=== PATIENT | female | born 1990 | race Caucasian/White ===

== ENCOUNTER 2020-09-22 13:19 | Outpatient (RCR) | payer MEDICARE, MEDICAID, SELFPAY | END 2020-10-11 13:31 | disposition home or self-care (01) | LOC: HO.WCC 13:19 | PROVIDERS: Visit Provider Physician Assistant | DX: L89.893 Pressure ulcer of other site, stage 3 (principal); L84 Corns and callosities; G40.909 Epilepsy, unspecified, not intractable, without status epilepticus; G62.9 Polyneuropathy, unspecified; F42.9 Obsessive-compulsive disorder, unspecified; F41.9 Anxiety disorder, unspecified; F95.2 Tourette's disorder | CPT/HCPCS: 99212 ==

== ENCOUNTER 2020-12-01 12:51 | Outpatient (REF) | payer MEDICARE, MEDICAID, SELFPAY ==
[2020-12-01 14:17] LABS: Neut%MD 54.7 %; Neutrophils Absolute Auto 4.5 X10*3/uL (2.0-8.3); WBCANC 8.2 X10*3/uL
[2020-12-01 15:00] LABS: Syphilis Screen Nonreactive (Nonreactive)
[2020-12-02 13:06] LABS: Antibody to SS-A Antigen <1.0 NEG AI (<1.0 NEG); Antibody to SS-B Antigen <1.0 NEG AI (<1.0 NEG)
[2020-12-04 22:47] LABS: Prot Elec - Albumin 3.8 g/dL (3.8-4.8); Prot Elec - Alpha1 0.3 g/dL (0.2-0.3); Prot Elec - Alpha2 0.9 g/dL (0.5-0.9); Prot Elec - Beta 1 0.4 g/dL (0.4-0.6); Prot Elec - Beta 2 0.3 g/dL (0.2-0.5); Prot Elec - Gamma 0.4 g/dL (0.8-1.7); Prot Elec - Total Protein 6.1 g/dL (6.1-8.1)
[2020-12-05 10:00] LABS: Ceruloplasmin 34 mg/dL (18-53)
[2020-12-05 13:27] LABS: Transglutaminase Ab IgG 1 U/mL; Transglutaminase IgA 1 U/mL
== END 2020-12-01 12:52 | disposition home or self-care (01) ==
LOC: HO.LAB 12:51
PROVIDERS: PCP Internal Medicine; Visit Provider Psychiatry & Neurology Neurology
DX: G62.9 Polyneuropathy, unspecified (principal)
CPT/HCPCS: 36415; 82390; 83516; 84155; 84165; 85048; 86235; 86780

== ENCOUNTER 2020-12-11 14:35 | Outpatient (REF) | payer MEDICARE, MEDICAID, SELFPAY ==
[2020-12-11 19:26] LABS: Free T4 (Free Thyroxine) 1.06 ng/dL (0.71-1.85); Thyroid Stimulating Hormone 5.11 uIU/mL (0.32-4.0)
== END 2020-12-11 14:36 | disposition home or self-care (01) ==
LOC: HO.MANLDS 14:35
PROVIDERS: PCP Internal Medicine; Visit Provider Physician Assistant
DX: N39.0 Urinary tract infection, site not specified (principal); R53.83 Other fatigue
CPT/HCPCS: 36415; 84439; 84443; 87086

== ENCOUNTER 2021-01-30 14:17 | Outpatient (REF) | payer MEDICARE, MEDICAID, SELFPAY ==
--- NOTE | 2021-01-30 14:30 | ECG_ITS ---
Test Reason : R00.2 Blood Pressure : / mmHG Vent. Rate : 082 BPM Atrial Rate : 082 BPM P-R Int : 148 ms QRS Dur : 076 ms QT Int : 416 ms P-R-T Axes : 017 055 070 degrees QTc Int : 486 ms Normal sinus rhythm Normal ECG No previous ECGs available Referred By: Jeovanny Ford Electronically Signed By:Geovany Darden
[2021-01-30 15:07] LABS: MANUAL DIFF FLAG NO
[2021-01-30 15:15] LABS: Basophils Absolute Auto 0.1 X10*3/uL (0.0-0.2); Basophils Percent Auto 0.7 % (0-2); Eosinophils Absolute Auto 0.3 X10*3/uL (0.0-0.4); Eosinophils Percent Auto 3.9 % (0-4); Hematocrit 36.4 % (37-47); Hemoglobin 12.2 g/dl (12.0-16.0); Imm Gran Abs Auto 0.04 X10*3/uL (0.00-0.03); Imm Gran Pct Auto 0.6 % (0.0-0.4); Lymphocytes Absolute Auto 1.9 X10*3/uL (1.2-4.9); Lymphocytes Percent Auto 25.9 % (20-40); Mean Corpuscular HGB Conc 33.5 g/dl (31.0-35.0); Mean Corpuscular Hemoglobin 29.1 pg (27.0-33.0); Mean Corpuscular Volume 86.9 fL (80-98); Mean Platelet Volume 8.8 fL (9.4-12.3); Monocytes Absolute Auto 0.3 X10*3/uL (0.1-1.2); Monocytes Percent Auto 4.8 % (2-11); Neutrophils Absolute Auto 4.6 X10*3/uL (2.0-8.3); Neutrophils Percent Auto 64.1 % (45-73); Platelet Count 235 X10*3/uL (160-400); Red Blood Count 4.19 X10*6/uL (4.20-5.50); Red Cell Distribution Width 12.6 % (11.0-16.0); White Blood Count 7.1 X10*3/uL (4.8-10.8)
[2021-01-30 15:31] LABS: C Reactive Protein 1.22 mg/dL (< or = 0.50)
[2021-01-30 15:48] LABS: Alanine Aminotransferase 28 U/L (0-31); Albumin Level 4.3 g/dL (3.5-5.0); Alkaline Phosphatase 54 U/L (39-117); Anion Gap 13 (12-20); Aspartate Amino Transferase 39 U/L (5-31); Bilirubin Total 0.3 mg/dL (0.0-1.0); Blood Urea Nitrogen 4 mg/dL (9-16); Calcium 9.1 mg/dL (8.4-10.2); Carbon Dioxide 26 mmol/L (22-29); Chloride 94 mmol/L (96-108); Estimated Glomerular Filt Rate > 60; Glucose Random 150 mg/dL (60-115); Potassium 4.4 mmol/L (3.3-5.1); Sodium 129 mmol/L (135-145); Total Protein 6.4 g/dL (6.5-8.0)
[2021-01-30 15:55] LABS: TSH reflex Free T4 1.36 uIU/mL (0.32-4.0)
[2021-01-30 16:03] LABS: Rheumatoid Factor < 15.0 IU/mL (<15.0)
[2021-01-31 08:27] LABS: Lyme Abs Screen <0.90 index
[2021-01-31 14:52] LABS: Complement C3 102 mg/dL (83-193); Immunoglobulin G 419 mg/dL (600-1640)
[2021-01-31 23:41] LABS: Anti Nuclear Antibody Screen POSITIVE (NEGATIVE); Anti Nuclear Antibody Titer 1:40 titer
== END 2021-01-30 14:18 | disposition home or self-care (01) ==
LOC: HO.LAB 14:17
PROVIDERS: Absent Provider Psychiatry & Neurology Neurology; PCP Internal Medicine; Visit Provider Internal Medicine
DX: R00.2 Palpitations (principal); M19.90 Unspecified osteoarthritis, unspecified site; R20.0 Anesthesia of skin
CPT/HCPCS: 36415; 80053; 82784; 84443; 85025; 86038; 86039; 86140; 86160; 86431; 86617; 86618; 93005

== ENCOUNTER 2021-06-18 11:59 | Outpatient (REF) | payer MEDICARE, MEDICAID, SELFPAY | END 2021-06-18 12:00 | disposition home or self-care (01) | LOC: HO.MANLDS 11:59 | PROVIDERS: PCP Physician Assistant; Visit Provider Physician Assistant | DX: R30.0 Dysuria (principal) | CPT/HCPCS: 87086 ==

== ENCOUNTER 2021-07-17 08:50 | Outpatient (RCR) | payer MEDICARE, MEDICAID, SELFPAY | END 2021-11-01 09:14 | disposition home or self-care (01) | LOC: HO.WCC 08:50 | PROVIDERS: PCP Internal Medicine; Visit Provider Physician Assistant | DX: Z09 Encounter for follow-up examination after completed treatment for conditions other than malignant neoplasm (principal); E11.40 Type 2 diabetes mellitus with diabetic neuropathy, unspecified; R26.9 Unspecified abnormalities of gait and mobility; F42.9 Obsessive-compulsive disorder, unspecified; G40.909 Epilepsy, unspecified, not intractable, without status epilepticus; Z79.2 Long term (current) use of antibiotics; Z86.31 Personal history of diabetic foot ulcer | CPT/HCPCS: 11042; 97597; 99212; 99213 ==

== ENCOUNTER 2021-08-02 12:17 | Inpatient (IN) | payer MEDICARE, MEDICAID, SELFPAY ==
[2021-08-02] VITALS (7 sets, daily range): BP systolic 105–141; BP diastolic 56–78; PULSE 108–126; RESP 15–25; TEMP 37.1; O2SAT 95–97; BMI 35.2
--- NOTE | ~2021-08-02 | XR_ITS ---
EXAMINATION: XR HIP, LEFT CLINICAL INFORMATION: Left hip pain COMPARISON: None TECHNIQUE: AP pelvis and 2 views of the left hip FINDINGS: There is no evidence of acute fracture or diastases of the pelvis. No pelvic lesion is appreciated. Sacroiliac joints unremarkable. Status post right total hip arthroplasty. There is no evidence of acute fracture or dislocation of the left hip. Left hip joint spaces maintained. On the oblique views of the left hip is a question of some regions of diminished density within the femoral head. There is no evidence of femoral head collapse. The region may be artifactual in nature with overlying pannus being present. On dedicated views of the left hip I do not see this appearance. XR/XR hip LT w PEL1V IMPRESSION: No evidence of acute fracture or diastases of the pelvis. No definite left hip abnormality appreciated with regions of diminished density on AP pelvic views likely being artifactual in nature.
--- NOTE | ~2021-08-02 | US_ITS ---
EXAMINATION: US RETROPERITONEAL LIMITED (RENAL ONLY) CLINICAL INFORMATION: [place]. COMPARISON: None TECHNIQUE: Sonographic evaluation of the kidneys was performed including grayscale and color Doppler. The study is technically limited secondary to patient body habitus and significant bowel gas. FINDINGS: RIGHT KIDNEY: 11 x 5.4 x 8.1 cm (SAG x AP x TRV). The kidney is normal in size, contour, and echogenicity. Renal cortical thickness is normal. No calculi or focal parenchymal lesions are seen. There may be mild dilation of the renal pelvis, though the study is technically limited. LEFT KIDNEY: 14.8 x 6.3 x 6.2 cm (SAG x AP x TRV). The kidney is normal in size, contour, and echogenicity. Renal cortical thickness is normal. No calculi or focal parenchymal lesions are seen. There may be mild dilation of the renal pelvis, the study is technically limited. US/US renal BI IMPRESSION: Technically limited study with possible mild dilation of the renal pelvis bilaterally. No other abnormality seen.
--- NOTE | ~2021-08-02 | MR_ITS ---
EXAMINATION: MRI LEFT FOOT WITHOUT AND WITH CONTRAST CLINICAL INFORMATION: Left lower extremity cellulitis. Left MTP ulcer. Evaluate for osteomyelitis. COMPARISON: None TECHNIQUE: MRI of the left foot was performed before and after contrast. Contrast dose 10 mL of Gadavist given intravenously. Qdfdi-aw-texh includes the forefoot and distal midfoot. FINDINGS: The exam is partially limited by motion artifact. SUBCUTANEOUS SOFT TISSUES: There is mild scattered signal primarily along the dorsal aspect of the foot. This does not enhance. This has the appearance of edema. MUSCLES AND TENDONS: There is fatty infiltration and some edema noted throughout the muscles of the foot likely reflecting denervation myositis. BONE AND JOINTS: Normal. I do not see abnormal marrow signal or bone erosion. NEUROVASCULAR STRUCTURES: Normal. MR/MR foot LT wo/w con IMPRESSION: No evidence for osteomyelitis. Mild generalized edema in the subcutaneous soft tissues. Findings consistent with denervation myositis.
--- NOTE | 2021-08-02 13:14 | ED_ITS ---
HPI - General Adult General Chief complaint: General Medical Stated complaint: fever,bodyaches Time Seen by Provider: 08/02/21 13:06 History of Present Illness HPI narrative: Patient is a 31-year-old female presents today with having sore throat. Also having tongue pain. Also having generalized body malaise. Also complaining of pain to the left hip. 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 The pain is similar. Patient had the right 1 operated on a few years ago at [facility]. Patient did not receive her COVID vaccine. She is from home. No focal weakness. Positive diffuse body ache. Related Data Allergies Allergy/AdvReac Type Severity Reaction Status Date / Time barium iodide [BARIUM IODIDE] Allergy Unknown UNKNOWN Unverified 05/18/20 16:22 carrot [CARROTS] Allergy Unknown UNKOWN Unverified 05/18/20 16:22 clonazepam [CLONAZEPAM] Allergy Unknown UNKNOWN Unverified 05/18/20 16:22 fluoxetine [From PROZAC] Allergy Unknown UNKNOWN Unverified 05/18/20 16:22 neris [NERIS] Allergy Unknown UNKNOWN Unverified 05/18/20 16:22 lactose [LACTOSE] Allergy Unknown UNKNOWN Unverified 05/18/20 16:22 latex [LATEX] Allergy Unknown UNKNOWN Unverified 05/18/20 16:22 metoclopramide [From REGLAN] Allergy Unknown UNKNOWN Unverified 05/18/20 16:22 morphine [MORPHINE] Allergy Unknown UNKNOWN Unverified 05/18/20 16:22 oats [OATS] Allergy Unknown UNKNOWN Unverified 05/18/20 16:22 peanut [PEANUT] Allergy Unknown UNKNOWN Unverified 05/18/20 16:22 pepper (genus Capsicum) Allergy Unknown UNKNOWN Unverified 05/18/20 16:22 [PEPPER] potato [POTATO] Allergy Unknown UNKNOWN Unverified 05/18/20 16:22 red dye [RED DYE] Allergy Unknown UNKNOWN Unverified 05/18/20 16:22 sumatriptan [From IMITREX] Allergy Unknown UNKNOWN Unverified 05/18/20 16:22 tetanus and diphtheria Allergy Unknown HIVES Unverified 05/18/20 16:22 toxoids [TETANUS AND DIPHTHERIA TOXOIDS] tomato [TOMATO] Allergy Unknown UNKNOWN Unverified 05/18/20 16:22 tree nut [TREE NUT] Allergy Unknown UNKNOWN Unverified 05/18/20 16:22 cephalexin Allergy Unknown Verified 08/02/21 13:37 AMBICA GUM Allergy Unknown UNKNOWN Uncoded 05/18/20 16:22 Review of Systems Review of Systems: Positive generalized body ache Minimal coughing Yes all other systems are reviewed and are negative [facility] Past Medical History Attestation statement: The following information was validated with the patient. Social History Social History Alcohol intake: never Patient Tobacco Use Status: Never used Tobacco Use of substances other than those prescribed or required for medical reasons: No Advance Directives: No Advance Directives Information Provided: No Patient : No Physical Exam Vital Signs: Vital Signs: Last Vital Signs Temp 98.7 F 08/02/21 12:37 Pulse 114 H 08/02/21 16:53 Resp 16 08/02/21 16:53 BP 122/64 08/02/21 16:53 Pulse Ox 95 08/02/21 16:53 BMI result Body Mass Index 35.2 Appearance: Alert. Oriented X3. No acute distress. Eyes: Pupils equal, round and reactive to light. ENT: Pharynx normal. No posterior pharynx erythema. Tonsils not enlarged. Tongue is normal. Neck: Normal inspection. Neck supple. No lymph nodes noted. No crepitus CVS: Normal heart rate and rhythm. Pulses normal. Normal S1 and S2 Respiratory: No respiratory distress. Breath sounds normal. No Wheezing. No rales Abdomen: Soft and nontender. No rigidity. No distention. good BS x4 Skin: Skin warm and dry. Normal skin color. Normal skin turgor. Extremities: No lower extremity edema. Neurovascular intact to all extremities. No Lacerations. No Rash Neuro: Oriented X 3. No motor deficit. No sensory deficit. Moving all extermities. No slurred speech Medical Decision Making MDM Narrative Medical decision making narrative: Patient presented with upper respiratory symptoms. Patient's flu and COVID test were negative. Strep test negative. Urine negative for infection. Sodium however came back at 125. Question etiology. Question secondary to dehydration. Patient not on hydrochlorothiazide. Has many psychiatric history is on multiple medications. Explained to patient the need to recheck sodium level. Possible admission. Maryann ackerman states that she does not want to stay. She understood the risk of having lower sodium including . Patient leaving against medical advice. Patient has no neck pain. No evidence for meningitis. No rash no cellulitis. Lab Data Result diagrams: 08/02/21 13:57 08/02/21 13:57 Labs: Lab Results 08/02/21 08/02/21 08/02/21 Range/Units 13:57 13:57 13:57 WBC 15.9 H (4.8-10.8) X10*3/uL RBC 4.43 (4.20-5.50) X10*6/uL Hgb 11.9 L (12.0-16.0) g/dl Hct 35.4 L (37.0-47.0) % MCV 79.9 L (80.0-98.0) fL MCH 26.9 L (27.0-33.0) pg MCHC 33.6 (31.0-35.0) g/dl RDW 13.7 (11.0-16.0) % Plt Count 171 (160-400) X10*3/uL MPV 8.9 L (9.4-12.3) fL Immature Gran % (Auto) 0.9 H (0.0-0.4) % Neut % (Auto) 91.0 H (45-73) % Lymph % (Auto) 3.7 L (20-40) % [place] % (Auto) 4.1 (2-11) % Eos % (Auto) 0.0 (0-4) % Baso % (Auto) 0.3 (0-2) % Lymph # (Auto) 0.6 L (1.2-4.9) X10*3/uL [place] # (Auto) 0.7 (0.1-1.2) X10*3/uL Eos # (Auto) 0.0 (0.0-0.4) X10*3/uL Baso # (Auto) 0.0 (0.0-0.2) X10*3/uL Abs Immat Gran (auto) 0.14 H (0.00-0.03) X10*3/uL Absolute Neuts (auto) 14.5 H (2.0-8.3) x10*3/uL Absolute Nucleated RBC 0.000 (0.0-0.012) X10*3/uL Nucleated RBC % (auto) 0.0 (0.0-0.2) /100WBC Smear Tech's Comments VERIFIED Sodium 125 L (135-145) mmol/L Potassium 4.7 (3.3-5.1) mmol/L Chloride 94 L (96-108) mmol/L Carbon Dioxide 20 L (22-29) mmol/L Anion Gap 16 (12-20) BUN 3 L (9-16) mg/dL Creatinine 0.70 (0.5-1.4) mg/dL Estim Creat Clear Calc 146.5 Estimated GFR > 60 Random Glucose 166 H (60-115) mg/dL Calcium 8.9 (8.4-10.2) mg/dL Beta HCG, Quant < 2 mIU/mL Urine Color Urine Appearance Urine pH (5.0-8.0) Ur Specific [place] (1.005-1.025) Urine Protein (NEG-TRACE) MG/DL Urine Glucose (UA) (NEG) MG/DL Urine Ketones (NEG) MG/DL Urine Blood (NEG) Urine Nitrite (NEG) Ur Leukocyte Esterase (NEG) Urine RBC (0) /HPF Urine WBC (0-4) /HPF Ur Squamous Epith Cells /LPF Urine Bacteria /LPF COVID-19 (ULISES) Negative (Negative) COVID-19 Clin Com See Note S. pyogenes GrpA JADON (Negative) 08/02/21 08/02/21 Range/Units 14:26 16:37 WBC (4.8-10.8) X10*3/uL RBC (4.20-5.50) X10*6/uL Hgb (12.0-16.0) g/dl Hct (37.0-47.0) % MCV (80.0-98.0) fL MCH (27.0-33.0) pg MCHC (31.0-35.0) g/dl RDW (11.0-16.0) % Plt Count (160-400) X10*3/uL MPV (9.4-12.3) fL Immature Gran % (Auto) (0.0-0.4) % Neut % (Auto) (45-73) % Lymph % (Auto) (20-40) % [place] % (Auto) (2-11) % Eos % (Auto) (0-4) % Baso % (Auto) (0-2) % Lymph # (Auto) (1.2-4.9) X10*3/uL [place] # (Auto) (0.1-1.2) X10*3/uL Eos # (Auto) (0.0-0.4) X10*3/uL Baso # (Auto) (0.0-0.2) X10*3/uL Abs Immat Gran (auto) (0.00-0.03) X10*3/uL Absolute Neuts (auto) (2.0-8.3) x10*3/uL Absolute Nucleated RBC (0.0-0.012) X10*3/uL Nucleated RBC % (auto) (0.0-0.2) /100WBC Smear Tech's Comments Sodium (135-145) mmol/L Potassium (3.3-5.1) mmol/L Chloride (96-108) mmol/L Carbon Dioxide (22-29) mmol/L Anion Gap (12-20) BUN (9-16) mg/dL Creatinine (0.5-1.4) mg/dL Estim Creat Clear Calc Estimated GFR Random Glucose (60-115) mg/dL Calcium (8.4-10.2) mg/dL Beta HCG, Quant mIU/mL Urine Color YELLOW Urine Appearance CLEAR Urine pH 5.5 (5.0-8.0) Ur Specific [place] <= 1.005 (1.005-1.025) Urine Protein NEG (NEG-TRACE) MG/DL Urine Glucose (UA) NEG (NEG) MG/DL Urine Ketones 5 (NEG) MG/DL Urine Blood NEG (NEG) Urine Nitrite NEG (NEG) Ur Leukocyte Esterase NEG (NEG) Urine RBC 0 (0) /HPF Urine WBC 0 (0-4) /HPF Ur Squamous Epith Cells 1+ /LPF Urine Bacteria TRACE /LPF COVID-19 (ULISES) (Negative) COVID-19 Clin Com S. pyogenes GrpA JADON Negative (Negative) Discharge Plan Discharge Clinical Impression: Acute hyponatremia, Left against medical advice Patient Disposition: Left Against Medical Advice Instructions: Hyponatremia (ED), Against Medical Advice (ED) Referrals: Jeovanny Ford MD [Primary Care Provider] - 2 days (Change of mind please come back to the emergency department.)
[2021-08-02] MEDS: Ketorolac Tromethamine 30 MG/ML VIAL IVPUSH (13:37)
[2021-08-02] MEDS: 0.9 % Sodium Chloride 1,000 ML 999 ML IV ×4 (13:37→18:38)
[2021-08-02 14:08] LABS: Basophils Percent Auto 0.3 % (0-2); Hematocrit 35.4 % (37.0-47.0); Hemoglobin 11.9 g/dl (12.0-16.0); Imm Gran Abs Auto 0.14 X10*3/uL (0.00-0.03); Imm Gran Pct Auto 0.9 % (0.0-0.4); Lymphocytes Absolute Auto 0.6 X10*3/uL (1.2-4.9); Lymphocytes Percent Auto 3.7 % (20-40); MANUAL DIFF FLAG SCAN; Mean Corpuscular HGB Conc 33.6 g/dl (31.0-35.0); Mean Corpuscular Hemoglobin 26.9 pg (27.0-33.0); Mean Corpuscular Volume 79.9 fL (80.0-98.0); Mean Platelet Volume 8.9 fL (9.4-12.3); Monocytes Absolute Auto 0.7 X10*3/uL (0.1-1.2); Monocytes Percent Auto 4.1 % (2-11); Neutrophils Absolute Auto 14.5 x10*3/uL (2.0-8.3); Platelet Count 171 X10*3/uL (160-400); Red Blood Count 4.43 X10*6/uL (4.20-5.50); Red Cell Distribution Width 13.7 % (11.0-16.0); SCAN SMEAR FLAG 1; White Blood Count 15.9 X10*3/uL (4.8-10.8)
[2021-08-02 14:21] LABS: COVID-19 Test Negative (Negative)
[2021-08-02 14:25] LABS: HCG Quantitative < 2 mIU/mL; SLIDE REVIEW VERIFIED
[2021-08-02 14:29] LABS: Anion Gap 16 (12-20); Blood Urea Nitrogen 3 mg/dL (9-16); Calcium 8.9 mg/dL (8.4-10.2); Carbon Dioxide 20 mmol/L (22-29); Chloride 94 mmol/L (96-108); Creatinine Clr Calc Pharmacy 146.5; Estimated Glomerular Filt Rate > 60; Glucose Random 166 mg/dL (60-115); Potassium 4.7 mmol/L (3.3-5.1); Sodium 125 mmol/L (135-145)
[2021-08-02 15:03] LABS: Strep A Nucleic Acid Negative (Negative)
[2021-08-02] MEDS: LORazepam 2 MG/ML VIAL 1 MG IVPUSH ×2 (15:27→19:48)
[2021-08-02 16:41] LABS: Appearance Urine CLEAR; Color Urine YELLOW; Glucose Urine UA NEG (NEG); Leukocyte Esterase Urine NEG (NEG); Nitrite Urine NEG (NEG); PH 5.5 (5.0-8.0); Specific Gravity - Urine <= 1.005 (1.005-1.025); Urine Blood NEG (NEG); Urine Ketones 5 MG/DL (NEG); Urine Protein NEG (NEG-TRACE)
[2021-08-02 16:49] LABS: Bacteria Urine TRACE /LPF; RBC Urine 0 /HPF (0); Squamous Epithelial Cell Urine 1+ /LPF; WBC Urine 0 /HPF (0-4)
--- NOTE | 2021-08-02 17:55 | ED_ITS ---
HPI - General Adult General Chief complaint: General Medical Stated complaint: fever,bodyaches Time Seen by Provider: 08/02/21 13:06 Related Data Allergies Allergy/AdvReac Type Severity Reaction Status Date / Time barium iodide [BARIUM IODIDE] Allergy Unknown UNKNOWN Unverified 05/18/20 16:22 carrot [CARROTS] Allergy Unknown UNKOWN Unverified 05/18/20 16:22 clonazepam [CLONAZEPAM] Allergy Unknown UNKNOWN Unverified 05/18/20 16:22 fluoxetine [From PROZAC] Allergy Unknown UNKNOWN Unverified 05/18/20 16:22 neris [NERIS] Allergy Unknown UNKNOWN Unverified 05/18/20 16:22 lactose [LACTOSE] Allergy Unknown UNKNOWN Unverified 05/18/20 16:22 latex [LATEX] Allergy Unknown UNKNOWN Unverified 05/18/20 16:22 metoclopramide [From REGLAN] Allergy Unknown UNKNOWN Unverified 05/18/20 16:22 morphine [MORPHINE] Allergy Unknown UNKNOWN Unverified 05/18/20 16:22 oats [OATS] Allergy Unknown UNKNOWN Unverified 05/18/20 16:22 peanut [PEANUT] Allergy Unknown UNKNOWN Unverified 05/18/20 16:22 pepper (genus Capsicum) Allergy Unknown UNKNOWN Unverified 05/18/20 16:22 [PEPPER] potato [POTATO] Allergy Unknown UNKNOWN Unverified 05/18/20 16:22 red dye [RED DYE] Allergy Unknown UNKNOWN Unverified 05/18/20 16:22 sumatriptan [From IMITREX] Allergy Unknown UNKNOWN Unverified 05/18/20 16:22 tetanus and diphtheria Allergy Unknown HIVES Unverified 05/18/20 16:22 toxoids [TETANUS AND DIPHTHERIA TOXOIDS] tomato [TOMATO] Allergy Unknown UNKNOWN Unverified 05/18/20 16:22 tree nut [TREE NUT] Allergy Unknown UNKNOWN Unverified 05/18/20 16:22 cephalexin Allergy Unknown Verified 08/02/21 13:37 AMBICA GUM Allergy Unknown UNKNOWN Uncoded 05/18/20 16:22 PMFSH Social History Social History Alcohol intake: never Patient Tobacco Use Status: Never used Tobacco Use of substances other than those prescribed or required for medical reasons: No Advance Directives: No Advance Directives Information Provided: No Patient : No Physical Exam Vital Signs: Vital Signs: Last Vital Signs Temp 98.7 F 08/02/21 12:37 Pulse 114 H 08/02/21 16:53 Resp 16 08/02/21 16:53 BP 122/64 08/02/21 16:53 Pulse Ox 95 08/02/21 16:53 BMI result Body Mass Index 35.2 Medical Decision Making Lab Data Result diagrams: 08/02/21 13:57 08/02/21 13:57 Labs: Lab Results 08/02/21 08/02/21 08/02/21 Range/Units 13:57 13:57 13:57 WBC 15.9 H (4.8-10.8) X10*3/uL RBC 4.43 (4.20-5.50) X10*6/uL Hgb 11.9 L (12.0-16.0) g/dl Hct 35.4 L (37.0-47.0) % MCV 79.9 L (80.0-98.0) fL MCH 26.9 L (27.0-33.0) pg MCHC 33.6 (31.0-35.0) g/dl RDW 13.7 (11.0-16.0) % Plt Count 171 (160-400) X10*3/uL MPV 8.9 L (9.4-12.3) fL Immature Gran % (Auto) 0.9 H (0.0-0.4) % Neut % (Auto) 91.0 H (45-73) % Lymph % (Auto) 3.7 L (20-40) % [place] % (Auto) 4.1 (2-11) % Eos % (Auto) 0.0 (0-4) % Baso % (Auto) 0.3 (0-2) % Lymph # (Auto) 0.6 L (1.2-4.9) X10*3/uL [place] # (Auto) 0.7 (0.1-1.2) X10*3/uL Eos # (Auto) 0.0 (0.0-0.4) X10*3/uL Baso # (Auto) 0.0 (0.0-0.2) X10*3/uL Abs Immat Gran (auto) 0.14 H (0.00-0.03) X10*3/uL Absolute Neuts (auto) 14.5 H (2.0-8.3) x10*3/uL Absolute Nucleated RBC 0.000 (0.0-0.012) X10*3/uL Nucleated RBC % (auto) 0.0 (0.0-0.2) /100WBC Smear Tech's Comments VERIFIED Sodium 125 L (135-145) mmol/L Potassium 4.7 (3.3-5.1) mmol/L Chloride 94 L (96-108) mmol/L Carbon Dioxide 20 L (22-29) mmol/L Anion Gap 16 (12-20) BUN 3 L (9-16) mg/dL Creatinine 0.70 (0.5-1.4) mg/dL Estim Creat Clear Calc 146.5 Estimated GFR > 60 POC Glucose (60-115) mg/dL Random Glucose 166 H (60-115) mg/dL Calcium 8.9 (8.4-10.2) mg/dL Beta HCG, Quant < 2 mIU/mL Urine Color Urine Appearance Urine pH (5.0-8.0) Ur Specific [place] (1.005-1.025) Urine Protein (NEG-TRACE) MG/DL Urine Glucose (UA) (NEG) MG/DL Urine Ketones (NEG) MG/DL Urine Blood (NEG) Urine Nitrite (NEG) Ur Leukocyte Esterase (NEG) Urine RBC (0) /HPF Urine WBC (0-4) /HPF Ur Squamous Epith Cells /LPF Urine Bacteria /LPF COVID-19 (ULISES) Negative (Negative) COVID-19 Clin Com See Note S. pyogenes GrpA JADON (Negative) 08/02/21 08/02/21 08/02/21 Range/Units 14:26 16:37 18:07 WBC (4.8-10.8) X10*3/uL RBC (4.20-5.50) X10*6/uL Hgb (12.0-16.0) g/dl Hct (37.0-47.0) % MCV (80.0-98.0) fL MCH (27.0-33.0) pg MCHC (31.0-35.0) g/dl RDW (11.0-16.0) % Plt Count (160-400) X10*3/uL MPV (9.4-12.3) fL Immature Gran % (Auto) (0.0-0.4) % Neut % (Auto) (45-73) % Lymph % (Auto) (20-40) % [place] % (Auto) (2-11) % Eos % (Auto) (0-4) % Baso % (Auto) (0-2) % Lymph # (Auto) (1.2-4.9) X10*3/uL [place] # (Auto) (0.1-1.2) X10*3/uL Eos # (Auto) (0.0-0.4) X10*3/uL Baso # (Auto) (0.0-0.2) X10*3/uL Abs Immat Gran (auto) (0.00-0.03) X10*3/uL Absolute Neuts (auto) (2.0-8.3) x10*3/uL Absolute Nucleated RBC (0.0-0.012) X10*3/uL Nucleated RBC % (auto) (0.0-0.2) /100WBC Smear Tech's Comments Sodium (135-145) mmol/L Potassium (3.3-5.1) mmol/L Chloride (96-108) mmol/L Carbon Dioxide (22-29) mmol/L Anion Gap (12-20) BUN (9-16) mg/dL Creatinine (0.5-1.4) mg/dL Estim Creat Clear Calc Estimated GFR POC Glucose 140 H (60-115) mg/dL Random Glucose (60-115) mg/dL Calcium (8.4-10.2) mg/dL Beta HCG, Quant mIU/mL Urine Color YELLOW Urine Appearance CLEAR Urine pH 5.5 (5.0-8.0) Ur Specific [place] <= 1.005 (1.005-1.025) Urine Protein NEG (NEG-TRACE) MG/DL Urine Glucose (UA) NEG (NEG) MG/DL Urine Ketones 5 (NEG) MG/DL Urine Blood NEG (NEG) Urine Nitrite NEG (NEG) Ur Leukocyte Esterase NEG (NEG) Urine RBC 0 (0) /HPF Urine WBC 0 (0-4) /HPF Ur Squamous Epith Cells 1+ /LPF Urine Bacteria TRACE /LPF COVID-19 (ULISES) (Negative) COVID-19 Clin Com S. pyogenes GrpA JADON Negative (Negative) Discharge Plan Discharge Clinical Impression: Acute hyponatremia, Left against medical advice Patient Disposition: Left Against Medical Advice Instructions: Hyponatremia (ED), Against Medical Advice (ED) Referrals: Jeovanny Ford MD [Primary Care Provider] - 2 days (Change of mind please come back to the emergency department.)
[2021-08-02 18:12] LABS: Glucose, Whole Blood 140 mg/dL (60-115)
[2021-08-02 18:27] LABS: Anion Gap 17 (12-20); Blood Urea Nitrogen 3 mg/dL (9-16); Calcium 8.8 mg/dL (8.4-10.2); Carbon Dioxide 19 mmol/L (22-29); Chloride 98 mmol/L (96-108); Creatinine Clr Calc Pharmacy 157.8; Estimated Glomerular Filt Rate > 60; Glucose Random 150 mg/dL (60-115); Potassium 4.3 mmol/L (3.3-5.1); Sodium 130 mmol/L (135-145)
[2021-08-02] MEDS: ondansetron HCL 4 MG/2 ML VIAL IVPUSH ×2 (18:29→21:45)
[2021-08-02] MEDS: Clindamycin Phosphate/D5W 300 MG/50 ML PIGGYBACK 100 MG IV (18:38)
--- NOTE | 2021-08-02 18:53 | PC.NURSE ---
in room, decision to draw cultures and lactic made. ABX scanned and hung but ABX are not infusing at this time. paused in OCT. pt has not received any ABX at this time. will restart ABX following culture collection
--- NOTE | 2021-08-02 19:37 | PC.NURSE ---
this rn covering for jenny ohara. client was incontinent of stool, diarrhea dark brown in nature. client is independent at home but states she is not able to bear weight or move here. Able to pivot to bedside commode with one assist. pt vomitting bile at this time. requesting something for anxiety, pain and nausea. Dr. Mancia aware, passed on to carroll alvarado who returned from her break.
--- NOTE | 2021-08-02 19:37 | PHA.MEDREC ---
Pharmacy Consult ? Medication Reconciliation Pharmacy has completed the medication reconciliation. Patient provided us with a medication list dated July 2020. I tried to piece together the current regimen by including the current external pharmacy fill history and matching what the patient said she is taking. The mother said she can get overwhelmed with the amount of medications she has to take.
[2021-08-02] MEDS: Acetaminophen 325 MG TABLET 650 MG PO (19:48)
--- NOTE | 2021-08-02 19:55 | PC.NURSE ---
pt with family at bedside
--- NOTE | 2021-08-02 21:07 | PC.NURSE ---
PT VERY DIFFICULT STICK. phlebotomy, 2 rns and one tech attempted. cultures and lactic were able to get drawn after multiple attempts. will start pt on ABX at this time.
--- NOTE | 2021-08-02 21:11 | PC.NURSE ---
pt transitioned into a hospital bed
--- NOTE | 2021-08-02 21:20 | P.HPHOSP_ITS ---
History of Present Illness Date of Service: 08/02/21 Chief Complaint: muscle pain this is a 31-year-old female with an extensive past medical history that includes diabetes, GERD, depression, anxiety, chronic pain, hypothyroidism, restless leg syndrome among others who presents to the hospital with complaints fever as well as overall not feeling well, having muscle pain. Patient is very distraught, crying, not really giving a good history she just keeps saying that she is in pain all over her body and is chronic. Her daughters visit her today, was concerned about her code she also has a left foot base ulcer that looked infected and therefore called the ambulance and was brought into the hospital. Patient reports a headache and history of migraines, denies any dizziness or blurred vision, denies any chest pain, no shortness of breath, she is complaining of generalized abdominal pain, has nausea vomiting and diarrhea that has now improved, she is reporting that she has had fevers of 100.9 at [place] [facility]. Denies any urinary symptoms. patient reports left hip pain All other review of system negative on arrival to the ED patient hemodynamically stable with a temp of 98.7?, heart rate of 111, respiratory rate of 25, satting 96% on room air labs on arrival significant for WBC count of 15.9, hemoglobin of 11.9, hematocrit 35.4, sodium level of 125, creatinine of 0.7, glucose of 166, lactic acid of 4.0, CRP of 21.2, UA negative, COV hip pelvic x-ray shows no evidence of acute fracture or this cc of the pelvis. patient received 2 L of NS In the ED which caused her sodium to correct from 125-130. Patient will be admitted for further management Review of Systems Review of Systems: Yes all other systems are reviewed and are negative [facility] Medical History (Updated 08/03/21 @ 05:45 by Mary Robert MD) Anxiety and depression Avascular necrosis Chronic pain Diabetes Restless leg syndrome Family History (Updated 08/03/21 @ 05:43 by Mary Robert MD) Father Non Hodgkin's lymphoma Surgical History (Updated 08/03/21 @ 05:42 by Mary Robert MD) History of right hip replacement Social History Household Members: Family Housing: Apartment Do you presently have visiting nurse or other home services: Yes (visiting nurse for wound care) Alcohol intake: never Patient Tobacco Use Status: Never used Tobacco Use of substances other than those prescribed or required for medical reasons: No Currently Displaying Signs/Symptoms of Drug Intoxication Withdrawal: No Any prior treatment program specific to substance use: No Have you been hit, kicked, punched, or otherwise hurt by someone within the past year? If so, by whom?: No Do you feel safe in your current relationship?: No Is there a partner from a previous relationship who is making you feel unsafe now?: No Are you made to feel afraid or neglected: No Advance Directives: No Advance Directives Information Provided: No Do you have thoughts of harming others: None Do you have a plan to hurt others: No Plan Recently lost weight without trying: Unsure Eating poorly because of decreased appetite: Yes Nutrition Risks: Poor intake 0-25% >4 days Patient : No : No Poor oral hygiene: No Meds Allergies Allergy/AdvReac Type Severity Reaction Status Date / Time barium iodide [BARIUM IODIDE] Allergy Unknown UNKNOWN Verified 08/02/21 21:22 carrot [CARROTS] Allergy Unknown UNKOWN Verified 08/02/21 21: clonazepam [CLONAZEPAM] Allergy Unknown UNKNOWN Verified 08/02/21 21:22 fluoxetine [From PROZAC] Allergy Unknown UNKNOWN Verified 08/02/21 21:22 neris [NERIS] Allergy Unknown UNKNOWN Verified 08/02/21 21:22 lactose [LACTOSE] Allergy Unknown UNKNOWN Verified 08/02/21 21:22 latex [LATEX] Allergy Unknown UNKNOWN Verified 08/02/21 21:22 metoclopramide [From REGLAN] Allergy Unknown UNKNOWN Verified 08/02/21 21:22 morphine [MORPHINE] Allergy Unknown UNKNOWN Verified 08/02/21 21:22 oats [OATS] Allergy Unknown UNKNOWN Verified 08/02/21 21:22 peanut [PEANUT] Allergy Unknown UNKNOWN Verified 08/02/21 21:22 pepper (genus Capsicum) Allergy Unknown UNKNOWN Verified 08/02/21 21:22 [PEPPER] potato [POTATO] Allergy Unknown UNKNOWN Verified 08/02/21 21:22 red dye [RED DYE] Allergy Unknown UNKNOWN Verified 08/02/21 21:22 sumatriptan [From IMITREX] Allergy Unknown UNKNOWN Verified 08/02/21 21:22 tetanus and diphtheria Allergy Unknown HIVES Verified 08/02/21 21:22 toxoids [TETANUS AND DIPHTHERIA TOXOIDS] tomato [TOMATO] Allergy Unknown UNKNOWN Verified 08/02/21 21:22 tree nut [TREE NUT] Allergy Unknown UNKNOWN Verified 08/02/21 21:22 cephalexin Allergy Unknown Verified 08/02/21 21:22 AMBICA GUM Allergy Unknown UNKNOWN Uncoded 05/18/20 16:22 Active Medications: Current Medications Clindamycin Phosphate (Cleocin) 300 mg in 50 mls @ 100 mls/hr IV Q6H JUAN Last Infusion: 08/02/21 21:09 Dose: 100 mls/hr Documented by: Pharmacy Consult (Consult Rx Perform Med Rec) 1 each MISCELLANE ONCE PRN PRN Reason: Consult order Home Medications Medication Instructions Recorded Confirmed Last Taken Type albuterol sulfate 90 mcg/actuation 2 puff INHALATION Q4H PRN 08/02/21 08/02/21 Unknown History aerosol inhaler benztropine 0.5 mg tablet 0.5 mg PO DAILY 08/02/21 08/02/21 Unknown History dfqicgvtus-edkqxwmqwdzsy-nfhdtzci 1 tab PO BID PRN 08/02/21 08/02/21 Unknown History 50 mg-325 mg-40 mg tablet cholecalciferol (vitamin D3) 50 50 mcg PO DAILY 08/02/21 08/02/21 Unknown History mcg (2,000 unit) tablet (Vitamin D3) clomipramine 75 mg capsule 150 mg PO DAILY 08/02/21 08/02/21 Unknown History clonidine HCl 0.1 mg tablet 1 tab PO BID 08/02/21 08/02/21 Unknown History colesevelam 625 mg tablet 1,250 mg PO BID 08/02/21 08/02/21 Unknown History cranberry 1,000 mg capsule 4,200 mg PO DAILY 08/02/21 08/02/21 Unknown History dexlansoprazole 60 mg 1 cap PO DAILY 08/02/21 08/02/21 Unknown History capsule,biphase delayed release (Dexilant) diclofenac sodium 75 mg 1 tab PO BID 08/02/21 08/02/21 Unknown History tablet,delayed release docusate sodium 100 mg capsule 1 cap PO DAILY 08/02/21 08/02/21 Unknown History escitalopram oxalate 20 mg tablet 30 mg PO DAILY 08/02/21 08/02/21 Unknown History famotidine 40 mg tablet 1 tab PO DAILY 08/02/21 08/02/21 Unknown History ferrous sulfate 325 mg (65 mg 325 mg PO DAILY 08/02/21 08/02/21 Unknown History iron) tablet (iron) fexofenadine 180 mg tablet 180 mg PO DAILY 08/02/21 08/02/21 Unknown History fluticasone propionate 50 1 spray INTRANASAL DAILY PRN 08/02/21 08/02/21 Unknown History mcg/actuation nasal spray,suspension gabapentin 600 mg tablet 600 mg PO QID 08/02/21 08/02/21 Unknown History haloperidol 5 mg tablet 7.5 mg PO DAILY 08/02/21 08/02/21 Unknown History levothyroxine 175 mcg tablet 1 tab PO DAILY 08/02/21 08/02/21 Unknown History lorazepam 1 mg tablet 1 mg PO QID 08/02/21 08/02/21 Unknown History magnesium oxide 400 mg (241.3 mg 1 tab PO DAILY 08/02/21 08/02/21 Unknown History magnesium) tablet melatonin 10 mg tablet 10 mg PO BEDTIME PRN 08/02/21 08/02/21 Unknown History methocarbamol 750 mg tablet 1 tab PO TID 08/02/21 08/02/21 Unknown History metoprolol tartrate 25 mg tablet 1 tab PO BID 08/02/21 08/02/21 Unknown History montelukast 10 mg tablet 1 tab PO DAILY 08/02/21 08/02/21 Unknown History oxycodone-acetaminophen 10 mg-325 1 tab PO QID 08/02/21 08/02/21 Unknown History mg tablet quetiapine 100 mg tablet 1 tab PO BEDTIME 08/02/21 08/02/21 Unknown History ropinirole 0.5 mg tablet 1 tab PO BEDTIME 08/02/21 08/02/21 Unknown History Physical Exam Vital Signs and Narrative: Vital Signs: Last Vital Signs Temp 98.7 F 08/02/21 12:37 Pulse 124 H 08/02/21 21:05 Resp 15 08/02/21 21:05 BP 140/78 H 08/02/21 21:05 Pulse Ox 95 08/02/21 16:53 BMI result Body Mass Index 35.2 Const: Other: patient is significant mono distress, crying Orientation/consciousness: patient oriented x3 Eyes: General: appearance normal, both eyes and all related structures Pupils: Equal, round and reactive pupils present Resp: Effort & Inspection: normal respiratory effort Auscultation: clear to auscultation bilaterally Cardio: Rate: regular rate Rhythm: regular rhythm GI: Palpation (GI): Soft to palpation Auscultation: normal bowel sounds Skin: Other: has erythema , warmth, tenderness, edema from left foot all the way to just below the left knee, has an ulcer at the base of left 5th MTP, in base, nondraining, no swelling, patient reports tenderness when I palpate Neuro: General: patient oriented x3 Cranial nerves: Yes Equal, round and reactive pupils present Cognition (Neuro): normal cognition Extrem: Other: erythema, warmth, tenderness, and swelling of the left cheek more Results Labs CBC and Chem 7: 08/03/21 04:22 08/03/21 04:22 Labs: Laboratory Results - last 24 hr 08/02/21 08/02/21 08/02/21 13:57 13:57 13:57 MCV 79.9 L MCH 26.9 L MCHC 33.6 RDW 13.7 Plt Count 171 MPV 8.9 L Immature Gran % (Auto) 0.9 H Neut % (Auto) 91.0 H Lymph % (Auto) 3.7 L [place] % (Auto) 4.1 Eos % (Auto) 0.0 Baso % (Auto) 0.3 Lymph # (Auto) 0.6 L [place] # (Auto) 0.7 Eos # (Auto) 0.0 Baso # (Auto) 0.0 Abs Immat Gran (auto) 0.14 H Absolute Neuts (auto) 14.5 H Absolute Nucleated RBC 0.000 Nucleated RBC % (auto) 0.0 Smear Tech's Comments VERIFIED Anion Gap 16 Estim Creat Clear Calc 146.5 Estimated GFR > 60 POC Glucose Random Glucose 166 H Calcium 8.9 Beta HCG, Quant < 2 Urine Color Urine Appearance Urine pH Ur Specific [place] Urine Protein Urine Glucose (UA) Urine Ketones Urine Blood Urine Nitrite Ur Leukocyte Esterase Urine RBC Urine WBC Ur Squamous Epith Cells Urine Bacteria COVID-19 (ULISES) Negative COVID-19 Clin Com See Note S. pyogenes GrpA JADON 08/02/21 08/02/21 08/02/21 14:26 16:37 18:04 MCV MCH MCHC RDW Plt Count MPV Immature Gran % (Auto) Neut % (Auto) Lymph % (Auto) [place] % (Auto) Eos % (Auto) Baso % (Auto) Lymph # (Auto) [place] # (Auto) Eos # (Auto) Baso # (Auto) Abs Immat Gran (auto) Absolute Neuts (auto) Absolute Nucleated RBC Nucleated RBC % (auto) Smear Tech's Comments Anion Gap 17 Estim Creat Clear Calc 157.8 Estimated GFR > 60 POC Glucose Random Glucose 150 H Calcium 8.8 Beta HCG, Quant Urine Color YELLOW Urine Appearance CLEAR Urine pH 5.5 Ur Specific [place] <= 1.005 Urine Protein NEG Urine Glucose (UA) NEG Urine Ketones 5 Urine Blood NEG Urine Nitrite NEG Ur Leukocyte Esterase NEG Urine RBC 0 Urine WBC 0 Ur Squamous Epith Cells 1+ Urine Bacteria TRACE COVID-19 (ULISES) COVID-19 Clin Com S. pyogenes GrpA JADON Negative 08/02/21 18:07 MCV MCH MCHC RDW Plt Count MPV Immature Gran % (Auto) Neut % (Auto) Lymph % (Auto) [place] % (Auto) Eos % (Auto) Baso % (Auto) Lymph # (Auto) [place] # (Auto) Eos # (Auto) Baso # (Auto) Abs Immat Gran (auto) Absolute Neuts (auto) Absolute Nucleated RBC Nucleated RBC % (auto) Smear Tech's Comments Anion Gap Estim Creat Clear Calc Estimated GFR POC Glucose 140 H Random Glucose Calcium Beta HCG, Quant Urine Color Urine Appearance Urine pH Ur Specific [place] Urine Protein Urine Glucose (UA) Urine Ketones Urine Blood Urine Nitrite Ur Leukocyte Esterase Urine RBC Urine WBC Ur Squamous Epith Cells Urine Bacteria COVID-19 (ULISES) COVID-19 Clin Com S. pyogenes GrpA JADON Imaging Radiologist's Impressions: Impressions Hip/Pelvis X-Ray 08/02/21 13:35 IMPRESSION: No evidence of acute fracture or diastases of the pelvis. No definite left hip abnormality appreciated with regions of diminished density on AP pelvic views likely being artifactual in nature. Assessment and Plan (1) Acute hyponatremia: Status: Acute (2) Cellulitis: Status: Acute (3) Lactic acidosis: Status: Acute this is a 31-year-old female with an extensive past medical history as well as extensive psych history presents to the hospital with vague symptoms including migraine headache, muscle pains, just generally not feeling found to have hyponatremia # hypernatremia - possibly secondary to low oral intake as well as secondary to her antipsychotics as well as as mood modifying medications. - patient reports that she has not had anything to eat or drink for few days - corrected to 130 after receiving 2 L bolus of NS - nephrology consulted - initially started patient on NS at 80 cc an hour given her lactic acidosis, but repeat BMP shows a sodium of 126 therefore will stop fluids, pending further nephrology recommendation - were unable to obtain urine studies prior to her receiving fluids as she had already received 2 L and therefore unlikely to yield accurate information # cellulitis - left lower extremity cellulitis as well as an ulcer at the base of the 5th MTP on the left - normal ESR, ulcer appears clean, elevated CRP - at this time will start her on broad-spectrum antibiotics - will hold off on ordering MRI pending infectious disease recommendation - follow cultures # lactic acidosis - most likely secondary to acute infection - improved with IV fluids, given her hyponatremia fluids have been stopped - follow lactic acid level # diabetes - patient reports history of diabetes but does not appear to be on any medications - slightly hyperglycemic on arrival - will start her on low-dose sliding scale insulin, diabetic diet, pock q.i.d. a.c. # multiple psych issues - at this time will Hold her antidepressants given her hyponatremia pending f urther recommendation by nephrology # hypothyroidism - continue levothyroxine DVT prophylaxis: Lovenox Quality Stroke Does the patient have a stroke diagnosis?: No VTE Prior VTE?: No VTE Risk Level:: Medical - moderate - high VTE Device Contraindication: Treatment Not Indicated VTE Drug Contraindication: N/A - Med Ordered
[2021-08-02 21:35] LABS: C Reactive Protein 21.23 mg/dL (< or = 0.50)
[2021-08-02] MEDS: QUEtiapine Fumarate 100 MG TABLET PO (21:57)
[2021-08-02] MEDS: Gabapentin 600 MG TABLET PO (21:57)
[2021-08-02] MEDS: cloNIDine HCL 0.1 MG TABLET PO (21:57)
[2021-08-02] MEDS: rOPINIRole HCL 0.5 MG TABLET PO (21:57)
[2021-08-02] MEDS: Metoprolol Tartrate 25 MG TABLET PO (21:57)
[2021-08-02] MEDS: Piperacillin Sodium/Tazobactam 3.375 GM in 0.9 % Sodium Chloride 50 ML IV (21:58)
[2021-08-02] MEDS: Enoxaparin Sodium 40 MG/0.4 ML SYRINGE SUBCUT (22:01)
[2021-08-02 22:05] LABS: Anion Gap 17 (12-20); Blood Urea Nitrogen 4 mg/dL (9-16); Calcium 8.4 mg/dL (8.4-10.2); Carbon Dioxide 17 mmol/L (22-29); Chloride 102 mmol/L (96-108); Creatinine Clr Calc Pharmacy 162.8; Estimated Glomerular Filt Rate > 60; Glucose Random 184 mg/dL (60-115); Potassium 4.5 mmol/L (3.3-5.1); Sodium 131 mmol/L (135-145)
[2021-08-02 22:19] LABS: Glucose, Whole Blood 167 mg/dL (60-115)
[2021-08-02 22:25] LABS: Erythrocyte Sedimentation Rate 16 MM/HR (0-20)
[2021-08-02] MEDS: vancomycin HCL 1,500 MG in 0.9 % Sodium Chloride 500 ML 333.33 MG IV (22:59)
[2021-08-02 23:04] LABS: Reflex Lactate? Lactic Acid Added
--- NOTE | 2021-08-02 23:58 | PC.NURSE ---
Report called to inestefania RN. Pt transferred in hospital bed via EDTs, sent in stable condition w/ all belongings
[2021-08-03] VITALS (13 sets, daily range): BP systolic 106–165; BP diastolic 55–92; PULSE 90–112; RESP 16–20; TEMP 36.1–38.1; O2SAT 94–100; BMI 38.3
[2021-08-03 00:08] LABS: ~Lactic Acid-LAB USE ONLY 5.3 mmol/L (0.5-2.0)
[2021-08-03] MEDS: 0.9 % Sodium Chloride Flush 3 ML SYRINGE IVFLUSH ×3 (00:25→21:48)
[2021-08-03] MEDS: oxyCODONE HCl Immed Release 5 MG TABLET 10 MG PO ×3 (00:32→23:04)
[2021-08-03] MEDS: Melatonin 3 MG TABLET 9 MG PO ×2 (00:32→23:03)
[2021-08-03] MEDS: LORazepam 1 MG TABLET PO ×2 (00:32→23:04)
[2021-08-03 01:09] LABS: Anion Gap 15 (12-20); Blood Urea Nitrogen 4 mg/dL (9-16); Calcium 8.6 mg/dL (8.4-10.2); Carbon Dioxide 19 mmol/L (22-29); Chloride 101 mmol/L (96-108); Creatinine Clr Calc Pharmacy 167.6; Estimated Glomerular Filt Rate > 60; Glucose Random 159 mg/dL (60-115); Potassium 3.9 mmol/L (3.3-5.1); Sodium 131 mmol/L (135-145)
[2021-08-03 01:35] LABS: Reflex Lactate? 2 Y
[2021-08-03] MEDS: 0.9 % Sodium Chloride 1,000 ML 80 ML IVCONT (01:53)
[2021-08-03 02:12] LABS: ~Lactic Acid-LAB USE ONLY 4.1 mmol/L (0.5-2.0)
[2021-08-03] MEDS: Butalb/Acetamin/Caff 50/325/40 TABLET 1 TAB PO ×3 (03:08→21:43)
[2021-08-03] MEDS: Piperacillin Sodium/Tazobactam 3.375 GM in 0.9 % Sodium Chloride 50 ML IV ×4 (03:10→21:46)
[2021-08-03] MEDS: Acetaminophen 325 MG TABLET PO (03:39)
[2021-08-03] MEDS: Clindamycin Phosphate/D5W 300 MG/50 ML PIGGYBACK 100 MG IV (03:43)
[2021-08-03 04:28] LABS: MANUAL DIFF FLAG NO
[2021-08-03 04:55] LABS: Basophils Percent Auto 0.1 % (0-2); Eosinophils Percent Auto 0.1 % (0-4); Hematocrit 28.6 % (37.0-47.0); Hemoglobin 9.8 g/dl (12.0-16.0); Imm Gran Abs Auto 0.13 X10*3/uL (0.00-0.03); Imm Gran Pct Auto 1.5 % (0.0-0.4); Lymphocytes Absolute Auto 0.6 X10*3/uL (1.2-4.9); Lymphocytes Percent Auto 6.8 % (20-40); Mean Corpuscular HGB Conc 34.3 g/dl (31.0-35.0); Mean Corpuscular Hemoglobin 27.2 pg (27.0-33.0); Mean Corpuscular Volume 79.4 fL (80.0-98.0); Mean Platelet Volume 8.9 fL (9.4-12.3); Monocytes Absolute Auto 0.2 X10*3/uL (0.1-1.2); Monocytes Percent Auto 2.8 % (2-11); Neutrophils Absolute Auto 7.7 x10*3/uL (2.0-8.3); Neutrophils Percent Auto 88.7 % (45-73); Platelet Count 139 X10*3/uL (160-400); Red Cell Distribution Width 13.8 % (11.0-16.0); White Blood Count 8.7 X10*3/uL (4.8-10.8)
[2021-08-03 05:01] LABS: Anion Gap 14 (12-20); Blood Urea Nitrogen 3 mg/dL (9-16); Calcium 8.1 mg/dL (8.4-10.2); Carbon Dioxide 16 mmol/L (22-29); Chloride 99 mmol/L (96-108); Creatinine Clr Calc Pharmacy 181.8; Estimated Glomerular Filt Rate > 60; Glucose Random 177 mg/dL (60-115); Potassium 3.6 mmol/L (3.3-5.1); Sodium 126 mmol/L (135-145)
[2021-08-03] MEDS: Levothyroxine Sodium 175 MCG TABLET PO (06:06)
[2021-08-03 06:42] LABS: Anion Gap 13 (12-20); Blood Urea Nitrogen 4 mg/dL (9-16); Calcium 8.4 mg/dL (8.4-10.2); Carbon Dioxide 18 mmol/L (22-29); Chloride 101 mmol/L (96-108); Estimated Glomerular Filt Rate > 60; Glucose Random 142 mg/dL (60-115); Potassium 3.7 mmol/L (3.3-5.1); Sodium 128 mmol/L (135-145)
[2021-08-03 07:39] LABS: Glucose, Whole Blood 136 mg/dL (60-115)
--- NOTE | 2021-08-03 07:41 | PHA.PROG ---
Admission Date/Time: August 02, 2021 21:18 Indication: SKIN AND SKIN STRUCTURE Weight in k.5 kg Adjusted body weight in Kg: [place] body weight in Kg: Obesity Dosing Indication % IBW: Serum Creatinine - Last 168 Hours 08/02/21 08/02/21 08/02/21 13:57 18:04 21:46 Creatinine 0.70 0.65 0.63 08/03/21 08/03/21 08/03/21 00:43 04:22 05:54 Creatinine 0.64 0.59 0.58 Estimated CrCl and GFR - Last 168 Hours 08/02/21 08/02/21 08/02/21 13:57 18:04 21:46 Estim Creat Clear Calc 146.5 157.8 162.8 Estimated GFR > 60 > 60 > 60 08/03/21 08/03/21 08/03/21 00:43 04:22 05:54 Estim Creat Clear Calc 167.6 181.8 185.0 Estimated GFR > 60 > 60 > 60 Vancomycin Loading Dose: 1500 Current Vancomycin Dosing Regimen:1250 Q12H Vancomycin Monitoring using AUC goal of 400 - 600 range with trough as surrogate marker: AUC 459, TROUGH 14.2 Date and Time for next Vancomycin Level to be drawn: 08/04 @0900 Pharmacist Comments on Vancomycin Plan: Vancomycin dosing will take advantage of [employer] as a clinical decision support tool that uses Bayesian modeling to calculate individual patient's pharmacokinetic parameters and forecast the patient's drug concentration time course with the target goal AUC 24 range of 400 - 600 mg/L/hr.
[2021-08-03 08:58] LABS: Estimated Average Glucose 137 mg/dL; Hemoglobin A1c % 6.4 %
[2021-08-03] MEDS: cloNIDine HCL 0.1 MG TABLET PO ×2 (09:06→21:43)
[2021-08-03] MEDS: Loratadine 10 MG TABLET PO (09:07)
[2021-08-03] MEDS: Montelukast Sodium 10 MG TABLET PO (09:07)
[2021-08-03] MEDS: Magnesium Oxide 400 MG TABLET PO (09:07)
[2021-08-03] MEDS: Cyclobenzaprine HCl 10 MG TABLET PO ×2 (09:07→21:42)
[2021-08-03] MEDS: Metoprolol Tartrate 25 MG TABLET PO ×2 (09:07→21:42)
[2021-08-03] MEDS: Omeprazole 40 MG CAPSULE.DR PO (09:07)
[2021-08-03] MEDS: Gabapentin 600 MG TABLET PO ×4 (09:07→21:44)
[2021-08-03] MEDS: clomiPRAMINE HCl 25 MG CAPSULE 150 MG PO (09:07)
[2021-08-03] MEDS: Famotidine 20 MG TABLET 40 MG PO (09:07)
[2021-08-03] MEDS: Diclofenac Sodium Delayed Rel 75 MG TABLET.DR PO ×2 (09:08→21:41)
[2021-08-03] MEDS: Benztropine Mesylate 0.5 MG TABLET PO (09:08)
[2021-08-03 09:10] LABS: Thyroid Stimulating Hormone 1.14 uIU/mL (0.32-4.0)
--- NOTE | 2021-08-03 09:21 | P.CDIC_ITS ---
CDI Concurrent Query Documentation Clarification: PHYSICIAN'S DOCUMENTATION REQUEST Date of Query: 08/03/21921 Patient Name: Karina Coffey Admit Date: 08/02/21 Dear Doctor, A review of the medical record indicates additional documentation may be needed. Please review below and update the documentation accordingly. Clinical Indicators: Risk Factors/Clinical Indicators/Treatments Arrived with ulcer left foot base, looked infected. LA 4.0 Temp 100.6 RR 25 HR 124 IV Vancomycin, Zosyn, IV fluids. PN: Lactic acidosis most likely 2nd to acute infection. Based on the above, could you clarify in the Progress Notes the appropriate diagnosis, if significant, that supports the above abnormalities and additional evaluation, monitoring, and/or treatment rendered: Sepsis due to left foot ulcer/cellulitis Cellulitis * Labs indicate a diagnosis of: * Other (please specify) * Unable to determine Use of terms such as suspected, likely, concern for, or probable (associated with a specific diagnosis that is being evaluated, monitored, or treated as if it exists) are acceptable and can be coded in the inpatient setting, when documented at the time of discharge. Thank you, Rosalie Mota CCS, CDIS Extension: [phone] Please use your independent medical judgment in providing your response. THIS QUERY IS PART OF THE PERMANENT MEDICAL RECORD
[2021-08-03 10:04] LABS: Iron 15 mcg/dL (30-160); Percent Iron Saturation 7 % (15-50); Total Iron Binding Capacity 230 mcg/dL (228-428); Unsaturated Iron Binding 215 ug/dL
[2021-08-03 10:23] LABS: Ferritin 341 ng/mL (10-122)
[2021-08-03 11:05] LABS: Glucose, Whole Blood 177 mg/dL (60-115)
--- NOTE | 2021-08-03 11:19 | MHC.CM.PN ---
met with pt who lives with her mother and has [facility] for wound care she has her own transportation home by her sister who lives nearby
[2021-08-03 13:30] LABS: Anion Gap 12 (12-20); Blood Urea Nitrogen 4 mg/dL (9-16); Calcium 8.5 mg/dL (8.4-10.2); Carbon Dioxide 21 mmol/L (22-29); Chloride 99 mmol/L (96-108); Creatinine Clr Calc Pharmacy 170.3; Estimated Glomerular Filt Rate > 60; Glucose Random 145 mg/dL (60-115); Potassium 3.9 mmol/L (3.3-5.1); Sodium 128 mmol/L (135-145)
[2021-08-03] MEDS: Cholestyramine (With Sugar) 4 GM POWD.PACK PO ×2 (13:32→21:45)
[2021-08-03] MEDS: HaloperidoL 5 MG TABLET 7.5 MG PO (13:51)
[2021-08-03] MEDS: vancomycin HCL 1,250 MG in 0.9 % Sodium Chloride 250 ML 166.67 MG IV ×2 (13:52→22:24)
--- NOTE | 2021-08-03 14:12 | CONS_ITS ---
DATE OF SERVICE: 08/03/2021 REASON FOR CONSULTATION: I was asked to see the patient to assist in evaluation and management of the patient's hyponatremia with serum sodium of 125 yesterday afternoon when she was admitted to the hospital. Actually went to 131 by midnight and this morning is down to 128. She does have 2 pitchers of water at her bedside, says that she drank lot of fluids and she does routinely. I did review her labs in [facility] EHR and I do not see any severe hyponatremia and low solute is 134 back in 2019 and 129 in January of this year (as isolated low serum sodium). Her urine specific gravity on admission was 1.005. I do not see any prior urine studies. There is no urine osms or urine sodium back yet. HISTORY OF PRESENT ILLNESS: In summary, the patient is a 31-year-old with an extensive past medical history including diabetes, depression, anxiety, chronic pain, hypothyroidism, restless legs syndrome, who came to the hospital complaining that she felt febrile and was feeling unwell and some muscle spasms. In the admitting notes, it says that she was crying out, very upset, having pain all over body. This morning, she again is complaining of pain all over and has severe headaches. Says she has migraines. This is an active migraine. She does admit to drinking lot of fluids routinely. PAST MEDICAL HISTORY: Noted and includes diabetes, chronic pain, avascular necrosis, anxiety, depression, restless legs syndrome. As mentioned, she has had episodes of hyponatremia in the past in January of this year. Sodium was 129. MEDICATIONS ON ADMISSION: Include Catapres, diclofenac, Lexapro, Pepcid, gabapentin 600 four times a day, Haldol, Synthroid, magnesium, Seroquel, and host of other medications for her psych issues. ALLERGIES: SHE HAS MULTIPLE ALLERGIES LISTED IN THE EHR. SOCIAL HISTORY: She is a nondrinker and nonsmoker. Denies illicit drug use. FAMILY HISTORY: Father had non-Hodgkin's lymphoma. REVIEW OF SYSTEMS: As noted above. PHYSICAL EXAMINATION: VITAL SIGNS: Blood pressure 108/55 with heart rate in the 90s. She has temperature of 100.3. HEENT: Head is atraumatic, normocephalic. Mucous membranes are moist NECK: Supple. LUNGS: Breath sounds bilaterally. CARDIAC: Regular rate and rhythm. ABDOMEN: Obese, soft, nontender. EXTREMITIES: Shows no edema. LABORATORY DATA: From this morning shows sodium 128, potassium 3.7, chloride 101, bicarb 18, anion gap 13, BUN 4, creatinine 0.58, blood sugar 142, calcium 8.4, iron saturation 7%. TSH of 1.14. CPK was 38. As mentioned on admission, her serum sodium was 125 and had gone up to 131 at midnight last night. Previous serum sodiums were as low as 129 back in January. Urine specific gravity was less than 1.005. Hemoglobin 9.8, hematocrit 28.6, white blood cell count 8.7, platelet count 139. IMPRESSION: A 31-year-old admitted with musculoskeletal pains, severe headache, severe hyponatremia (serum sodium 125), and history of marked fluid intake as routine. Euvolemic hyponatremia. The patient's clinical presentation suggests that she has excessive p.o. fluid intake as cause for hyponatremia. This would be supported by the urine specific gravity of less than 1.005, suggesting it is very dilute. We need urine osms to help document this. She may have low solute intake as her BUN is quite low and low solute intake can contribute to development of hyponatremia. Additionally, she is on multiple medications that can be associated with inappropriate ADH release as well as pain and nauseousness can also be drivers of inappropriate ADH release. Hypothyroidism has been ruled out. We still need to rule out adrenal insufficiency. SUGGESTIONS: At this time include enforcing a fluid restriction of 1200 to 1500 cc per 24 hours. Monitor serum sodium. We checked urine osms, urine sodium, and serum osms. We will check an a.m. cortisol level. If her serum sodium does not continue to increase, then we would give her urea as I suspect increased solute load from urea would help correct her hyponatremia. We will follow the patient closely with the team. MD DOM Rock/AFSHAN / [id number]
[2021-08-03 16:13] LABS: Glucose, Whole Blood 144 mg/dL (60-115)
[2021-08-03 16:27] LABS: Anion Gap 12 (12-20); Blood Urea Nitrogen 4 mg/dL (9-16); Calcium 8.3 mg/dL (8.4-10.2); Carbon Dioxide 21 mmol/L (22-29); Chloride 103 mmol/L (96-108); Creatinine Clr Calc Pharmacy 178.8; Estimated Glomerular Filt Rate > 60; Glucose Random 135 mg/dL (60-115); Potassium 3.8 mmol/L (3.3-5.1); Sodium 132 mmol/L (135-145)
[2021-08-03 16:28] LABS: Creatinine Urine 9.67 mg/dL; Sodium Urine Random < 20.0 mmol/L
[2021-08-03 16:55] LABS: Osmolality Urine 70 mosm/kg (373-1093)
--- NOTE | 2021-08-03 17:06 | HO.PM.IMPN ---
Subjective Subjective Date of Service: 08/03/21 Interval History: Generalized pain + muscle aches MRI negative for osteomyelitis Review of Systems Review of Systems: Yes all other systems are reviewed and are negative Physical Exam Vital Signs: Vital Signs: Last Vital Signs Temp 97 F 08/03/21 15:41 Pulse 92 08/03/21 15:41 Resp 16 08/03/21 15:41 BP 106/68 08/03/21 15:41 Pulse Ox 96 08/03/21 15:41 BMI result Body Mass Index 38.3 Gen: in no acute distress HEENT: sclera anicteric, moist mucus membranes Neck: supple Lungs: clear to auscultation bilaterally Heart: regular rate and rhythm, no murmurs Abd: soft, non-tender, non-distended Ext: no edema Skin: mild erythema and warmth of LLE from knee to L foot, clean-based ulcer base of L 5th MTP joint Neuro: alert and oriented x3, no focal findings Psych: appropriate affect Objective Data Active Medications Acetaminophen (Acetaminophen Supp 650 Mg Supp.Rect) 650 mg [place] Q6H PRN PRN Reason: Pain, Mild (Pain Scale 1-3) Acetaminophen (Acetaminophen 325 Mg Tablet) 325 mg PO QID PRN PRN Reason: Pain, Moderate (Pain Scale 4-6 Last Admin: 08/03/21 03:39 Dose: 325 mg Documented by: PINEDA Acetaminophen/Butalbital/Caffeine (Butalb/Acetamin/Caff 50/325/40 Tablet) 1 tab PO BID PRN PRN Reason: Headache Last Admin: 08/03/21 10:32 Dose: 1 tab Documented by: LALO Benztropine Mesylate (Benztropine Mesylate 0.5 Mg Tablet) 0.5 mg PO DAILY [facility] Last Admin: 08/03/21 09:08 Dose: 0.5 mg Documented by: LALO Cholestyramine Resin (Cholestyramine (With Sugar) 4 Gm Powd.Pack) 4 gm PO BID [facility] Last Admin: 08/03/21 13:32 Dose: 4 gm Documented by: LALO Clomipramine HCl (Clomipramine Hcl 25 Mg Capsule) 150 mg PO DAILY [facility] Last Admin: 08/03/21 09:07 Dose: 150 mg Documented by: LALO Clonidine HCl (Clonidine Hcl 0.1 Mg Tablet) 0.1 mg PO BID [facility]; Protocol Last Admin: 08/03/21 09:06 Dose: 0.1 mg Documented by: LALO Cyclobenzaprine HCl (Cyclobenzaprine Hcl 10 Mg Tablet) 10 mg PO BID [facility] Last Admin: 08/03/21 09:07 Dose: 10 mg Documented by: LALO Dextrose (Dextrose 50 % 25 Gm/50 Ml Vial) 25 gm IVPUSH Q15M PRN; Protocol PRN Reason: per Hypoglycemia Standing Ord. Diclofenac Sodium (Diclofenac Sodium Delayed Rel 75 Mg Tablet.Dr) 75 mg PO BID [facility] Last Admin: 08/03/21 09:08 Dose: 75 mg Documented by: LALO Docusate Sodium (Docusate Sodium 100 Mg Capsule) 100 mg PO DAILY PRN PRN Reason: Constipation Enoxaparin Sodium (Enoxaparin Sodium 40 Mg/0.4 Ml Syringe) 40 mg SUBCUT Q24H [facility] Last Admin: 08/02/21 22:01 Dose: 40 mg Documented by: SARAH Famotidine (Famotidine 20 Mg Tablet) 40 mg PO DAILY [facility] Last Admin: 08/03/21 09:07 Dose: 40 mg Documented by: LALO Fluticasone Propionate (Fluticasone Propionate Nasal 16 Gm [place]) 1 spray NOSTRIL-B DAILY PRN PRN Reason: Allergic Symptoms Gabapentin (Gabapentin 600 Mg Tablet) 600 mg PO QID [facility] Last Admin: 08/03/21 13:51 Dose: 600 mg Documented by: LALO Glucose (Glucose Gel 15 Gm Gel..Gram.) 15 gm PO Q15M PRN; Protocol PRN Reason: per Hypoglycemia Standing Ord. Haloperidol (Haloperidol 5 Mg Tablet) 7.5 mg PO DAILY [facility] Last Admin: 08/03/21 13:51 Dose: 7.5 mg Documented by: LALO Piperacillin Sod/Tazobactam (Sod 3.375 gm/ Sodium Chloride) 50 mls @ 100 mls/hr IV Q6H [facility] Last Infusion: 08/03/21 16:42 Dose: 0 mls/hr Documented by: LALO Vancomycin HCl 1,250 mg/ (Sodium Chloride) 250 mls @ 166.667 mls/hr IV Q12H [facility] Last Infusion: 08/03/21 15:31 Dose: 0 mls/hr Documented by: LALO Insulin Human Lispro (Insulin Lispro 100 Unit/Ml 3 Ml Vial) 0 unit SUBCUT QIDACHS [facility]; Protocol Last Admin: 08/03/21 16:42 Dose: Not Given Documented by: LALO Non-Admin Reason: No Insulin Coverage Levothyroxine Sodium (Levothyroxine Sodium 175 Mcg Tablet) 175 mcg PO DAILY@0630 [facility] Last Admin: 08/03/21 06:06 Dose: 175 mcg Documented by: PINEDA Loratadine (Loratadine 10 Mg Tablet) 10 mg PO DAILY [facility] Last Admin: 08/03/21 09:07 Dose: 10 mg Documented by: LALO Lorazepam (Lorazepam 1 Mg Tablet) 1 mg PO QID PRN PRN Reason: Anxiety Last Admin: 08/03/21 00:32 Dose: 1 mg Documented by: PINEDA Magnesium Oxide (Magnesium Oxide 400 Mg Tablet) 400 mg PO DAILY [facility] Last Admin: 08/03/21 09:07 Dose: 400 mg Documented by: LALO Melatonin (Melatonin 3 Mg Tablet) 9 mg PO BEDTIME PRN PRN Reason: Insomnia Last Admin: 08/03/21 00:32 Dose: 9 mg Documented by: PINEDA Metoprolol Tartrate (Metoprolol Tartrate 25 Mg Tablet) 25 mg PO BID [facility]; Protocol Last Admin: 08/03/21 09:07 Dose: 25 mg Documented by: LALO Montelukast Sodium (Montelukast Sodium 10 Mg Tablet) 10 mg PO DAILY [facility] Last Admin: 08/03/21 09:07 Dose: 10 mg Documented by: LALO Omeprazole (Omeprazole 40 Mg Capsule.Dr) 40 mg PO DAILY [facility] Last Admin: 08/03/21 09:07 Dose: 40 mg Documented by: LALO Ondansetron HCl (Ondansetron Hcl 4 Mg/2 Ml Vial) 4 mg IVPUSH Q8H PRN PRN Reason: Nausea and Vomiting Last Admin: 08/02/21 21:45 Dose: 4 mg Documented by: SARAH Oxycodone HCl (Oxycodone Hcl Immed Release 5 Mg Tablet) 10 mg PO QID PRN PRN Reason: Pain, Moderate (Pain Scale 4-6 Last Admin: 08/03/21 06:06 Dose: 10 mg Documented by: PINEDA Pharmacy Consult (Consult Rx Perform Med Rec) 1 each MISCELLANE ONCE PRN PRN Reason: Consult order Pharmacy Consult (Consult Rx Vancomycin Dosing) 1 each MISCELLANE DAILY PRN PRN Reason: Consult order Ropinirole HCl (Ropinirole Hcl 0.5 Mg Tablet) 0.5 mg PO BEDTIME [facility] Last Admin: 08/02/21 21:57 Dose: 0.5 mg Documented by: SARAH Sodium Chloride (0.9 % Sodium Chloride Flush 3 Ml Syringe) 3 ml IVFLUSH QSHIFT [facility] Last Admin: 08/03/21 13:53 Dose: Not Given Documented by: LALO Non-Admin Reason: IV Running Labs CBC & Chem 7: 08/03/21 04:22 08/03/21 15:42 Labs: Laboratory Results - last 24 hr 08/02/21 08/02/21 08/02/21 13:57 18:04 18:07 MCV MCH MCHC RDW Plt Count MPV Immature Gran % (Auto) Neut % (Auto) Lymph % (Auto) Wilkinson % (Auto) Eos % (Auto) Baso % (Auto) Lymph # (Auto) Wilkinson # (Auto) Eos # (Auto) Baso # (Auto) Abs Immat Gran (auto) Absolute Neuts (auto) Absolute Nucleated RBC Nucleated RBC % (auto) ESR 16 Anion Gap 17 Estim Creat Clear Calc 157.8 Estimated GFR > 60 POC Glucose 140 H Random Glucose 150 H Estimat Average Glucose Hemoglobin A1c % Lactic Acid Lactic Acid Fup @ 2Hr Lactic Acid Fup @ 4Hr Uric Acid Calcium 8.8 Iron TIBC % Saturation Unsat Iron Binding Ferritin Total Creatine Kinase C-Reactive Protein 21.23 H TSH Urine Osmolality Ur Random Sodium Urine Creatinine 08/02/21 08/02/21 08/02/21 21:01 21:46 22:12 MCV MCH MCHC RDW Plt Count MPV Immature Gran % (Auto) Neut % (Auto) Lymph % (Auto) Wilkinson % (Auto) Eos % (Auto) Baso % (Auto) Lymph # (Auto) Wilkinson # (Auto) Eos # (Auto) Baso # (Auto) Abs Immat Gran (auto) Absolute Neuts (auto) Absolute Nucleated RBC Nucleated RBC % (auto) ESR Anion Gap 17 Estim Creat Clear Calc 162.8 Estimated GFR > 60 POC Glucose 167 H Random Glucose 184 H Estimat Average Glucose Hemoglobin A1c % Lactic Acid 4.0 H* Lactic Acid Fup @ 2Hr Lactic Acid Fup @ 4Hr Uric Acid Calcium 8.4 Iron TIBC % Saturation Unsat Iron Binding Ferritin Total Creatine Kinase C-Reactive Protein TSH Urine Osmolality Ur Random Sodium Urine Creatinine 08/02/21 08/03/21 08/03/21 23:29 00:43 01:48 MCV MCH MCHC RDW Plt Count MPV Immature Gran % (Auto) Neut % (Auto) Lymph % (Auto) Wilkinson % (Auto) Eos % (Auto) Baso % (Auto) Lymph # (Auto) Wilkinson # (Auto) Eos # (Auto) Baso # (Auto) Abs Immat Gran (auto) Absolute Neuts (auto) Absolute Nucleated RBC Nucleated RBC % (auto) ESR Anion Gap 15 Estim Creat Clear Calc 167.6 Estimated GFR > 60 POC Glucose Random Glucose 159 H Estimat Average Glucose Hemoglobin A1c % Lactic Acid Lactic Acid Fup @ 2Hr 5.3 H* Lactic Acid Fup @ 4Hr 4.1 H* Uric Acid Calcium 8.6 Iron TIBC % Saturation Unsat Iron Binding Ferritin Total Creatine Kinase C-Reactive Protein TSH Urine Osmolality Ur Random Sodium Urine Creatinine 08/03/21 08/03/21 08/03/21 04:22 04:22 04:22 MCV 79.4 L MCH 27.2 MCHC 34.3 RDW 13.8 Plt Count 139 L MPV 8.9 L Immature Gran % (Auto) 1.5 H Neut % (Auto) 88.7 H Lymph % (Auto) 6.8 L Wilkinson % (Auto) 2.8 Eos % (Auto) 0.1 Baso % (Auto) 0.1 Lymph # (Auto) 0.6 L Wilkinson # (Auto) 0.2 Eos # (Auto) 0.0 Baso # (Auto) 0.0 Abs Immat Gran (auto) 0.13 H Absolute Neuts (auto) 7.7 Absolute Nucleated RBC 0.000 Nucleated RBC % (auto) 0.0 ESR Anion Gap 14 Estim Creat Clear Calc 181.8 Estimated GFR > 60 POC Glucose Random Glucose 177 H Estimat Average Glucose 137 Hemoglobin A1c % 6.4 Lactic Acid Lactic Acid Fup @ 2Hr Lactic Acid Fup @ 4Hr Uric Acid Calcium 8.1 L Iron TIBC % Saturation Unsat Iron Binding Ferritin Total Creatine Kinase C-Reactive Protein TSH Urine Osmolality Ur Random Sodium Urine Creatinine 08/03/21 08/03/21 08/03/21 05:54 07:27 10:59 MCV MCH MCHC RDW Plt Count MPV Immature Gran % (Auto) Neut % (Auto) Lymph % (Auto) Wilkinson % (Auto) Eos % (Auto) Baso % (Auto) Lymph # (Auto) Wilkinson # (Auto) Eos # (Auto) Baso # (Auto) Abs Immat Gran (auto) Absolute Neuts (auto) Absolute Nucleated RBC Nucleated RBC % (auto) ESR Anion Gap 13 Estim Creat Clear Calc 185.0 Estimated GFR > 60 POC Glucose 136 H 177 H Random Glucose 142 H Estimat Average Glucose Hemoglobin A1c % Lactic Acid Lactic Acid Fup @ 2Hr Lactic Acid Fup @ 4Hr Uric Acid 4.0 Calcium 8.4 Iron 15 L TIBC 230 % Saturation 7 L Unsat Iron Binding 215 Ferritin 341 H Total Creatine Kinase 38 C-Reactive Protein TSH 1.14 Urine Osmolality Ur Random Sodium Urine Creatinine 08/03/21 08/03/21 08/03/21 12:58 15:42 16:01 MCV MCH MCHC RDW Plt Count MPV Immature Gran % (Auto) Neut % (Auto) Lymph % (Auto) Wilkinson % (Auto) Eos % (Auto) Baso % (Auto) Lymph # (Auto) Wilkinson # (Auto) Eos # (Auto) Baso # (Auto) Abs Immat Gran (auto) Absolute Neuts (auto) Absolute Nucleated RBC Nucleated RBC % (auto) ESR Anion Gap 12 12 Estim Creat Clear Calc 170.3 178.8 Estimated GFR > 60 > 60 POC Glucose Random Glucose 145 H 135 H Estimat Average Glucose Hemoglobin A1c % Lactic Acid Lactic Acid Fup @ 2Hr Lactic Acid Fup @ 4Hr Uric Acid Calcium 8.5 8.3 L Iron TIBC % Saturation Unsat Iron Binding Ferritin Total Creatine Kinase C-Reactive Protein TSH Urine Osmolality 70 L Ur Random Sodium Urine Creatinine 08/03/21 08/03/21 16:01 16:10 MCV MCH MCHC RDW Plt Count MPV Immature Gran % (Auto) Neut % (Auto) Lymph % (Auto) Wilkinson % (Auto) Eos % (Auto) Baso % (Auto) Lymph # (Auto) Wilkinson # (Auto) Eos # (Auto) Baso # (Auto) Abs Immat Gran (auto) Absolute Neuts (auto) Absolute Nucleated RBC Nucleated RBC % (auto) ESR Anion Gap Estim Creat Clear Calc Estimated GFR POC Glucose 144 H Random Glucose Estimat Average Glucose Hemoglobin A1c % Lactic Acid Lactic Acid Fup @ 2Hr Lactic Acid Fup @ 4Hr Uric Acid Calcium Iron TIBC % Saturation Unsat Iron Binding Ferritin Total Creatine Kinase C-Reactive Protein TSH Urine Osmolality Ur Random Sodium < 20.0 Urine Creatinine 9.67 Assessment and Plan (1) Cellulitis: Status: Acute (2) Lactic acidosis: Status: Acute (3) Acute hyponatremia: Status: Acute Assessment and Plan: hospital d#2 31yo F with hx DM2, GERD, depression, anxiety, chronic pain, RLS, hypothyroidism presenting with fever + myalgias admitted for hyponatremia, sepsis from cellulitis/foot ulcer # hyponatremia, euvolemic - Nephrology consulted, suspect excess PO fluid intake gicen dilute urine. also possible SIADH due to psychiatric medications. fluid restriction to 1200 mL/d. recheck BMP in am and will also check cortisol. may require urea. # sepsis [tachypnea, tachycardia] due to cellulitis/L 5th MTP ulcer - MRI ruled out osteomyelitis - ID consultation - vanco + pip/noah d#2, BCx pending # lactic acidosis - unclear cause- ?sepsis # DM2, A1c 6.4 - correction-dose lispro # mood disorder - continue benztropine, clomipramine, clonidine, gabapentin, haloperidol, prn lorazepam # RLS - continue ropinirole # hypothyroidism - continue LT4; TSH therapeutic # VTE ppx - LMWH Quality Stroke Does the patient have a stroke diagnosis?: No VTE Prior VTE?: No VTE Risk Level:: Medical - moderate - high VTE Device Contraindication: Treatment Not Indicated VTE Drug Contraindication: N/A - Med Ordered
[2021-08-03 20:36] LABS: Glucose, Whole Blood 154 mg/dL (60-115)
[2021-08-03] MEDS: rOPINIRole HCL 0.5 MG TABLET PO (21:42)
[2021-08-03] MEDS: Enoxaparin Sodium 40 MG/0.4 ML SYRINGE SUBCUT (21:44)
[2021-08-04] VITALS (11 sets, daily range): BP systolic 96–138; BP diastolic 60–84; PULSE 82–102; RESP 15–20; TEMP 36.6–38.4; O2SAT 95–99
[2021-08-04] MEDS: Piperacillin Sodium/Tazobactam 3.375 GM in 0.9 % Sodium Chloride 50 ML IV ×4 (03:56→21:28)
[2021-08-04] MEDS: Levothyroxine Sodium 175 MCG TABLET PO (06:18)
[2021-08-04 07:17] LABS: Glucose, Whole Blood 117 mg/dL (60-115)
[2021-08-04 07:30] LABS: Hematocrit 33.4 % (37.0-47.0); Mean Corpuscular HGB Conc 32.9 g/dl (31.0-35.0); Mean Corpuscular Hemoglobin 26.8 pg (27.0-33.0); Mean Corpuscular Volume 81.5 fL (80.0-98.0); Mean Platelet Volume 9.2 fL (9.4-12.3); Platelet Count 168 X10*3/uL (160-400); Red Cell Distribution Width 14.2 % (11.0-16.0)
[2021-08-04 07:54] LABS: Anion Gap 15 (12-20); Blood Urea Nitrogen 5 mg/dL (9-16); Calcium 8.6 mg/dL (8.4-10.2); Carbon Dioxide 22 mmol/L (22-29); Chloride 100 mmol/L (96-108); Creatinine Clr Calc Pharmacy 144.9; Estimated Glomerular Filt Rate > 60; Glucose Random 114 mg/dL (60-115); Potassium 3.5 mmol/L (3.3-5.1); Sodium 133 mmol/L (135-145)
--- NOTE | 2021-08-04 08:18 | PHA.PROG ---
Admission Date/Time: August 02, 2021 21:18 Indication: SKIN AND SOFT TISSUE Weight in k.5 kg Adjusted body weight in Kg: [place] body weight in Kg: Obesity Dosing Indication % IBW: Serum Creatinine - Last 168 Hours 08/02/21 08/02/21 08/02/21 13:57 18:04 21:46 Creatinine 0.70 0.65 0.63 08/03/21 08/03/21 08/03/21 00:43 04:22 05:54 Creatinine 0.64 0.59 0.58 08/03/21 08/03/21 08/04/21 12:58 15:42 06:47 Creatinine 0.63 0.60 0.74 Estimated CrCl and GFR - Last 168 Hours 08/02/21 08/02/21 08/02/21 13:57 18:04 21:46 Estim Creat Clear Calc 146.5 157.8 162.8 Estimated GFR > 60 > 60 > 60 08/03/21 08/03/21 08/03/21 00:43 04:22 05:54 Estim Creat Clear Calc 167.6 181.8 185.0 Estimated GFR > 60 > 60 > 60 08/03/21 08/03/21 08/04/21 12:58 15:42 06:47 Estim Creat Clear Calc 170.3 178.8 144.9 Estimated GFR > 60 > 60 > 60 Vancomycin Loading Dose: 1500 MG Current Vancomycin Dosing Regimen: 1250 MG Q12H Vancomycin Monitoring using AUC goal of 400 - 600 range with trough as surrogate marker: Date and Time for next Vancomycin Level to be drawn: 08/05 @ 2100 The patients trough came back at 11.0 this morning on a regimen of 1250 mg q12h. The AUC is predicted at 397 which is under goal. I increased the patients regimen to 1500 mg q12h which will result in an estimated AUC of 475 and a trough of 14.3. We will continue to monitor the renal function. Vancomycin Trough 11.0 mcg/mL (10.0-20.0) 08/04/21 06:47 Pharmacist Comments on Vancomycin Plan: Vancomycin dosing will take advantage of [employer] as a clinical decision support tool that uses Bayesian modeling to calculate individual patient's pharmacokinetic parameters and forecast the patient's drug concentration time course with the target goal AUC 24 range of 400 - 600 mg/L/hr.
[2021-08-04 09:07] LABS: Cortisol Random 26.7 ug/dL
--- NOTE | 2021-08-04 09:52 | PM.PNNEP ---
Subjective Subjective Date of Service: 08/04/21 Interval history: seen and examined discussed with medical attending complains of pain Physical Exam Vital Signs: Vital Signs: Last Vital Signs Temp 98.3 F 08/04/21 07:07 Pulse 97 08/04/21 07:07 Resp 20 08/04/21 07:07 BP 132/80 08/04/21 07:07 Pulse Ox 99 08/04/21 07:07 BMI result Body Mass Index 38.3 Const: General: alert and awake HENMT: Head: Yes normocephalic and Yes atraumatic Neck: Neck: Yes supple Resp: Auscultation: clear to auscultation bilaterally Cardio: Heart sounds: S1 normal heart sound present and S2 normal heart sound present GI: Palpation (GI): Soft to palpation and nontender Extrem: General: No pedal edema Objective Data Labs CBC & Chem 7: 08/04/21 06:47 08/04/21 06:47 Labs: Laboratory Results - last 24 hr 08/03/21 08/03/21 08/03/21 05:54 10:59 12:58 WBC RBC Hgb Hct MCV MCH MCHC RDW Plt Count MPV Absolute Nucleated RBC Nucleated RBC % (auto) Sodium 128 L Potassium 3.9 Chloride 99 Carbon Dioxide 21 L Anion Gap 12 BUN 4 L Creatinine 0.63 Estim Creat Clear Calc 170.3 Estimated GFR > 60 POC Glucose 177 H Random Glucose 145 H Uric Acid 4.0 Calcium 8.5 Iron 15 L TIBC 230 % Saturation 7 L Unsat Iron Binding 215 Ferritin 341 H Random Cortisol Urine Osmolality Ur Random Sodium Urine Creatinine Vancomycin Trough 08/03/21 08/03/21 08/03/21 15:42 16:01 16:01 WBC RBC Hgb Hct MCV MCH MCHC RDW Plt Count MPV Absolute Nucleated RBC Nucleated RBC % (auto) Sodium 132 L Potassium 3.8 Chloride 103 Carbon Dioxide 21 L Anion Gap 12 BUN 4 L Creatinine 0.60 Estim Creat Clear Calc 178.8 Estimated GFR > 60 POC Glucose Random Glucose 135 H Uric Acid Calcium 8.3 L Iron TIBC % Saturation Unsat Iron Binding Ferritin Random Cortisol Urine Osmolality 70 L Ur Random Sodium < 20.0 Urine Creatinine 9.67 Vancomycin Trough 08/03/21 08/03/21 08/04/21 16:10 20:21 06:47 WBC 6.0 RBC 4.10 L Hgb 11.0 L Hct 33.4 L MCV 81.5 MCH 26.8 L MCHC 32.9 RDW 14.2 Plt Count 168 MPV 9.2 L Absolute Nucleated RBC 0.000 Nucleated RBC % (auto) 0.0 Sodium Potassium Chloride Carbon Dioxide Anion Gap BUN Creatinine Estim Creat Clear Calc Estimated GFR POC Glucose 144 H 154 H Random Glucose Uric Acid Calcium Iron TIBC % Saturation Unsat Iron Binding Ferritin Random Cortisol Urine Osmolality Ur Random Sodium Urine Creatinine Vancomycin Trough 08/04/21 08/04/21 08/04/21 06:47 06:47 06:47 WBC RBC Hgb Hct MCV MCH MCHC RDW Plt Count MPV Absolute Nucleated RBC Nucleated RBC % (auto) Sodium 133 L Potassium 3.5 Chloride 100 Carbon Dioxide 22 Anion Gap 15 BUN 5 L Creatinine 0.74 Estim Creat Clear Calc 144.9 Estimated GFR > 60 POC Glucose Random Glucose 114 Uric Acid Calcium 8.6 Iron TIBC % Saturation Unsat Iron Binding Ferritin Random Cortisol 26.7 Urine Osmolality Ur Random Sodium Urine Creatinine Vancomycin Trough 11.0 08/04/21 07:06 WBC RBC Hgb Hct MCV MCH MCHC RDW Plt Count MPV Absolute Nucleated RBC Nucleated RBC % (auto) Sodium Potassium Chloride Carbon Dioxide Anion Gap BUN Creatinine Estim Creat Clear Calc Estimated GFR POC Glucose 117 H Random Glucose Uric Acid Calcium Iron TIBC % Saturation Unsat Iron Binding Ferritin Random Cortisol Urine Osmolality Ur Random Sodium Urine Creatinine Vancomycin Trough Microbiology Microbiology Results: Microbiology 08/02/21 21:01 Blood - Venous Blood Culture - Preliminary No growth after 24 hours. 08/02/21 18:52 Blood - Venous Blood Culture - Preliminary No growth after 24 hours. Procedures Date of Service Date of Service: 08/04/21 Assessment & Plan Assessment and plan (1) Hyponatremia: Status: Acute Assessment and Plan: euvolemic hyponatremia low urine osmolality and sodium multifacrtorial: -excessive p.o. fluid intake -poor solute excretion -multiple medications that can be associated with inappropriate ADH release as well as pain REC fluid restriction follow electrolytes Time Spent With Patient Time: Total time spent is greater than 50% in coordination of care (as documented) at patient's floor/unit and/or counseling patient: Progress Note: Quality Stroke Does the patient have a stroke diagnosis?: No
[2021-08-04] MEDS: oxyCODONE HCl Immed Release 5 MG TABLET 10 MG PO (10:04)
[2021-08-04] MEDS: Diclofenac Sodium Delayed Rel 75 MG TABLET.DR PO ×2 (10:04→21:31)
[2021-08-04] MEDS: Famotidine 20 MG TABLET 40 MG PO (10:05)
[2021-08-04] MEDS: HaloperidoL 5 MG TABLET 7.5 MG PO (10:05)
[2021-08-04] MEDS: clomiPRAMINE HCl 25 MG CAPSULE 150 MG PO (10:05)
[2021-08-04] MEDS: Loratadine 10 MG TABLET PO (10:05)
[2021-08-04] MEDS: Cyclobenzaprine HCl 10 MG TABLET PO ×2 (10:06→21:29)
[2021-08-04] MEDS: cloNIDine HCL 0.1 MG TABLET PO ×2 (10:06→21:28)
[2021-08-04] MEDS: Gabapentin 600 MG TABLET PO ×4 (10:06→21:31)
[2021-08-04] MEDS: Montelukast Sodium 10 MG TABLET PO (10:06)
[2021-08-04] MEDS: Magnesium Oxide 400 MG TABLET PO (10:06)
[2021-08-04] MEDS: Ferrous Sulfate 324 MG TABLET.DR PO (10:06)
[2021-08-04] MEDS: Benztropine Mesylate 0.5 MG TABLET PO (10:07)
[2021-08-04] MEDS: Metoprolol Tartrate 25 MG TABLET PO ×2 (10:07→21:31)
[2021-08-04] MEDS: Omeprazole 40 MG CAPSULE.DR PO (10:07)
[2021-08-04] MEDS: 0.9 % Sodium Chloride Flush 3 ML SYRINGE IVFLUSH ×3 (10:07→21:30)
[2021-08-04] MEDS: Butalb/Acetamin/Caff 50/325/40 TABLET 1 TAB PO (10:52)
[2021-08-04 10:58] LABS: Glucose, Whole Blood 127 mg/dL (60-115)
[2021-08-04] MEDS: vancomycin HCL 1,500 MG in 0.9 % Sodium Chloride 500 ML 333.33 MG IV ×2 (11:01→22:09)
--- NOTE | 2021-08-04 12:13 | P.PNIM_ITS ---
Subjective Subjective Date of Service: 08/04/21 Interval History: fever just now LLE redness improved Review of Systems Review of Systems: Yes all other systems are reviewed and are negative Physical Exam Vital Signs: Vital Signs: Last Vital Signs Temp 101.1 F H 08/04/21 11:11 Pulse 102 H 08/04/21 11:11 Resp 20 08/04/21 11:11 BP 130/76 08/04/21 11:11 Pulse Ox 95 08/04/21 11:11 BMI result Body Mass Index 38.3 Gen: in no acute distress HEENT: sclera anicteric, moist mucus membranes Neck: supple Lungs: clear to auscultation bilaterally Heart: regular rate and rhythm, no murmurs Abd: soft, non-tender, non-distended Ext: no edema Skin: mild erythema and warmth of LLE from knee to L foot, no purulence, clean-based ulcer base of L 5th MTP joint Neuro: alert and oriented x3, no focal findings Psych: appropriate affect Objective Data Active Medications Acetaminophen (Acetaminophen Supp 650 Mg Supp.Rect) 650 mg [place] Q6H PRN PRN Reason: Pain, Mild (Pain Scale 1-3) Acetaminophen (Acetaminophen 325 Mg Tablet) 325 mg PO QID PRN PRN Reason: Pain, Moderate (Pain Scale 4-6 Last Admin: 08/03/21 03:39 Dose: 325 mg Documented by: PINEDA Acetaminophen/Butalbital/Caffeine (Butalb/Acetamin/Caff 50/325/40 Tablet) 1 tab PO BID PRN PRN Reason: Headache Last Admin: 08/04/21 10:52 Dose: 1 tab Documented by: DEBRA Benztropine Mesylate (Benztropine Mesylate 0.5 Mg Tablet) 0.5 mg PO DAILY [facility] Last Admin: 08/04/21 10:07 Dose: 0.5 mg Documented by: DEBRA Cholestyramine Resin (Cholestyramine (With Sugar) 4 Gm Powd.Pack) 4 gm PO BID [facility] Last Admin: 08/04/21 10:15 Dose: Not Given Documented by: DEBRA Non-Admin Reason: Patient Refused Clomipramine HCl (Clomipramine Hcl 25 Mg Capsule) 150 mg PO DAILY [facility] Last Admin: 08/04/21 10:05 Dose: 150 mg Documented by: DEBRA Clonidine HCl (Clonidine Hcl 0.1 Mg Tablet) 0.1 mg PO BID [facility]; Protocol Last Admin: 08/04/21 10:06 Dose: 0.1 mg Documented by: DEBRA Cyclobenzaprine HCl (Cyclobenzaprine Hcl 10 Mg Tablet) 10 mg PO BID [facility] Last Admin: 08/04/21 10:06 Dose: 10 mg Documented by: DEBRA Dextrose (Dextrose 50 % 25 Gm/50 Ml Vial) 25 gm IVPUSH Q15M PRN; Protocol PRN Reason: per Hypoglycemia Standing Ord. Diclofenac Sodium (Diclofenac Sodium Delayed Rel 75 Mg Tablet.) 75 mg PO BID [facility] Last Admin: 08/04/21 10:04 Dose: 75 mg Documented by: DEBRA Docusate Sodium (Docusate Sodium 100 Mg Capsule) 100 mg PO DAILY PRN PRN Reason: Constipation Enoxaparin Sodium (Enoxaparin Sodium 40 Mg/0.4 Ml Syringe) 40 mg SUBCUT Q24H [facility] Last Admin: 08/03/21 21:44 Dose: 40 mg Documented by: JESSE Famotidine (Famotidine 20 Mg Tablet) 40 mg PO DAILY [facility] Last Admin: 08/04/21 10:05 Dose: 40 mg Documented by: DEBRA Ferrous Sulfate (Ferrous Sulfate 324 Mg Tablet.) 324 mg PO DAILY [facility] Last Admin: 08/04/21 10:06 Dose: 324 mg Documented by: DEBRA Fluticasone Propionate (Fluticasone Propionate Nasal 16 Gm [place]) 1 spray NOSTRIL-B DAILY PRN PRN Reason: Allergic Symptoms Gabapentin (Gabapentin 600 Mg Tablet) 600 mg PO QID [facility] Last Admin: 08/04/21 10:06 Dose: 600 mg Documented by: DEBRA Glucose (Glucose Gel 15 Gm Gel..Gram.) 15 gm PO Q15M PRN; Protocol PRN Reason: per Hypoglycemia Standing Ord. Haloperidol (Haloperidol 5 Mg Tablet) 7.5 mg PO DAILY [facility] Last Admin: 08/04/21 10:05 Dose: 7.5 mg Documented by: DEBRA Piperacillin Sod/Tazobactam (Sod 3.375 gm/ Sodium Chloride) 50 mls @ 100 mls/hr IV Q6H [facility] Last Infusion: 08/04/21 10:56 Dose: 0 mls/hr Documented by: DEBRA Vancomycin HCl 1,500 mg/ (Sodium Chloride) 500 mls @ 333.333 mls/hr IV Q12H [facility] Last Admin: 08/04/21 11:01 Dose: 333.33 mls/hr Documented by: DEBRA Insulin Human Lispro (Insulin Lispro 100 Unit/Ml 3 Ml Vial) 0 unit SUBCUT QIDACHS [facility]; Protocol Last Admin: 08/04/21 11:44 Dose: Not Given Documented by: DEBRA Non-Admin Reason: No Insulin Coverage Levothyroxine Sodium (Levothyroxine Sodium 175 Mcg Tablet) 175 mcg PO DAILY@0630 [facility] Last Admin: 08/04/21 06:18 Dose: 175 mcg Documented by: JESSE Loratadine (Loratadine 10 Mg Tablet) 10 mg PO DAILY [facility] Last Admin: 08/04/21 10:05 Dose: 10 mg Documented by: DEBRA Lorazepam (Lorazepam 1 Mg Tablet) 1 mg PO QID PRN PRN Reason: Anxiety Last Admin: 08/03/21 23:04 Dose: 1 mg Documented by: JESSE Magnesium Oxide (Magnesium Oxide 400 Mg Tablet) 400 mg PO DAILY [facility] Last Admin: 08/04/21 10:06 Dose: 400 mg Documented by: DEBRA Melatonin (Melatonin 3 Mg Tablet) 9 mg PO BEDTIME PRN PRN Reason: Insomnia Last Admin: 08/03/21 23:03 Dose: 9 mg Documented by: JESSE Metoprolol Tartrate (Metoprolol Tartrate 25 Mg Tablet) 25 mg PO BID [facility]; Protocol Last Admin: 08/04/21 10:07 Dose: 25 mg Documented by: DEBRA Montelukast Sodium (Montelukast Sodium 10 Mg Tablet) 10 mg PO DAILY [facility] Last Admin: 08/04/21 10:06 Dose: 10 mg Documented by: DEBRA Omeprazole (Omeprazole 40 Mg Capsule.Dr) 40 mg PO DAILY [facility] Last Admin: 08/04/21 10:07 Dose: 40 mg Documented by: DEBRA Ondansetron HCl (Ondansetron Hcl 4 Mg/2 Ml Vial) 4 mg IVPUSH Q8H PRN PRN Reason: Nausea and Vomiting Last Admin: 08/02/21 21:45 Dose: 4 mg Documented by: SARAH Oxycodone HCl (Oxycodone Hcl Immed Release 5 Mg Tablet) 10 mg PO QID PRN PRN Reason: Pain, Moderate (Pain Scale 4-6 Last Admin: 08/04/21 10:04 Dose: 10 mg Documented by: DEBRA Pharmacy Consult (Consult Rx Perform Med Rec) 1 each MISCELLANE ONCE PRN PRN Reason: Consult order Pharmacy Consult (Consult Rx Vancomycin Dosing) 1 each MISCELLANE DAILY PRN PRN Reason: Consult order Ropinirole HCl (Ropinirole Hcl 0.5 Mg Tablet) 0.5 mg PO BEDTIME [facility] Last Admin: 08/03/21 21:42 Dose: 0.5 mg Documented by: JESSE Sodium Chloride (0.9 % Sodium Chloride Flush 3 Ml Syringe) 3 ml IVFLUSH QSHIFT [facility] Last Admin: 08/04/21 10:07 Dose: 3 ml Documented by: DEBRA Labs CBC & Chem 7: 08/04/21 06:47 08/04/21 06:47 Labs: Laboratory Results - last 24 hr 08/03/21 08/03/21 08/03/21 12:58 15:42 16:01 MCV MCH MCHC RDW Plt Count MPV Absolute Nucleated RBC Nucleated RBC % (auto) Anion Gap 12 12 Estim Creat Clear Calc 170.3 178.8 Estimated GFR > 60 > 60 POC Glucose Random Glucose 145 H 135 H Calcium 8.5 8.3 L Random Cortisol Urine Osmolality 70 L Ur Random Sodium Urine Creatinine Vancomycin Trough 08/03/21 08/03/21 08/03/21 16:01 16:10 20:21 MCV MCH MCHC RDW Plt Count MPV Absolute Nucleated RBC Nucleated RBC % (auto) Anion Gap Estim Creat Clear Calc Estimated GFR POC Glucose 144 H 154 H Random Glucose Calcium Random Cortisol Urine Osmolality Ur Random Sodium < 20.0 Urine Creatinine 9.67 Vancomycin Trough 08/04/21 08/04/21 08/04/21 06:47 06:47 06:47 MCV 81.5 MCH 26.8 L MCHC 32.9 RDW 14.2 Plt Count 168 MPV 9.2 L Absolute Nucleated RBC 0.000 Nucleated RBC % (auto) 0.0 Anion Gap 15 Estim Creat Clear Calc 144.9 Estimated GFR > 60 POC Glucose Random Glucose 114 Calcium 8.6 Random Cortisol Urine Osmolality Ur Random Sodium Urine Creatinine Vancomycin Trough 11.0 08/04/21 08/04/21 08/04/21 06:47 07:06 10:53 MCV MCH MCHC RDW Plt Count MPV Absolute Nucleated RBC Nucleated RBC % (auto) Anion Gap Estim Creat Clear Calc Estimated GFR POC Glucose 117 H 127 H Random Glucose Calcium Random Cortisol 26.7 Urine Osmolality Ur Random Sodium Urine Creatinine Vancomycin Trough Microbiology Microbiology Results: Microbiology 08/02/21 21:01 Blood Culture - Preliminary Blood - Venous No growth after 24 hours. 08/02/21 18:52 Blood Culture - Preliminary Blood - Venous No growth after 24 hours. Assessment and Plan (1) Cellulitis: Status: Acute (2) Lactic acidosis: Status: Acute (3) Acute hyponatremia: Status: Acute Assessment and Plan: hospital d#3 31yo F with hx DM2, GERD, depression, anxiety, chronic pain, RLS, hypothyroidism presenting with fever + myalgias admitted for hyponatremia, sepsis from cellulitis/foot ulcer # hyponatremia, euvolemic - Nephrology consulted, suspect excess PO fluid intake gicen dilute urine. also possible SIADH due to psychiatric medications. fluid restriction to 1200 mL/d. Na now 133. cortisol pending for completeness' sack # severe sepsis [tachypnea, tachycardia] due to cellulitis/L 5th MTP ulcer - MRI ruled out osteomyelitis - ID consultation pending - vanco + pip/noah d#3, BCx pending # iron deficiency anemia - replete Fe, FOBT pending # DM2, A1c 6.4 - correction-dose lispro # mood disorder - continue benztropine, clomipramine, clonidine, gabapentin, haloperidol, prn lorazepam # RLS - continue ropinirole # hypothyroidism - continue LT4; TSH therapeutic # VTE ppx - LMWH Quality Stroke Does the patient have a stroke diagnosis?: No VTE Prior VTE?: No VTE Risk Level:: Medical - moderate - high VTE Device Contraindication: Treatment Not Indicated VTE Drug Contraindication: N/A - Med Ordered
[2021-08-04 16:17] LABS: Glucose, Whole Blood 116 mg/dL (60-115)
[2021-08-04 20:12] LABS: Glucose, Whole Blood 121 mg/dL (60-115)
[2021-08-04] MEDS: Cholestyramine (With Sugar) 4 GM POWD.PACK PO (21:26)
[2021-08-04] MEDS: rOPINIRole HCL 0.5 MG TABLET PO (21:31)
[2021-08-04] MEDS: Enoxaparin Sodium 40 MG/0.4 ML SYRINGE SUBCUT (21:33)
[2021-08-05] VITALS (10 sets, daily range): BP systolic 100–136; BP diastolic 64–84; PULSE 71–97; RESP 18–20; TEMP 36.3–37.4; O2SAT 93–98; BMI 35.2
[2021-08-05] MEDS: Piperacillin Sodium/Tazobactam 3.375 GM in 0.9 % Sodium Chloride 50 ML IV ×4 (03:21→22:01)
[2021-08-05] MEDS: Levothyroxine Sodium 175 MCG TABLET PO (06:18)
[2021-08-05 07:17] LABS: Glucose, Whole Blood 124 mg/dL (60-115)
[2021-08-05 07:43] LABS: Anion Gap 14 (12-20); Blood Urea Nitrogen 11 mg/dL (9-16); Calcium 8.7 mg/dL (8.4-10.2); Carbon Dioxide 21 mmol/L (22-29); Chloride 106 mmol/L (96-108); Creatinine Clr Calc Pharmacy 57.8; Estimated Glomerular Filt Rate 33; Glucose Random 120 mg/dL (60-115); Potassium 3.7 mmol/L (3.3-5.1); Sodium 137 mmol/L (135-145)
[2021-08-05] MEDS: 0.9 % Sodium Chloride Flush 3 ML SYRINGE IVFLUSH ×2 (09:37→20:26)
[2021-08-05] MEDS: Doxycycline Hyclate 100 MG in 0.9 % Sodium Chloride 250 ML 166.67 MG IV ×2 (09:43→20:19)
[2021-08-05] MEDS: Famotidine 20 MG TABLET 40 MG PO (09:45)
[2021-08-05] MEDS: Gabapentin 600 MG TABLET PO ×4 (09:45→20:16)
[2021-08-05] MEDS: cloNIDine HCL 0.1 MG TABLET PO ×2 (09:45→20:16)
[2021-08-05] MEDS: clomiPRAMINE HCl 25 MG CAPSULE 150 MG PO (09:45)
[2021-08-05] MEDS: Benztropine Mesylate 0.5 MG TABLET PO (09:46)
[2021-08-05] MEDS: Montelukast Sodium 10 MG TABLET PO (09:46)
[2021-08-05] MEDS: Cyclobenzaprine HCl 10 MG TABLET PO ×2 (09:46→20:17)
[2021-08-05] MEDS: Ferrous Sulfate 324 MG TABLET.DR PO (09:46)
[2021-08-05] MEDS: Loratadine 10 MG TABLET PO (09:46)
[2021-08-05] MEDS: HaloperidoL 5 MG TABLET 7.5 MG PO (09:47)
[2021-08-05] MEDS: Magnesium Oxide 400 MG TABLET PO (09:47)
[2021-08-05] MEDS: Metoprolol Tartrate 25 MG TABLET PO ×2 (09:47→20:17)
--- NOTE | 2021-08-05 09:47 | PM.PNNEP ---
Subjective Subjective Date of Service: 08/05/21 Interval history: seen and examined no complaints discussed with medical attending Physical Exam Vital Signs: Vital Signs: Last Vital Signs Temp 98.6 F 08/05/21 07:11 Pulse 84 08/05/21 07:11 Resp 18 08/05/21 07:11 BP 122/77 08/05/21 07:11 Pulse Ox 97 08/05/21 07:11 BMI result Body Mass Index 35.2 Const: General: alert and awake HENMT: Head: Yes normocephalic and Yes atraumatic Neck: Neck: Yes supple Resp: Auscultation: clear to auscultation bilaterally Cardio: Heart sounds: S1 normal heart sound present and S2 normal heart sound present GI: Palpation (GI): Soft to palpation and nontender Extrem: General: No pedal edema Objective Data Labs CBC & Chem 7: 08/04/21 06:47 08/05/21 06:47 Labs: Laboratory Results - last 24 hr 08/04/21 08/04/21 08/04/21 10:53 16:13 20:07 Sodium Potassium Chloride Carbon Dioxide Anion Gap BUN Creatinine Estim Creat Clear Calc Estimated GFR POC Glucose 127 H 116 H 121 H Random Glucose Calcium 08/05/21 08/05/21 06:47 07:12 Sodium 137 Potassium 3.7 Chloride 106 Carbon Dioxide 21 L Anion Gap 14 BUN 11 D Creatinine 1.77 H Estim Creat Clear Calc 57.8 Estimated GFR 33 POC Glucose 124 H Random Glucose 120 H Calcium 8.7 Microbiology Microbiology Results: Microbiology 08/02/21 21:01 Blood - Venous Blood Culture - Preliminary No growth after 48 hours. 08/02/21 18:52 Blood - Venous Blood Culture - Preliminary No growth after 48 hours. Procedures Date of Service Date of Service: 08/05/21 Assessment & Plan Assessment and plan (1) Hyponatremia: Status: Acute (2) NADEEM (acute kidney injury): Status: Acute Assessment and Plan: Scr up and Sna normalized NADEEM due to vancomycin nephrotoxicity? euvolemic hyponatremia low urine osmolality and sodium multifacrtorial: -excessive p.o. fluid intake -poor solute excretion -multiple medications that can be associated with inappropriate ADH release as well as pain REC check random vancomycin level and hold if possible lift fluid restriction follow electrolytes Time Spent With Patient Time: Total time spent is greater than 50% in coordination of care (as documented) at patient's floor/unit and/or counseling patient: Progress Note: Quality Stroke Does the patient have a stroke diagnosis?: No
[2021-08-05] MEDS: Omeprazole 40 MG CAPSULE.DR PO (09:48)
[2021-08-05] MEDS: 0.9 % Sodium Chloride 1,000 ML 125 ML IVCONT ×2 (10:56→17:32)
[2021-08-05 10:59] LABS: Glucose, Whole Blood 125 mg/dL (60-115)
[2021-08-05] MEDS: oxyCODONE HCl Immed Release 5 MG TABLET 10 MG PO ×2 (11:20→17:24)
[2021-08-05 12:00] LABS: Vancomycin Trough 32.3 mcg/mL (10.0-20.0)
--- NOTE | 2021-08-05 13:30 | P.PNIM_ITS ---
Subjective Subjective Date of Service: 08/05/21 Interval History: SCr jumped to 1.7+ Leg infection improved and wants to go home Very thirsty Review of Systems Review of Systems: Yes all other systems are reviewed and are negative Physical Exam Vital Signs: Vital Signs: Last Vital Signs Temp 99.4 F 08/05/21 11:25 Pulse 80 08/05/21 11:25 Resp 18 08/05/21 11:25 BP 112/67 08/05/21 11:25 Pulse Ox 98 08/05/21 11:25 BMI result Body Mass Index 35.2 Gen: in no acute distress HEENT: sclera anicteric, moist mucus membranes Neck: supple Lungs: clear to auscultation bilaterally Heart: regular rate and rhythm, no murmurs Abd: soft, non-tender, non-distended Ext: no edema Skin: erythema and warmth of LLE from knee to L foot improved from yesterday without fluctuant areas, clean-based shallow ulcer at base of L 5th MTP joint Neuro: alert and oriented x3, no focal findings Psych: appropriate affect Objective Data Active Medications Acetaminophen (Acetaminophen Supp 650 Mg Supp.Rect) 650 mg [place] Q6H PRN PRN Reason: Pain, Mild (Pain Scale 1-3) Acetaminophen (Acetaminophen 325 Mg Tablet) 325 mg PO QID PRN PRN Reason: Pain, Moderate (Pain Scale 4-6 Last Admin: 08/03/21 03:39 Dose: 325 mg Documented by: PINEDA Acetaminophen/Butalbital/Caffeine (Butalb/Acetamin/Caff 50/325/40 Tablet) 1 tab PO BID PRN PRN Reason: Headache Last Admin: 08/04/21 10:52 Dose: 1 tab Documented by: DEBRA Benztropine Mesylate (Benztropine Mesylate 0.5 Mg Tablet) 0.5 mg PO DAILY [facility] Last Admin: 08/05/21 09:46 Dose: 0.5 mg Documented by: DEBRA Cholestyramine Resin (Cholestyramine (With Sugar) 4 Gm Powd.Pack) 4 gm PO BID [facility] Last Admin: 08/05/21 09:47 Dose: Not Given Documented by: DEBRA Non-Admin Reason: Patient Refused Clomipramine HCl (Clomipramine Hcl 25 Mg Capsule) 150 mg PO DAILY [facility] Last Admin: 08/05/21 09:45 Dose: 150 mg Documented by: DEBRA Clonidine HCl (Clonidine Hcl 0.1 Mg Tablet) 0.1 mg PO BID [facility]; Protocol Last Admin: 08/05/21 09:45 Dose: 0.1 mg Documented by: DEBRA Cyclobenzaprine HCl (Cyclobenzaprine Hcl 10 Mg Tablet) 10 mg PO BID [facility] Last Admin: 08/05/21 09:46 Dose: 10 mg Documented by: DEBRA Dextrose (Dextrose 50 % 25 Gm/50 Ml Vial) 25 gm IVPUSH Q15M PRN; Protocol PRN Reason: per Hypoglycemia Standing Ord. Docusate Sodium (Docusate Sodium 100 Mg Capsule) 100 mg PO DAILY PRN PRN Reason: Constipation Enoxaparin Sodium (Enoxaparin Sodium 40 Mg/0.4 Ml Syringe) 40 mg SUBCUT Q24H [facility] Last Admin: 08/04/21 21:33 Dose: 40 mg Documented by: JESSE Famotidine (Famotidine 20 Mg Tablet) 40 mg PO DAILY [facility] Last Admin: 08/05/21 09:45 Dose: 40 mg Documented by: DEBRA Ferrous Sulfate (Ferrous Sulfate 324 Mg Tablet.Dr) 324 mg PO DAILY [facility] Last Admin: 08/05/21 09:46 Dose: 324 mg Documented by: DEBRA Fluticasone Propionate (Fluticasone Propionate Nasal 16 Gm [place]) 1 spray NOSTRIL-B DAILY PRN PRN Reason: Allergic Symptoms Gabapentin (Gabapentin 600 Mg Tablet) 600 mg PO QID [facility] Last Admin: 08/05/21 11:20 Dose: 600 mg Documented by: DEBRA Glucose (Glucose Gel 15 Gm Gel..Gram.) 15 gm PO Q15M PRN; Protocol PRN Reason: per Hypoglycemia Standing Ord. Haloperidol (Haloperidol 5 Mg Tablet) 7.5 mg PO DAILY [facility] Last Admin: 08/05/21 09:47 Dose: 7.5 mg Documented by: DEBRA Piperacillin Sod/Tazobactam (Sod 3.375 gm/ Sodium Chloride) 50 mls @ 100 mls/hr IV Q6H [facility] Last Infusion: 08/05/21 10:17 Dose: 0 mls/hr Documented by: DEBRA Doxycycline Hyclate 100 mg/ (Sodium Chloride) 250 mls @ 166.67 mls/hr IV Q12H [facility] Last Infusion: 08/05/21 11:15 Dose: 0 mls/hr Documented by: DEBRA Sodium Chloride (Ns) 1,000 mls @ 125 mls/hr IVCONT .Q8H [facility] Stop: 08/06/21 02:14 Last Admin: 08/05/21 10:56 Dose: 125 mls/hr Documented by: DEBRA Insulin Human Lispro (Insulin Lispro 100 Unit/Ml 3 Ml Vial) 0 unit SUBCUT QIDACHS [facility]; Protocol Last Admin: 08/05/21 11:04 Dose: Not Given Documented by: DEBRA Non-Admin Reason: No Insulin Coverage Levothyroxine Sodium (Levothyroxine Sodium 175 Mcg Tablet) 175 mcg PO DAILY@0630 [facility] Last Admin: 08/05/21 06:18 Dose: 175 mcg Documented by: JESSE Loratadine (Loratadine 10 Mg Tablet) 10 mg PO DAILY [facility] Last Admin: 08/05/21 09:46 Dose: 10 mg Documented by: DEBRA Lorazepam (Lorazepam 1 Mg Tablet) 1 mg PO QID PRN PRN Reason: Anxiety Last Admin: 08/03/21 23:04 Dose: 1 mg Documented by: JESSE Magnesium Oxide (Magnesium Oxide 400 Mg Tablet) 400 mg PO DAILY [facility] Last Admin: 08/05/21 09:47 Dose: 400 mg Documented by: DEBRA Melatonin (Melatonin 3 Mg Tablet) 9 mg PO BEDTIME PRN PRN Reason: Insomnia Last Admin: 08/03/21 23:03 Dose: 9 mg Documented by: JESSE Metoprolol Tartrate (Metoprolol Tartrate 25 Mg Tablet) 25 mg PO BID [facility]; Protocol Last Admin: 08/05/21 09:47 Dose: 25 mg Documented by: DEBRA Montelukast Sodium (Montelukast Sodium 10 Mg Tablet) 10 mg PO DAILY [facility] Last Admin: 08/05/21 09:46 Dose: 10 mg Documented by: DEBRA Omeprazole (Omeprazole 40 Mg Capsule.Dr) 40 mg PO DAILY [facility] Last Admin: 08/05/21 09:48 Dose: 40 mg Documented by: DEBRA Ondansetron HCl (Ondansetron Hcl 4 Mg/2 Ml Vial) 4 mg IVPUSH Q8H PRN PRN Reason: Nausea and Vomiting Last Admin: 08/02/21 21:45 Dose: 4 mg Documented by: SARAH Oxycodone HCl (Oxycodone Hcl Immed Release 5 Mg Tablet) 10 mg PO QID PRN PRN Reason: Pain, Moderate (Pain Scale 4-6 Last Admin: 08/05/21 11:20 Dose: 10 mg Documented by: DEBRA Pharmacy Consult (Consult Rx Perform Med Rec) 1 each MISCELLANE ONCE PRN PRN Reason: Consult order Pharmacy Consult (Consult Rx Vancomycin Dosing) 1 each MISCELLANE DAILY PRN PRN Reason: Consult order Ropinirole HCl (Ropinirole Hcl 0.5 Mg Tablet) 0.5 mg PO BEDTIME [facility] Last Admin: 08/04/21 21:31 Dose: 0.5 mg Documented by: JESSE Sodium Chloride (0.9 % Sodium Chloride Flush 3 Ml Syringe) 3 ml IVFLUSH QSHIFT [facility] Last Admin: 08/05/21 09:37 Dose: 3 ml Documented by: DEBRA Labs CBC & Chem 7: 08/04/21 06:47 08/05/21 06:47 Labs: Laboratory Results - last 24 hr 08/04/21 08/04/21 08/05/21 16:13 20:07 06:47 Anion Gap 14 Estim Creat Clear Calc 57.8 Estimated GFR 33 POC Glucose 116 H 121 H Random Glucose 120 H Calcium 8.7 Vancomycin Trough 08/05/21 08/05/21 08/05/21 07:12 10:56 11:05 Anion Gap Estim Creat Clear Calc Estimated GFR POC Glucose 124 H 125 H Random Glucose Calcium Vancomycin Trough 32.3 H* Impressions Renal Ultrasound 08/05/21 11:54 IMPRESSION: Technically limited study with possible mild dilation of the renal pelvis bilaterally. No other abnormality seen. Microbiology Microbiology Results: Microbiology 08/02/21 21:01 Blood Culture - Preliminary Blood - Venous No growth after 48 hours. 08/02/21 18:52 Blood Culture - Preliminary Blood - Venous No growth after 48 hours. Assessment and Plan (1) Cellulitis: Status: Acute (2) Lactic acidosis: Status: Acute (3) Acute hyponatremia: Status: Acute Assessment and Plan: hospital d#4 31yo F with hx DM2, GERD, depression, anxiety, chronic pain, RLS, hypothyroidism presenting with fever + myalgias admitted for hyponatremia, sepsis from cellulitis/foot ulcer now with NADEEM # NADEEM - ?vancomycin toxicity- level is supratherapeutic- d/c vancomycin - IV fluid hydration - Nephrology consulted - recheck BMP in am # hyponatremia, euvolemic - excess PO fluid intake vs SIADH from psychiatric medications. resolved; lift fluid restriction # severe sepsis [tachypnea, tachycardia] due to cellulitis/L 5th MTP ulcer - MRI ruled out osteomyelitis - ID consultation pending - got 3d of vanco, change to doxycycline. pip/noah d#4. BCx NGTD # iron deficiency anemia - replete Fe PO, FOBT pending # DM2, A1c 6.4 - correction-dose lispro # mood disorder - continue benztropine, clomipramine, clonidine, gabapentin, haloperidol, prn lorazepam # RLS - continue ropinirole # hypothyroidism - continue LT4; TSH therapeutic # VTE ppx - LMWH # dispo - home on PO ABX once SCr improved Quality Stroke Does the patient have a stroke diagnosis?: No VTE Prior VTE?: No VTE Risk Level:: Medical - moderate - high VTE Device Contraindication: Treatment Not Indicated VTE Drug Contraindication: N/A - Med Ordered
[2021-08-05 16:02] LABS: Glucose, Whole Blood 98 mg/dL (60-115)
[2021-08-05] MEDS: LORazepam 1 MG TABLET PO ×2 (17:24→20:32)
[2021-08-05] MEDS: Triamcinolone Acet 0.1 % Cream 15 GM TUBE 1 APPL TOPICAL ×2 (18:46→20:37)
[2021-08-05] MEDS: Cholestyramine (With Sugar) 4 GM POWD.PACK PO (20:14)
[2021-08-05] MEDS: rOPINIRole HCL 0.5 MG TABLET PO (20:16)
[2021-08-05 20:25] LABS: Glucose, Whole Blood 118 mg/dL (60-115)
[2021-08-05] MEDS: Melatonin 3 MG TABLET 9 MG PO (20:32)
[2021-08-05] MEDS: Acetaminophen 325 MG TABLET PO (20:33)
[2021-08-05] MEDS: Enoxaparin Sodium 40 MG/0.4 ML SYRINGE SUBCUT (20:38)
--- NOTE | 2021-08-05 22:28 | P.CNID_ITS ---
History of Present Illness Data of Consult Service Date: 08/04/21 Requesting physician: Salty Carrillo Primary Care Provider: Jeovanny Ford MD HPI Reason for consult: left foot infection She presents with left leg and foot discomfort as well as scab border fifth toe. She has had feverish feeling but no chills. She has scab over foot. She has pain in area. Review of Systems Review of Systems: Yes all other systems are reviewed and are negative PMFSH Past Medical History Medical History Anxiety and depression Avascular necrosis Chronic pain Diabetes Restless leg syndrome Family History Family History Father Non Hodgkin's lymphoma Family history: reviewed and not pertinent Surgical History Surgical History History of right hip replacement Social History Social History Household Members: Family Housing: Apartment Do you presently have visiting nurse or other home services: Yes (visiting nurse for wound care) Alcohol intake: never Patient Tobacco Use Status: Never used Tobacco Use of substances other than those prescribed or required for medical reasons: No Currently Displaying Signs/Symptoms of Drug Intoxication Withdrawal: No Any prior treatment program specific to substance use: No Have you been hit, kicked, punched, or otherwise hurt by someone within the past year? If so, by whom?: No Do you feel safe in your current relationship?: No Is there a partner from a previous relationship who is making you feel unsafe now?: No Are you made to feel afraid or neglected: No Advance Directives: No Advance Directives Information Provided: No Do you have thoughts of harming others: None Do you have a plan to hurt others: No Plan Recently lost weight without trying: Unsure Eating poorly because of decreased appetite: Yes Nutrition Risks: Poor intake 0-25% >4 days Patient : No : No Poor oral hygiene: No service: No Meds Allergies Allergy/AdvReac Type Severity Reaction Status Date / Time barium iodide [BARIUM IODIDE] Allergy Unknown UNKNOWN Verified 08/02/21 21:22 carrot [CARROTS] Allergy Unknown UNKOWN Verified 08/02/21 21:22 clonazepam [CLONAZEPAM] Allergy Unknown UNKNOWN Verified 08/02/21 21:22 fluoxetine [From PROZAC] Allergy Unknown UNKNOWN Verified 08/02/21 21:22 neris [NERIS] Allergy Unknown UNKNOWN Verified 08/02/21 21:22 lactose [LACTOSE] Allergy Unknown UNKNOWN Verified 08/02/21 21:22 latex [LATEX] Allergy Unknown UNKNOWN Verified 08/02/21 21:22 metoclopramide [From REGLAN] Allergy Unknown UNKNOWN Verified 08/02/21 21:22 morphine [MORPHINE] Allergy Unknown UNKNOWN Verified 08/02/21 21:22 oats [OATS] Allergy Unknown UNKNOWN Verified 08/02/21 21:22 peanut [PEANUT] Allergy Unknown UNKNOWN Verified 08/02/21 21:22 pepper (genus Capsicum) Allergy Unknown UNKNOWN Verified 08/02/21 21:22 [PEPPER] potato [POTATO] Allergy Unknown UNKNOWN Verified 08/02/21 21:22 red dye [RED DYE] Allergy Unknown UNKNOWN Verified 08/02/21 21:22 sumatriptan [From IMITREX] Allergy Unknown UNKNOWN Verified 08/02/21 21:22 tetanus and diphtheria Allergy Unknown HIVES Verified 08/02/21 21:22 toxoids [TETANUS AND DIPHTHERIA TOXOIDS] tomato [TOMATO] Allergy Unknown UNKNOWN Verified 08/02/21 21:22 tree nut [TREE NUT] Allergy Unknown UNKNOWN Verified 08/02/21 21:22 cephalexin Allergy Unknown Verified 08/02/21 21:22 AMBICA GUM Allergy Unknown UNKNOWN Uncoded 05/18/20 16:22 Active Medications: Current Medications Acetaminophen (Acetaminophen Supp 650 Mg Supp.Rect) 650 mg NV Q6H PRN PRN Reason: Pain, Mild (Pain Scale 1-3) Acetaminophen (Acetaminophen 325 Mg Tablet) 325 mg PO QID PRN PRN Reason: Pain, Moderate (Pain Scale 4-6 Last Admin: 08/05/21 20:33 Dose: 325 mg Documented by: Acetaminophen/Butalbital/Caffeine (Butalb/Acetamin/Caff 50/325/40 Tablet) 1 tab PO BID PRN PRN Reason: Headache Last Admin: 08/04/21 10:52 Dose: 1 tab Documented by: Benztropine Mesylate (Benztropine Mesylate 0.5 Mg Tablet) 0.5 mg PO DAILY JUAN Last Admin: 08/05/21 09:46 Dose: 0.5 mg Documented by: Cholestyramine Resin (Cholestyramine (With Sugar) 4 Gm Powd.Pack) 4 gm PO BID [facility] Last Admin: 08/05/21 20:14 Dose: 4 gm Documented by: Clomipramine HCl (Clomipramine Hcl 25 Mg Capsule) 150 mg PO DAILY [facility] Last Admin: 08/05/21 09:45 Dose: 150 mg Documented by: Clonidine HCl (Clonidine Hcl 0.1 Mg Tablet) 0.1 mg PO BID [facility]; Protocol Last Admin: 08/05/21 20:16 Dose: 0.1 mg Documented by: Cyclobenzaprine HCl (Cyclobenzaprine Hcl 10 Mg Tablet) 10 mg PO BID [facility] Last Admin: 08/05/21 20:17 Dose: 10 mg Documented by: Dextrose (Dextrose 50 % 25 Gm/50 Ml Vial) 25 gm IVPUSH Q15M PRN; Protocol PRN Reason: per Hypoglycemia Standing Ord. Docusate Sodium (Docusate Sodium 100 Mg Capsule) 100 mg PO DAILY PRN PRN Reason: Constipation Enoxaparin Sodium (Enoxaparin Sodium 40 Mg/0.4 Ml Syringe) 40 mg SUBCUT Q24H [facility] Last Admin: 08/05/21 20:38 Dose: 40 mg Documented by: Famotidine (Famotidine 20 Mg Tablet) 40 mg PO DAILY [facility] Last Admin: 08/05/21 09:45 Dose: 40 mg Documented by: Ferrous Sulfate (Ferrous Sulfate 324 Mg Tablet.Dr) 324 mg PO DAILY [facility] Last Admin: 08/05/21 09:46 Dose: 324 mg Documented by: Fluticasone Propionate (Fluticasone Propionate Nasal 16 Gm Winter) 1 spray NOSTRIL-B DAILY PRN PRN Reason: Allergic Symptoms Gabapentin (Gabapentin 600 Mg Tablet) 600 mg PO QID [facility] Last Admin: 08/05/21 20:16 Dose: 600 mg Documented by: Glucose (Glucose Gel 15 Gm Gel..Gram.) 15 gm PO Q15M PRN; Protocol PRN Reason: per Hypoglycemia Standing Ord. Haloperidol (Haloperidol 5 Mg Tablet) 7.5 mg PO DAILY [facility] Last Admin: 08/05/21 09:47 Dose: 7.5 mg Documented by: Piperacillin Sod/Tazobactam (Sod 3.375 gm/ Sodium Chloride) 50 mls @ 100 mls/hr IV Q6H [facility] Last Admin: 08/05/21 22:01 Dose: 100 mls/hr Documented by: Doxycycline Hyclate 100 mg/ (Sodium Chloride) 250 mls @ 166.67 mls/hr IV Q12H [facility] Last Infusion: 08/05/21 22:11 Dose: Infused Documented by: Sodium Chloride (Ns) 1,000 mls @ 125 mls/hr IVCONT .Q8H [facility] Stop: 08/06/21 02:14 Last Admin: 08/05/21 17:32 Dose: 125 mls/hr Documented by: Insulin Human Lispro (Insulin Lispro 100 Unit/Ml 3 Ml Vial) 0 unit SUBCUT QIDACHS [facility]; Protocol Last Admin: 08/05/21 20:38 Dose: Not Given Documented by: Levothyroxine Sodium (Levothyroxine Sodium 175 Mcg Tablet) 175 mcg PO DAILY@0630 [facility] Last Admin: 08/05/21 06:18 Dose: 175 mcg Documented by: Loratadine (Loratadine 10 Mg Tablet) 10 mg PO DAILY [facility] Last Admin: 08/05/21 09:46 Dose: 10 mg Documented by: Lorazepam (Lorazepam 1 Mg Tablet) 1 mg PO QID PRN PRN Reason: Anxiety Last Admin: 08/05/21 20:32 Dose: 1 mg Documented by: Magnesium Oxide (Magnesium Oxide 400 Mg Tablet) 400 mg PO DAILY [facility] Last Admin: 08/05/21 09:47 Dose: 400 mg Documented by: Melatonin (Melatonin 3 Mg Tablet) 9 mg PO BEDTIME PRN PRN Reason: Insomnia Last Admin: 08/05/21 20:32 Dose: 9 mg Documented by: Metoprolol Tartrate (Metoprolol Tartrate 25 Mg Tablet) 25 mg PO BID [facility]; Protocol Last Admin: 08/05/21 20:17 Dose: 25 mg Documented by: Montelukast Sodium (Montelukast Sodium 10 Mg Tablet) 10 mg PO DAILY [facility] Last Admin: 08/05/21 09:46 Dose: 10 mg Documented by: Omeprazole (Omeprazole 40 Mg Capsule.) 40 mg PO DAILY [facility] Last Admin: 08/05/21 09:48 Dose: 40 mg Documented by: Ondansetron HCl (Ondansetron Hcl 4 Mg/2 Ml Vial) 4 mg IVPUSH Q8H PRN PRN Reason: Nausea and Vomiting Last Admin: 08/02/21 21:45 Dose: 4 mg Documented by: Oxycodone HCl (Oxycodone Hcl Immed Release 5 Mg Tablet) 10 mg PO QID PRN PRN Reason: Pain, Moderate (Pain Scale 4-6 Last Admin: 08/05/21 17:24 Dose: 10 mg Documented by: Pharmacy Consult (Consult Rx Perform Med Rec) 1 each MISCELLANE ONCE PRN PRN Reason: Consult order Pharmacy Consult (Consult Rx Vancomycin Dosing) 1 each MISCELLANE DAILY PRN PRN Reason: Consult order Ropinirole HCl (Ropinirole Hcl 0.5 Mg Tablet) 0.5 mg PO BEDTIME JUAN Last Admin: 08/05/21 20:16 Dose: 0.5 mg Documented by: Sodium Chloride (0.9 % Sodium Chloride Flush 3 Ml Syringe) 3 ml IVFLUSH QSHIFT [facility] Last Admin: 08/05/21 20:26 Dose: 3 ml Documented by: Triamcinolone Acetonide (Triamcinolone Acet 0.1 % Cream 15 Gm Tube) 1 appl TOPICAL BID JUAN; Protocol Last Admin: 08/05/21 20:37 Dose: 1 appl Documented by: Home Medications Medication Instructions Recorded Confirmed Last Taken Type albuterol sulfate 90 mcg/actuation 2 puff INHALATION Q4H PRN 08/02/21 08/02/21 Unknown History aerosol inhaler benztropine 0.5 mg tablet 0.5 mg PO DAILY 08/02/21 08/02/21 Unknown History [id number] 1 tab PO BID PRN 08/02/21 08/02/21 Unknown History 50 mg-325 mg-40 mg tablet cholecalciferol (vitamin D3) 50 50 mcg PO DAILY 08/02/21 08/02/21 Unknown History mcg (2,000 unit) tablet (Vitamin D3) clomipramine 75 mg capsule 150 mg PO DAILY 08/02/21 08/02/21 Unknown History clonidine HCl 0.1 mg tablet 1 tab PO BID 08/02/21 08/02/21 Unknown History colesevelam 625 mg tablet 1,250 mg PO BID 08/02/21 08/02/21 Unknown History cranberry 1,000 mg capsule 4,200 mg PO DAILY 08/02/21 08/02/21 Unknown History dexlansoprazole 60 mg 1 cap PO DAILY 08/02/21 08/02/21 Unknown History capsule,biphase delayed release (Dexilant) diclofenac sodium 75 mg 1 tab PO BID 08/02/21 08/02/21 Unknown History tablet,delayed release docusate sodium 100 mg capsule 1 cap PO DAILY 08/02/21 08/02/21 Unknown History escitalopram oxalate 20 mg tablet 30 mg PO DAILY 08/02/21 08/02/21 Unknown History famotidine 40 mg tablet 1 tab PO DAILY 08/02/21 08/02/21 Unknown History ferrous sulfate 325 mg (65 mg 325 mg PO DAILY 08/02/21 08/02/21 Unknown History iron) tablet (iron) fexofenadine 180 mg tablet 180 mg PO DAILY 08/02/21 08/02/21 Unknown History fluticasone propionate 50 1 spray INTRANASAL DAILY PRN 08/02/21 08/02/21 Unknown History mcg/actuation nasal spray,suspension gabapentin 600 mg tablet 600 mg PO QID 08/02/21 08/02/21 Unknown History haloperidol 5 mg tablet 7.5 mg PO DAILY 08/02/21 08/02/21 Unknown History levothyroxine 175 mcg tablet 1 tab PO DAILY 08/02/21 08/02/21 Unknown History lorazepam 1 mg tablet 1 mg PO QID 08/02/21 08/02/21 Unknown History magnesium oxide 400 mg (241.3 mg 1 tab PO DAILY 08/02/21 08/02/21 Unknown History magnesium) tablet melatonin 10 mg tablet 10 mg PO BEDTIME PRN 08/02/21 08/02/21 Unknown History methocarbamol 750 mg tablet 1 tab PO TID 08/02/21 08/02/21 Unknown History metoprolol tartrate 25 mg tablet 1 tab PO BID 08/02/21 08/02/21 Unknown History montelukast 10 mg tablet 1 tab PO DAILY 08/02/21 08/02/21 Unknown History oxycodone-acetaminophen 10 mg-325 1 tab PO QID 08/02/21 08/02/21 Unknown History mg tablet quetiapine 100 mg tablet 1 tab PO BEDTIME 08/02/21 08/02/21 Unknown History ropinirole 0.5 mg tablet 1 tab PO BEDTIME 08/02/21 08/02/21 Unknown History Physical Exam Vital Signs: Vital Signs: Last Vital Signs Temp 98.7 F 08/05/21 19:34 Pulse 97 08/05/21 20:17 Resp 19 08/05/21 19:34 BP 136/79 08/05/21 20:17 Pulse Ox 98 08/05/21 19:34 BMI result Body Mass Index 35.2 Const: General: cooperative HENMT: Head: Yes normal to inspection Mouth: Normal oral and palatal mucosa present Resp: Effort & Inspection: normal respiratory effort Cardio: Rate: regular rate Rhythm: regular rhythm GI: Palpation (GI): Soft to palpation and nontender Extrem: Other: scab area left fifth toe mild cellulitis Results Labs CBC & Chem 7: 08/04/21 06:47 08/05/21 06:47 Labs: BMP 08/05/21 06:47 Sodium 137 Potassium 3.7 Chloride 106 Carbon Dioxide 21 L BUN 11 D Creatinine 1.77 H Calcium 8.7 Microbiology Microbiology Results: Microbiology 08/02/21 21:01 Blood - Venous Blood Culture - Preliminary No growth after 48 hours. 08/02/21 18:52 Blood - Venous Blood Culture - Preliminary No growth after 48 hours. Assessment and Plan (1) Cellulitis: Status: Acute There is concern over cellulitis There is also possible neuropathic changes causing erythema Would continue antibiotics for now. po Doxycycline and Augmentin for a week likely
[2021-08-06] VITALS (8 sets, daily range): BP systolic 116–148; BP diastolic 67–90; PULSE 79–100; RESP 18–20; TEMP 36.4–37.6; O2SAT 92–98; BMI 35.9
[2021-08-06] MEDS: Piperacillin Sodium/Tazobactam 3.375 GM in 0.9 % Sodium Chloride 50 ML IV (02:41)
[2021-08-06 06:04] LABS: Anion Gap 14 (12-20); Blood Urea Nitrogen 14 mg/dL (9-16); C Reactive Protein 8.34 mg/dL (< or = 0.50); Calcium 8.2 mg/dL (8.4-10.2); Carbon Dioxide 21 mmol/L (22-29); Chloride 106 mmol/L (96-108); Creatinine Clr Calc Pharmacy 40.5; Estimated Glomerular Filt Rate 22; Glucose Random 124 mg/dL (60-115); Potassium 3.9 mmol/L (3.3-5.1); Sodium 137 mmol/L (135-145)
[2021-08-06 07:22] LABS: Glucose, Whole Blood 107 mg/dL (60-115)
[2021-08-06] MEDS: clomiPRAMINE HCl 25 MG CAPSULE 150 MG PO (08:37)
[2021-08-06] MEDS: Omeprazole 40 MG CAPSULE.DR PO (08:40)
[2021-08-06] MEDS: Gabapentin 600 MG TABLET PO ×4 (08:40→20:33)
[2021-08-06] MEDS: Loratadine 10 MG TABLET PO (08:40)
[2021-08-06] MEDS: Metoprolol Tartrate 25 MG TABLET PO ×2 (08:41→20:34)
[2021-08-06] MEDS: Levothyroxine Sodium 175 MCG TABLET PO (08:41)
[2021-08-06] MEDS: HaloperidoL 5 MG TABLET 7.5 MG PO (08:42)
[2021-08-06] MEDS: cloNIDine HCL 0.1 MG TABLET PO ×2 (08:43→20:34)
[2021-08-06] MEDS: Montelukast Sodium 10 MG TABLET PO (08:43)
[2021-08-06] MEDS: Doxycycline Hyclate 100 MG in 0.9 % Sodium Chloride 250 ML 166.67 MG IV ×2 (08:45→20:34)
[2021-08-06] MEDS: 0.9 % Sodium Chloride Flush 3 ML SYRINGE IVFLUSH ×3 (08:51→20:41)
[2021-08-06] MEDS: Benztropine Mesylate 0.5 MG TABLET PO (08:52)
[2021-08-06] MEDS: Cholestyramine (With Sugar) 4 GM POWD.PACK PO ×2 (08:54→20:33)
[2021-08-06] MEDS: Cyclobenzaprine HCl 10 MG TABLET PO ×2 (08:55→20:33)
[2021-08-06] MEDS: Ferrous Sulfate 324 MG TABLET.DR PO (08:55)
[2021-08-06] MEDS: Famotidine 20 MG TABLET 40 MG PO (08:56)
[2021-08-06] MEDS: Magnesium Oxide 400 MG TABLET PO (08:57)
[2021-08-06] MEDS: Triamcinolone Acet 0.1 % Cream 15 GM TUBE 1 APPL TOPICAL ×2 (08:58→21:52)
--- NOTE | 2021-08-06 10:42 | PM.PNNEP ---
Subjective Subjective Date of Service: 08/07/21 Interval history: Events noted Physical Exam Vital Signs: Vital Signs: Last Vital Signs Temp 97.8 F 08/06/21 07:03 Pulse 100 08/06/21 08:43 Resp 18 08/06/21 07:03 BP 132/88 08/06/21 08:43 Pulse Ox 97 08/06/21 07:03 BMI result Body Mass Index 35.9 Const: Other: patient is significant mono distress, crying General: cooperative, alert and awake Orientation/consciousness: patient oriented x3 HENMT: Head: Yes normal to inspection, Yes normocephalic and Yes atraumatic Mouth: Normal oral and palatal mucosa present Eyes: General: appearance normal, both eyes and all related structures Pupils: Equal, round and reactive pupils present Neck: Neck: Yes supple Resp: Effort & Inspection: normal respiratory effort Auscultation: clear to auscultation bilaterally Cardio: Rate: regular rate Rhythm: regular rhythm Heart sounds: S1 normal heart sound present and S2 normal heart sound present GI: Palpation (GI): Soft to palpation and nontender Auscultation: normal bowel sounds Skin: Other: has erythema , warmth, tenderness, edema from left foot all the way to just below the left knee, has an ulcer at the base of left 5th MTP, in base, nondraining, no swelling, patient reports tenderness when I palpate Neuro: General: patient oriented x3 Cranial nerves: Yes Equal, round and reactive pupils present Cognition (Neuro): normal cognition Extrem: Other: scab area left fifth toe mild cellulitis General: No pedal edema Objective Data Labs CBC & Chem 7: 08/04/21 06:47 08/07/21 06:31 Labs: Laboratory Results - last 24 hr 08/05/21 08/05/21 08/05/21 10:56 11:05 15:54 Sodium Potassium Chloride Carbon Dioxide Anion Gap BUN Creatinine Estim Creat Clear Calc Estimated GFR POC Glucose 125 H 98 Random Glucose Calcium C-Reactive Protein Vancomycin Trough 32.3 H* 08/05/21 08/06/21 08/06/21 20:14 05:07 07:02 Sodium 137 Potassium 3.9 Chloride 106 Carbon Dioxide 21 L Anion Gap 14 BUN 14 Creatinine 2.56 H Estim Creat Clear Calc 40.5 Estimated GFR 22 POC Glucose 118 H 107 Random Glucose 124 H Calcium 8.2 L C-Reactive Protein 8.34 H Vancomycin Trough Microbiology Microbiology Results: Microbiology 08/02/21 21:01 Blood - Venous Blood Culture - Preliminary No growth after 48 hours. 08/02/21 18:52 Blood - Venous Blood Culture - Preliminary No growth after 48 hours. Procedures Date of Service Date of Service: 08/06/21 Assessment & Plan Assessment and plan (1) Cellulitis: Status: Acute (2) NADEEM (acute kidney injury): Status: Acute Assessment and Plan: 1) Hyponatremia: ?Status:?Acute (2) NADEEM (acute kidney injury): ?Status:?Acute ?Assessment and Plan: Scr up and Sna normalized NADEEM due to vancomycin nephrotoxicity euvolemic hyponatremia low urine osmolality and sodium multifacrtorial: -excessive p.o. fluid intake -poor solute excretion -multiple medications that can be associated with inappropriate ADH release as well as pain REC Avoid nephrotoxins including vancomycin level Keep I > O at 50 cc/hr with NS lift fluid restriction follow electrolytes Time Spent With Patient Time: Total time spent is greater than 50% in coordination of care (as documented) at patient's floor/unit and/or counseling patient: Time with patient: 15 - 24 minutes Progress Note: Quality Stroke Does the patient have a stroke diagnosis?: No
[2021-08-06] MEDS: oxyCODONE HCl Immed Release 5 MG TABLET 10 MG PO ×2 (11:12→21:47)
[2021-08-06 11:16] LABS: Glucose, Whole Blood 115 mg/dL (60-115)
[2021-08-06] MEDS: 0.9 % Sodium Chloride 1,000 ML 50 ML IVCONT ×2 (11:50→21:48)
--- NOTE | 2021-08-06 14:59 | P.PNIM_ITS ---
Subjective Subjective Date of Service: 08/06/21 Interval History: Being followed for left leg cellulitis, patient complaining of pain left leg, denies fever chills no nausea, no vomiting, no other acute issues overnight. Review of Systems Review of Systems: Yes all other systems are reviewed and are negative Physical Exam Vital Signs: Vital Signs: Last Vital Signs Temp 97.6 F 08/06/21 10:58 Pulse 84 08/06/21 10:58 Resp 18 08/06/21 10:58 BP 120/79 08/06/21 10:58 Pulse Ox 97 08/06/21 10:58 BMI result Body Mass Index 35.9 Gen: Awake acute x3, no acute distress Neck: supple, no JVD Lungs: clear to auscultation bilaterally Heart: regular rate and rhythm, no murmurs Abd: soft, non-tender, non-distended, bowel sounds audible Ext: no edema Skin: erythema and warmth of LLE from knee to L foot , tender to palpation, improved from yesterday, clean-based shallow ulcer at base of L 5th MTP joint, no drainage Neuro: alert and oriented x3, no focal findings Psych: appropriate affect Objective Data Active Medications Acetaminophen (Acetaminophen Supp 650 Mg Supp.Rect) 650 mg [place] Q6H PRN PRN Reason: Pain, Mild (Pain Scale 1-3) Acetaminophen (Acetaminophen 325 Mg Tablet) 325 mg PO QID PRN PRN Reason: Pain, Moderate (Pain Scale 4-6 Last Admin: 08/05/21 20:33 Dose: 325 mg Documented by: PINEDA Acetaminophen/Butalbital/Caffeine (Butalb/Acetamin/Caff 50/325/40 Tablet) 1 tab PO BID PRN PRN Reason: Headache Last Admin: 08/04/21 10:52 Dose: 1 tab Documented by: DEBRA Benztropine Mesylate (Benztropine Mesylate 0.5 Mg Tablet) 0.5 mg PO DAILY COUNT [facility] Last Admin: 08/06/21 08:52 Dose: 0.5 mg Documented by: BRYANT Cholestyramine Resin (Cholestyramine (With Sugar) 4 Gm Powd.Pack) 4 gm PO BID COUNT [facility]CLUDES [facility] Last Admin: 08/06/21 08:54 Dose: 4 gm Documented by: BRYANT Clomipramine HCl (Clomipramine Hcl 25 Mg Capsule) 150 mg PO DAILY COUNT [facility] Last Admin: 08/06/21 08:37 Dose: 150 mg Documented by: BRYANT Clonidine HCl (Clonidine Hcl 0.1 Mg Tablet) 0.1 mg PO BID COUNT [facility]; Protocol Last Admin: 08/06/21 08:43 Dose: 0.1 mg Documented by: BRYANT Cyclobenzaprine HCl (Cyclobenzaprine Hcl 10 Mg Tablet) 10 mg PO BID COUNT [facility] Last Admin: 08/06/21 08:55 Dose: 10 mg Documented by: BRYANT Dextrose (Dextrose 50 % 25 Gm/50 Ml Vial) 25 gm IVPUSH Q15M PRN; Protocol PRN Reason: per Hypoglycemia Standing Ord. Docusate Sodium (Docusate Sodium 100 Mg Capsule) 100 mg PO DAILY PRN PRN Reason: Constipation Enoxaparin Sodium (Enoxaparin Sodium 40 Mg/0.4 Ml Syringe) 40 mg SUBCUT Q24H COUNT [facility] Last Admin: 08/05/21 20:38 Dose: 40 mg Documented by: PINEDA Famotidine (Famotidine 20 Mg Tablet) 40 mg PO DAILY COUNT [facility] Last Admin: 08/06/21 08:56 Dose: 40 mg Documented by: BRYANT Ferrous Sulfate (Ferrous Sulfate 324 Mg Tablet.Dr) 324 mg PO DAILY COUNT [facility] Last Admin: 08/06/21 08:55 Dose: 324 mg Documented by: BRYANT Fluticasone Propionate (Fluticasone Propionate Nasal 16 Gm [place]) 1 spray NOSTRIL-B DAILY PRN PRN Reason: Allergic Symptoms Gabapentin (Gabapentin 600 Mg Tablet) 600 mg PO QID COUNT [facility]CLUD[facility] Last Admin: 08/06/21 13:57 Dose: 600 mg Documented by: BRYANT Glucose (Glucose Gel 15 Gm Gel..Gram.) 15 gm PO Q15M PRN; Protocol PRN Reason: per Hypoglycemia Standing Ord. Haloperidol (Haloperidol 5 Mg Tablet) 7.5 mg PO DAILY COUNT [facility] Last Admin: 08/06/21 08:42 Dose: 7.5 mg Documented by: BRYANT Doxycycline Hyclate 100 mg/ (Sodium Chloride) 250 mls @ 166.67 mls/hr IV Q12H COUNT [facility]CLUDES [facility] Last Infusion: 08/06/21 11:10 Dose: 0 mls/hr Documented by: BRYANT Piperacillin Sod/Tazobactam (Sod 2.275 gm/ Sodium Chloride) 50 mls @ 100 mls/hr IV Q6H COUNT [facility] Last Infusion: 08/06/21 11:54 Dose: 0 mls/hr Documented by: BRYANT Sodium Chloride (Ns) 1,000 mls @ 50 mls/hr IVCONT .Q20H COUNT [facility] Last Admin: 08/06/21 11:50 Dose: 50 mls/hr Documented by: BRYANT Insulin Human Lispro (Insulin Lispro 100 Unit/Ml 3 Ml Vial) 0 unit SUBCUT QIDACHS COUNT [facility]CLUDES [facility]; Protocol Last Admin: 08/06/21 12:19 Dose: Not Given Documented by: BRYANT Non-Admin Reason: No Insulin Coverage Levothyroxine Sodium (Levothyroxine Sodium 175 Mcg Tablet) 175 mcg PO PAULA LY@0630 COUNT [facility]CLUDES [facility] Last Admin: 08/06/21 08:41 Dose: 175 mcg Documented by: BRYANT Loratadine (Loratadine 10 Mg Tablet) 10 mg PO DAILY COUNT [facility]CLUD[facility] Last Admin: 08/06/21 08:40 Dose: 10 mg Documented by: BRYANT Lorazepam (Lorazepam 1 Mg Tablet) 1 mg PO QID PRN PRN Reason: Anxiety Last Admin: 08/05/21 20:32 Dose: 1 mg Documented by: PINEDA Magnesium Oxide (Magnesium Oxide 400 Mg Tablet) 400 mg PO DAILY COUNT [facility]CLUD[facility] Last Admin: 08/06/21 08:57 Dose: 400 mg Documented by: BRYANT Melatonin (Melatonin 3 Mg Tablet) 9 mg PO BEDTIME PRN PRN Reason: Insomnia Last Admin: 08/05/21 20:32 Dose: 9 mg Documented by: PINEDA Metoprolol Tartrate (Metoprolol Tartrate 25 Mg Tablet) 25 mg PO BID COUNT [facility]; Protocol Last Admin: 08/06/21 08:41 Dose: 25 mg Documented by: BRYANT Montelukast Sodium (Montelukast Sodium 10 Mg Tablet) 10 mg PO DAILY COUNT [facility]CLUD[facility] Last Admin: 08/06/21 08:43 Dose: 10 mg Documented by: BRYANT Omeprazole (Omeprazole 40 Mg Capsule.) 40 mg PO DAILY COUNT [facility]CLUDES [facility] Last Admin: 08/06/21 08:40 Dose: 40 mg Documented by: BRYANT Ondansetron HCl (Ondansetron Hcl 4 Mg/2 Ml Vial) 4 mg IVPUSH Q8H PRN PRN Reason: Nausea and Vomiting Last Admin: 08/02/21 21:45 Dose: 4 mg Documented by: SARAH Oxycodone HCl (Oxycodone Hcl Immed Release 5 Mg Tablet) 10 mg PO QID PRN PRN Reason: Pain, Moderate (Pain Scale 4-6 Last Admin: 08/06/21 11:12 Dose: 10 mg Documented by: BRYANT Pharmacy Consult (Consult Rx Perform Med Rec) 1 each MISCELLANE ONCE PRN PRN Reason: Consult order Pharmacy Consult (Consult Rx Vancomycin Dosing) 1 each MISCELLANE DAILY PRN PRN Reason: Consult order Ropinirole HCl (Ropinirole Hcl 0.5 Mg Tablet) 0.5 mg PO BEDTIME [facility] Last Admin: 08/05/21 20:16 Dose: 0.5 mg Documented by: PINEDA Sodium Chloride (0.9 % Sodium Chloride Flush 3 Ml Syringe) 3 ml IVFLUSH QSHIFT COUNT INCLUDES [facility] Last Admin: 08/06/21 08:51 Dose: 3 ml Documented by: BRYANT Triamcinolone Acetonide (Triamcinolone Acet 0.1 % Cream 15 Gm Tube) 1 appl TOPICAL BID [facility]UAN; Protocol Last Admin: 08/06/21 08:58 Dose: 1 appl Documented by: BRYANT Labs CBC & Chem 7: 08/04/21 06:47 08/06/21 05:07 Labs: Laboratory Results - last 24 hr 08/05/21 08/05/21 08/06/21 15:54 20:14 05:07 Anion Gap 14 Estim Creat Clear Calc 40.5 Estimated GFR 22 POC Glucose 98 118 H Random Glucose 124 H Calcium 8.2 L C-Reactive Protein 8.34 H 08/06/21 08/06/21 07:02 11:00 Anion Gap Estim Creat Clear Calc Estimated GFR POC Glucose 107 115 Random Glucose Calcium C-Reactive Protein Assessment and Plan (1) NADEEM (acute kidney injury): Status: Acute (2) Hyponatremia: Status: Acute (3) Cellulitis: Status: Acute Assessment and Plan: hospital d#5 31yo F with hx DM2, GERD, depression, anxiety, chronic pain, RLS, hypothyroidism presenting with fever + myalgias admitted for hyponatremia, sepsis from cellulitis/foot ulcer now with NADEEM # NADEEM - likely related to vancomycin toxicity, vanco discontinued Creatinine bumped 1.7-2.5 Continue IV fluids follow BMP case discussed with Nephrology creatinine will like worsen before improving # hyponatremia, euvolemic - excess PO fluid intake vs SIADH from psychiatric medications.? resolved # severe sepsis [tachypnea, tachycardia] due to cellulitis/L 5th MTP ulcer - MRI showed no osteomyelitis s/p 3d of vanco, now on IV doxycycline.? pip/noah d#5. Seen by ID she recommend to continue antibiotics, BCx negative, advised to keep left leg elevated Continue oxycodone for pain control # iron deficiency anemia - hemoglobin stable 33.4, replete Fe PO, FOBT uncollected # DM2, A1c 6.4 - blood sugars stable, continue correction-dose lispro # mood disorder - continue benztropine, clomipramine, clonidine, gabapentin, haloperidol, prn lorazepam, no acute decompensation # RLS - continue ropinirole ? # hypothyroidism - continue LT4; TSH therapeutic # VTE ppx - LMWH # dispo - home on PO ABX once SCr improved Quality Stroke Does the patient have a stroke diagnosis?: No VTE Prior VTE?: No VTE Risk Level:: Medical - moderate - high VTE Device Contraindication: Treatment Not Indicated VTE Drug Contraindication: N/A - Med Ordered
[2021-08-06 16:32] LABS: Glucose, Whole Blood 109 mg/dL (60-115)
[2021-08-06] MEDS: Acetaminophen 325 MG TABLET PO (17:25)
[2021-08-06 20:10] LABS: Glucose, Whole Blood 121 mg/dL (60-115)
[2021-08-06] MEDS: Enoxaparin Sodium 40 MG/0.4 ML SYRINGE SUBCUT (20:34)
[2021-08-06] MEDS: rOPINIRole HCL 0.5 MG TABLET PO (20:34)
[2021-08-06] MEDS: LORazepam 1 MG TABLET PO (21:47)
[2021-08-06] MEDS: Melatonin 3 MG TABLET 9 MG PO (22:51)
[2021-08-06] MEDS: Piperacillin Sodium/Tazobactam 2.25 GM in 0.9 % Sodium Chloride 50 ML IV (22:52)
[2021-08-07] VITALS (8 sets, daily range): BP systolic 114–148; BP diastolic 67–81; PULSE 77–96; RESP 16–20; TEMP 36–36.8; O2SAT 91–97; BMI 35.6
[2021-08-07] MEDS: Levothyroxine Sodium 175 MCG TABLET PO (05:13)
[2021-08-07] MEDS: Piperacillin Sodium/Tazobactam 2.25 GM in 0.9 % Sodium Chloride 50 ML IV ×4 (05:13→23:43)
[2021-08-07 07:15] LABS: Glucose, Whole Blood 112 mg/dL (60-115)
[2021-08-07] MEDS: ondansetron HCL 4 MG/2 ML VIAL IVPUSH (07:40)
[2021-08-07 07:42] LABS: Anion Gap 17 (12-20); Blood Urea Nitrogen 17 mg/dL (9-16); Carbon Dioxide 17 mmol/L (22-29); Chloride 108 mmol/L (96-108); Creatinine Clr Calc Pharmacy 37.5; Estimated Glomerular Filt Rate 20; Glucose Random 102 mg/dL (60-115); Potassium 3.7 mmol/L (3.3-5.1); Sodium 138 mmol/L (135-145)
[2021-08-07] MEDS: 0.9 % Sodium Chloride Flush 3 ML SYRINGE IVFLUSH ×3 (07:42→21:42)
[2021-08-07] MEDS: Triamcinolone Acet 0.1 % Cream 15 GM TUBE 1 APPL TOPICAL ×2 (07:46→21:43)
[2021-08-07] MEDS: clomiPRAMINE HCl 25 MG CAPSULE 150 MG PO (07:47)
[2021-08-07] MEDS: Cyclobenzaprine HCl 10 MG TABLET PO ×2 (07:49→21:41)
[2021-08-07] MEDS: Famotidine 20 MG TABLET 40 MG PO (07:49)
[2021-08-07] MEDS: Omeprazole 40 MG CAPSULE.DR PO (07:49)
[2021-08-07] MEDS: Montelukast Sodium 10 MG TABLET PO (07:50)
[2021-08-07] MEDS: HaloperidoL 5 MG TABLET 7.5 MG PO (07:51)
[2021-08-07] MEDS: Magnesium Oxide 400 MG TABLET PO (07:52)
[2021-08-07] MEDS: cloNIDine HCL 0.1 MG TABLET PO ×2 (07:52→21:40)
[2021-08-07] MEDS: Gabapentin 600 MG TABLET PO ×4 (07:52→21:41)
[2021-08-07] MEDS: Benztropine Mesylate 0.5 MG TABLET PO (07:53)
[2021-08-07] MEDS: Ferrous Sulfate 324 MG TABLET.DR PO (07:53)
[2021-08-07] MEDS: Metoprolol Tartrate 25 MG TABLET PO ×2 (07:53→21:41)
[2021-08-07] MEDS: Loratadine 10 MG TABLET PO (07:54)
[2021-08-07] MEDS: Cholestyramine (With Sugar) 4 GM POWD.PACK PO ×2 (07:54→21:40)
[2021-08-07] MEDS: Doxycycline Hyclate 100 MG in 0.9 % Sodium Chloride 250 ML 166.67 MG IV ×2 (07:56→21:41)
[2021-08-07] MEDS: 0.9 % Sodium Chloride 1,000 ML 50 ML IVCONT (09:07)
--- NOTE | 2021-08-07 09:36 | P.PNNP_ITS ---
Subjective Subjective Date of Service: 08/07/21 Interval history: Events noted non oliguric Physical Exam Vital Signs: Vital Signs: Last Vital Signs Temp 96.8 F 08/07/21 07:03 Pulse 93 08/07/21 07:53 Resp 20 08/07/21 07:03 BP 148/69 H 08/07/21 07:53 Pulse Ox 96 08/07/21 07:03 BMI result Body Mass Index 35.6 Const: Other: patient is significant mono distress, crying General: cooperative, alert and awake Orientation/consciousness: patient oriented x3 HENMT: Head: Yes normal to inspection, Yes normocephalic and Yes atraumatic Mouth: Normal oral and palatal mucosa present Eyes: General: appearance normal, both eyes and all related structures Pu pils: Equal, round and reactive pupils present Neck: Neck: Yes supple Resp: Effort & Inspection: normal respiratory effort Auscultation: clear to auscultation bilaterally Cardio: Rate: regular rate Rhythm: regular rhythm Heart sounds: S1 normal heart sound present and S2 normal heart sound present GI: Palpation (GI): Soft to palpation and nontender Auscultation: normal bowel sounds Skin: Other: has erythema , warmth, tenderness, edema from left foot all the way to just below the left knee, has an ulcer at the base of left 5th MTP, in base, nondraining, no swelling, patient reports tenderness when I palpate Neuro: General: patient oriented x3 Cranial nerves: Yes Equal, round and reactive pupils present Cognition (Neuro): normal cognition Extrem: Other: scab area left fifth toe mild cellulitis General: No pedal edema Objective Data Labs CBC & Chem 7: 08/04/21 06:47 08/07/21 06:31 Labs: Laboratory Results - last 24 hr 08/06/21 08/06/21 08/06/21 11:00 16:22 20:02 Sodium Potassium Chloride Carbon Dioxide Anion Gap BUN Creatinine Estim Creat Clear Calc Estimated GFR POC Glucose 115 109 121 H Random Glucose Calcium 08/07/21 08/07/21 06:31 07:12 Sodium 138 Potassium 3.7 Chloride 108 Carbon Dioxide 17 L Anion Gap 17 BUN 17 H Creatinine 2.75 H Estim Creat Clear Calc 37.5 Estimated GFR 20 POC Glucose 112 Random Glucose 102 Calcium 8.0 L Microbiology Microbiology Results: Microbiology 08/02/21 21:01 Blood - Venous Blood Culture - Preliminary No growth after 48 hours. 08/02/21 18:52 Blood - Venous Blood Culture - Preliminary No growth after 48 hours. Procedures Date of Service Date of Service: 08/07/21 Assessment & Plan Assessment and plan (1) Cellulitis: Status: Acute (2) NADEEM (acute kidney injury): Status: Acute Assessment and Plan: 1) Hyponatremia: ?Status:?Acute (2) NADEEM (acute kidney injury): ?Status:?Acute ?Assessment and Plan: Scr up and Sna normalized NADEEM due to vancomycin nephrotoxicity Cr is still trending up BUT the delta increase has decreased! euvolemic hyponatremia low urine osmolality and sodium multifacrtorial: -excessive p.o. fluid intake -poor solute excretion -multiple medications that can be associated with inappropriate ADH release as well as pain REC Avoid nephrotoxins including vancomycin Keep I > O at 50 cc/hr with NS follow electrolytes Time Spent With Patient Time: Total time spent is greater than 50% in coordination of care (as documented) at patient's floor/unit and/or counseling patient: Time with patient: 15 - 24 minutes Progress Note: Quality Stroke Does the patient have a stroke diagnosis?: No
[2021-08-07 11:33] LABS: Glucose, Whole Blood 134 mg/dL (60-115)
--- NOTE | 2021-08-07 14:12 | HO.PM.IMPN ---
Subjective Subjective Date of Service: 08/07/21 Interval History: Being followed for acute kidney injury and left leg cellulitis, complaining of less pain in left leg, denies fever chills, no acute issues overnight. Review of Systems General no headache, no dizziness, no fever chills. CVS no chest pain, no palpitation. Respiratory no cough, no sob. Gastrointestinal no nausea, no vomiting, no abdominal pain Review of Systems: Yes all other systems are reviewed and are negative Physical Exam Vital Signs: Vital Signs: Last Vital Signs Temp 97.2 F 08/07/21 11:11 Pulse 77 08/07/21 11:11 Resp 16 08/07/21 11:11 BP 114/67 08/07/21 11:11 Pulse Ox 93 08/07/21 11:11 BMI result Body Mass Index 35.6 Gen:? Awake acute x 3, no acute distress Neck: supple, no JVD Lungs: clear to auscultation bilaterally Heart: regular rate and rhythm, no murmurs Abd: soft, non-tender, non-distended, bowel sounds audible Ext: no edema Skin: erythema and warmth of LLE from knee to L foot , tender to palpation, persistent swelling, redness improving , clean-based shallow ulcer at base of L 5th MTP joint, no drainage Neuro: alert and oriented x3, no focal findings Psych: appropriate affect Objective Data Active Medications Acetaminophen (Acetaminophen Supp 650 Mg Supp.Rect) 650 mg [place] Q6H PRN PRN Reason: Pain, Mild (Pain Scale 1-3) Acetaminophen (Acetaminophen 325 Mg Tablet) 325 mg PO QID PRN PRN Reason: Pain, Moderate (Pain Scale 4-6 Last Admin: 08/06/21 17:25 Dose: 325 mg Documented by: BRYANT Acetaminophen/Butalbital/Caffeine (Butalb/Acetamin/Caff 50/325/40 Tablet) 1 tab PO BID PRN PRN Reason: Headache Last Admin: 08/04/21 10:52 Dose: 1 tab Documented by: DEBRA Albuterol/Ipratropium (Albuterol/Iprat 2.5/0.5mg 3 Ml Ampul.Neb) 3 ml INHALE RQ4H PRN PRN Reason: Shortness of Breath/Wheezing Benztropine Mesylate (Benztropine Mesylate 0.5 Mg Tablet) 0.5 mg PO DAILY [facility] Last Admin: 08/07/21 07:53 Dose: 0.5 mg Documented by: BRYANT Cholestyramine Resin (Cholestyramine (With Sugar) 4 Gm Powd.Pack) 4 gm PO BID [facility] Last Admin: 08/07/21 07:54 Dose: 4 gm Documented by: BRYANT Clomipramine HCl (Clomipramine Hcl 25 Mg Capsule) 150 mg PO DAILY [facility] Last Admin: 08/07/21 07:47 Dose: 150 mg Documented by: BRYANT Clonidine HCl (Clonidine Hcl 0.1 Mg Tablet) 0.1 mg PO BID [facility]; Protocol Last Admin: 08/07/21 07:52 Dose: 0.1 mg Documented by: BRYANT Cyclobenzaprine HCl (Cyclobenzaprine Hcl 10 Mg Tablet) 10 mg PO BID [facility] Last Admin: 08/07/21 07:49 Dose: 10 mg Documented by: BRYANT Dextrose (Dextrose 50 % 25 Gm/50 Ml Vial) 25 gm IVPUSH Q15M PRN; Protocol PRN Reason: per Hypoglycemia Standing Ord. Docusate Sodium (Docusate Sodium 100 Mg Capsule) 100 mg PO DAILY PRN PRN Reason: Constipation Enoxaparin Sodium (Enoxaparin Sodium 40 Mg/0.4 Ml Syringe) 40 mg SUBCUT Q24H [facility] Last Admin: 08/06/21 20:34 Dose: 40 mg Documented by: RAJANI Famotidine (Famotidine 20 Mg Tablet) 40 mg PO DAILY [facility] Last Admin: 08/07/21 07:49 Dose: 40 mg Documented by: BRYANT Ferrous Sulfate (Ferrous Sulfate 324 Mg Tablet.Dr) 324 mg PO DAILY [facility] Last Admin: 08/07/21 07:53 Dose: 324 mg Documented by: BRYANT Fluticasone Propionate (Fluticasone Propionate Nasal 16 Gm [place]) 1 spray NOSTRIL-B DAILY PRN PRN Reason: Allergic Symptoms Gabapentin (Gabapentin 600 Mg Tablet) 600 mg PO QID [facility] Last Admin: 08/07/21 13:13 Dose: 600 mg Documented by: BRYANT Glucose (Glucose Gel 15 Gm Gel..Gram.) 15 gm PO Q15M PRN; Protocol PRN Reason: per Hypoglycemia Standing Ord. Haloperidol (Haloperidol 5 Mg Tablet) 7.5 mg PO DAILY [facility] Last Admin: 12/07/21 07:51 Dose: 7.5 mg Documented by: BRYANT Doxycycline Hyclate 100 mg/ (Sodium Chloride) 250 mls @ 166.67 mls/hr IV Q12H [facility] Last Infusion: 08/07/21 10:13 Dose: 0 mls/hr Documented by: LALO Sodium Chloride (Ns) 1,000 mls @ 50 mls/hr IVCONT .Q20H [facility] Last Admin: 08/07/21 09:07 Dose: 50 mls/hr Documented by: LALO Piperacillin Sod/Tazobactam (Sod 2.25 gm/ Sodium Chloride) 50 mls @ 100 mls/hr IV Q6H [facility] Last Infusion: 08/07/21 10:59 Dose: 0 mls/hr Documented by: LALO Insulin Human Lispro (Insulin Lispro 100 Unit/Ml 3 Ml Vial) 0 unit SUBCUT QIDACHS [facility]; Protocol Last Admin: 08/07/21 12:19 Dose: Not Given Documented by: BRYANT Non-Admin Reason: No Insulin Coverage Levothyroxine Sodium (Levothyroxine Sodium 175 Mcg Tablet) 175 mcg PO DAILY@0630 [facility] Last Admin: 08/07/21 05:13 Dose: 175 mcg Documented by: RAJANI Loratadine (Loratadine 10 Mg Tablet) 10 mg PO DAILY [facility] Last Admin: 08/07/21 07:54 Dose: 10 mg Documented by: BRYANT Lorazepam (Lorazepam 1 Mg Tablet) 1 mg PO QID PRN PRN Reason: Anxiety Last Admin: 08/06/21 21:47 Dose: 1 mg Documented by: RAJANI Magnesium Oxide (Magnesium Oxide 400 Mg Tablet) 400 mg PO DAILY [facility] Last Admin: 08/07/21 07:52 Dose: 400 mg Documented by: BRYANT Melatonin (Melatonin 3 Mg Tablet) 9 mg PO BEDTIME PRN PRN Reason: Insomnia Last Admin: 08/06/21 22:51 Dose: 9 mg Documented by: RAJANI Metoprolol Tartrate (Metoprolol Tartrate 25 Mg Tablet) 25 mg PO BID [facility]; Protocol Last Admin: 08/07/21 07:53 Dose: 25 mg Documented by: BRYANT Montelukast Sodium (Montelukast Sodium 10 Mg Tablet) 10 mg PO DAILY [facility] Last Admin: 08/07/21 07:50 Dose: 10 mg Documented by: BRYANT Omeprazole (Omeprazole 40 Mg Capsule.) 40 mg PO DAILY [facility] Last Admin: 08/07/21 07:49 Dose: 40 mg Documented by: BRYANT Ondansetron HCl (Ondansetron Hcl 4 Mg/2 Ml Vial) 4 mg IVPUSH Q8H PRN PRN Reason: Nausea and Vomiting Last Admin: 08/07/21 07:40 Dose: 4 mg Documented by: BRYANT Oxycodone HCl (Oxycodone Hcl Immed Release 5 Mg Tablet) 10 mg PO QID PRN PRN Reason: Pain, Moderate (Pain Scale 4-6 Last Admin: 08/06/21 21:47 Dose: 10 mg Documented by: RAJANI Pharmacy Consult (Consult Rx Perform Med Rec) 1 each MISCELLANE ONCE PRN PRN Reason: Consult order Pharmacy Consult (Consult Rx Vancomycin Dosing) 1 each MISCELLANE DAILY PRN PRN Reason: Consult order Ropinirole HCl (Ropinirole Hcl 0.5 Mg Tablet) 0.5 mg PO BEDTIME [facility] Last Admin: 08/06/21 20:34 Dose: 0.5 mg Documented by: RAJANI Simethicone (Simethicone 80 Mg Tab.Chew) 80 mg PO QIDWMHS PRN PRN Reason: Gas Sodium Chloride (0.9 % Sodium Chloride Flush 3 Ml Syringe) 3 ml IVFLUSH QSHIFT [facility] Last Admin: 08/07/21 07:42 Dose: 3 ml Documented by: BRYANT Triamcinolone Acetonide (Triamcinolone Acet 0.1 % Cream 15 Gm Tube) 1 appl TOPICAL BID [facility]; Protocol Last Admin: 08/07/21 07:46 Dose: 1 appl Documented by: BRYANT Labs CBC & Chem 7: 08/04/21 06:47 08/07/21 06:31 Labs: Laboratory Results - last 24 hr 08/06/21 08/06/21 08/07/21 16:22 20:02 06:31 Anion Gap 17 Estim Creat Clear Calc 37.5 Estimated GFR 20 POC Glucose 109 121 H Random Glucose 102 Calcium 8.0 L 08/07/21 08/07/21 07:12 11:28 Anion Gap Estim Creat Clear Calc Estimated GFR POC Glucose 112 134 H Random Glucose Calcium Assessment and Plan (1) NADEEM (acute kidney injury): Status: Acute (2) Cellulitis: Status: Acute (3) Hyponatremia: Status: Acute Assessment and Plan: 31yo F with hx DM2, GERD, depression, anxiety, chronic pain, RLS, hypothyroidism presenting with fever + myalgias admitted for hyponatremia, sepsis from cellulitis/foot ulcer now with NADEEM # NADEEM - related to vancomycin toxicity, vanco discontinued ? Creatinine bumped 1.7 to 2.5 to 2.7 ? Continue IV fluids follow BMP case discussed with Nephrology creatinine will likely worsen before improving. # hyponatremia, euvolemic - excess PO fluid intake vs SIADH from psychiatric medications.? resolved # severe sepsis [tachypnea, tachycardia] due to cellulitis/L 5th MTP ulcer Sepsis resolved MRI showed no osteomyelitis ? s/p 3d of vanco, now on IV doxycycline and iv? pip/noah d#6. ? Spoke with ID she recommend to continue above antibiotics, BCx negative, advised to keep left leg elevated ? Continue oxycodone for pain control # mild nausea gas pain continue as needed Zofran ,will add simethicone. # iron deficiency anemia - hemoglobin stable 33.4, continue by mouth iron follow CBC # DM2, A1c 6.4 - blood sugars stable, will DC correction-dose lispro # mood disorder - continue benztropine, clomipramine, clonidine, gabapentin, haloperidol, prn lorazepam, no acute decompensation # RLS - continue ropinirole ? # hypothyroidism - continue LT4; TSH therapeutic # VTE ppx - LMWH # dispo - home on PO ABX once SCr improved Quality Stroke Does the patient have a stroke diagnosis?: No VTE Prior VTE?: No VTE Risk Level:: Medical - moderate - high VTE Device Contraindication: Treatment Not Indicated VTE Drug Contraindication: N/A - Med Ordered
[2021-08-07] MEDS: Acetaminophen 325 MG TABLET PO (15:10)
[2021-08-07] MEDS: rOPINIRole HCL 0.5 MG TABLET PO (21:41)
[2021-08-07] MEDS: Enoxaparin Sodium 40 MG/0.4 ML SYRINGE SUBCUT (21:41)
[2021-08-08] VITALS (8 sets, daily range): BP systolic 133–165; BP diastolic 80–86; PULSE 75–90; RESP 18–20; TEMP 36.6–37.2; O2SAT 96–98; BMI 35.5
[2021-08-08] MEDS: Piperacillin Sodium/Tazobactam 2.25 GM in 0.9 % Sodium Chloride 50 ML IV (04:37)
[2021-08-08] MEDS: Levothyroxine Sodium 175 MCG TABLET PO (04:37)
[2021-08-08] MEDS: 0.9 % Sodium Chloride 1,000 ML 50 ML IVCONT (04:39)
[2021-08-08 07:22] LABS: Hematocrit 29.1 % (37.0-47.0); Hemoglobin 9.6 g/dl (12.0-16.0); Mean Corpuscular Hemoglobin 26.4 pg (27.0-33.0); Mean Corpuscular Volume 80.2 fL (80.0-98.0); Mean Platelet Volume 9.3 fL (9.4-12.3); Platelet Count 207 X10*3/uL (160-400); Red Blood Count 3.63 X10*6/uL (4.20-5.50); Red Cell Distribution Width 14.3 % (11.0-16.0); White Blood Count 7.2 X10*3/uL (4.8-10.8)
[2021-08-08 07:35] LABS: Anion Gap 16 (12-20); Blood Urea Nitrogen 19 mg/dL (9-16); Calcium 8.3 mg/dL (8.4-10.2); Carbon Dioxide 16 mmol/L (22-29); Chloride 109 mmol/L (96-108); Creatinine Clr Calc Pharmacy 38.8; Estimated Glomerular Filt Rate 21; Glucose Random 128 mg/dL (60-115); Potassium 3.5 mmol/L (3.3-5.1); Sodium 137 mmol/L (135-145)
[2021-08-08] MEDS: Doxycycline Hyclate 100 MG in 0.9 % Sodium Chloride 250 ML 166.7 MG IV (08:38)
[2021-08-08] MEDS: 0.9 % Sodium Chloride Flush 3 ML SYRINGE IVFLUSH ×3 (08:38→23:47)
[2021-08-08] MEDS: Metoprolol Tartrate 25 MG TABLET PO ×2 (08:39→23:46)
[2021-08-08] MEDS: Sodium Bicarbonate 650 MG TABLET PO ×2 (08:39→23:46)
[2021-08-08] MEDS: clomiPRAMINE HCl 25 MG CAPSULE 150 MG PO (08:39)
[2021-08-08] MEDS: Gabapentin 600 MG TABLET PO ×4 (08:39→23:46)
[2021-08-08] MEDS: Ferrous Sulfate 324 MG TABLET.DR PO (08:39)
[2021-08-08] MEDS: Magnesium Oxide 400 MG TABLET PO (08:39)
[2021-08-08] MEDS: Omeprazole 40 MG CAPSULE.DR PO (08:39)
[2021-08-08] MEDS: Loratadine 10 MG TABLET PO (08:40)
[2021-08-08] MEDS: cloNIDine HCL 0.1 MG TABLET PO ×2 (08:40→23:46)
[2021-08-08] MEDS: Montelukast Sodium 10 MG TABLET PO (08:40)
[2021-08-08] MEDS: Benztropine Mesylate 0.5 MG TABLET PO (08:40)
[2021-08-08] MEDS: HaloperidoL 5 MG TABLET 7.5 MG PO (08:40)
[2021-08-08] MEDS: Famotidine 20 MG TABLET 40 MG PO (08:40)
[2021-08-08] MEDS: Cyclobenzaprine HCl 10 MG TABLET PO ×2 (08:41→23:46)
[2021-08-08] MEDS: Triamcinolone Acet 0.1 % Cream 15 GM TUBE 1 APPL TOPICAL ×2 (08:47→23:50)
[2021-08-08 10:36] LABS: Appearance Urine CLEAR; Color Urine STRAW; Glucose Urine UA NEG (NEG); Leukocyte Esterase Urine NEG (NEG); Nitrite Urine NEG (NEG); Specific Gravity - Urine <= 1.005 (1.005-1.025); Urine Blood 1+ (NEG); Urine Ketones NEG (NEG); Urine Protein NEG (NEG-TRACE)
[2021-08-08 11:05] LABS: Squamous Epithelial Cell Urine 1+ /LPF; WBC Urine 0-2 /HPF (0-4)
--- NOTE | 2021-08-08 11:05 | PM.PNNEP ---
Subjective Subjective Date of Service: 08/08/21 Interval history: Events noted Physical Exam Vital Signs: Vital Signs: Last Vital Signs Temp 98.9 F 08/08/21 08:00 Pulse 80 08/08/21 08:39 Resp 18 08/08/21 08:00 BP 142/80 H 08/08/21 08:40 Pulse Ox 97 08/08/21 08:00 BMI result Body Mass Index 35.6 Const: Other: patient is significant mono distress, crying General: cooperative, alert and awake Orientation/consciousness: patient oriented x3 HENMT: Head: Yes normal to inspection, Yes normocephalic and Yes atraumatic Mouth: Normal oral and palatal mucosa present Eyes: General: appearance normal, both eyes and all related structures Pupils: Equal, round and reactive pupils present Neck: Neck: Yes supple Resp: Effort & Inspection: normal respiratory effort Auscultation: clear to auscultation bilaterally Cardio: Rate: regular rate Rhythm: regular rhythm Heart sounds: S1 normal heart sound present and S2 normal heart sound present GI: Palpation (GI): Soft to palpation and nontender Auscultation: normal bowel sounds Skin: Other: has erythema , warmth, tenderness, edema from left foot all the way to just below the left knee, has an ulcer at the base of left 5th MTP, in base, nondraining, no swelling, patient reports tenderness when I palpate Neuro: General: patient oriented x3 Cranial nerves: Yes Equal, round and reactive pupils present Cognition (Neuro): normal cognition Extrem: Other: scab area left fifth toe mild cellulitis General: No pedal edema Objective Data Labs CBC & Chem 7: 08/08/21 06:45 08/08/21 06:45 Labs: Laboratory Results - last 24 hr 08/07/21 08/08/21 08/08/21 11:28 06:45 06:45 WBC 7.2 RBC 3.63 L Hgb 9.6 L Hct 29.1 L MCV 80.2 MCH 26.4 L MCHC 33.0 RDW 14.3 Plt Count 207 MPV 9.3 L Absolute Nucleated RBC 0.000 Nucleated RBC % (auto) 0.0 Sodium 137 Potassium 3.5 Chloride 109 H Carbon Dioxide 16 L Anion Gap 16 BUN 19 H Creatinine 2.65 H Estim Creat Clear Calc 38.8 Estimated GFR 21 POC Glucose 134 H Random Glucose 128 H Calcium 8.3 L Urine Color Urine Appearance Urine pH Ur Specific [place] Urine Protein Urine Glucose (UA) Urine Ketones Urine Blood Urine Nitrite Ur Leukocyte Esterase Ur Random Sodium Urine Creatinine 08/08/21 08/08/21 08/08/21 09:53 09:53 09:53 WBC RBC Hgb Hct MCV MCH MCHC RDW Plt Count MPV Absolute Nucleated RBC Nucleated RBC % (auto) Sodium Potassium Chloride Carbon Dioxide Anion Gap BUN Creatinine Estim Creat Clear Calc Estimated GFR POC Glucose Random Glucose Calcium Urine Color STRAW Urine Appearance CLEAR Urine pH 6.0 Ur Specific [place] <= 1.005 Urine Protein NEG Urine Glucose (UA) NEG Urine Ketones NEG Urine Blood 1+ H Urine Nitrite NEG Ur Leukocyte Esterase NEG Ur Random Sodium 44.0 Urine Creatinine 13.10 Microbiology Microbiology Results: Microbiology 08/02/21 21:01 Blood - Venous Blood Culture - Final No growth after 5 days. 08/02/21 18:52 Blood - Venous Blood Culture - Final No growth after 5 days. Procedures Date of Service Date of Service: 08/08/21 Assessment & Plan Assessment and plan (1) Cellulitis: Status: Acute (2) NADEEM (acute kidney injury): Status: Acute Assessment and Plan: 1) Hyponatremia: ?Status:?Acute (2) NADEEM (acute kidney injury): ?Status:?Acute ?Assessment and Plan: Scr up and Sna normalized NADEEM due to vancomycin nephrotoxicityCR is trending down as of today euvolemic hyponatremia low urine osmolality and sodium multifacrtorial: -excessive p.o. fluid intake -poor solute excretion -multiple medications that can be associated with inappropriate ADH release as well as pain REC Avoid nephrotoxins including vancomycin Keep I > O at 50 cc/hr with NS x 1 more day follow electrolytes Time Spent With Patient Time: Total time spent is greater than 50% in coordination of care (as documented) at patient's floor/unit and/or counseling patient: Time with patient: 15 - 24 minutes Progress Note: Quality Stroke Does the patient have a stroke diagnosis?: No
[2021-08-08 11:52] LABS: OBS Int Ctl Valid YES; OBS1 NEGATIVE (NEGATIVE)
--- NOTE | 2021-08-08 12:39 | HO.PM.IMPN ---
Subjective Subjective Date of Service: 08/08/21 Interval History: Feeling better this a.m. less left leg pain, complaining of decreased appetite, no nausea, no vomiting, no headache, no fevers no chills. Review of Systems General no headache, no dizziness, no fever chills.? CVS no chest pain, no palpitation.? Respiratory no cough, no sob.? Gastrointestinal no nausea, no vomiting, no abdominal pain Review of Systems: Yes all other systems are reviewed and are negative Physical Exam Vital Signs: Vital Signs: Last Vital Signs Temp 98.2 F 08/08/21 11:46 Pulse 75 08/08/21 11:46 Resp 20 08/08/21 11:46 BP 133/86 08/08/21 11:46 Pulse Ox 97 08/08/21 11:46 BMI result Body Mass Index 35.6 Gen:? Awake acute x 3, no acute distress Neck: supple, no JVD Lungs: clear to auscultation bilaterally Heart: regular rate and rhythm, no murmurs Abd: soft, non-tender, non-distended, bowel sounds audible Ext: no edema Skin: erythema and warmth of LLE from knee to L foot , tender to palpation, swelling improving, redness improving , clean-based shallow ulcer at base of L 5th MTP joint, no drainage Neuro: alert and oriented x3, no focal findings Psych: appropriate affect Objective Data Active Medications Acetaminophen (Acetaminophen Supp 650 Mg Supp.Rect) 650 mg NV Q6H PRN PRN Reason: Pain, Mild (Pain Scale 1-3) Acetaminophen (Acetaminophen 325 Mg Tablet) 325 mg PO QID PRN PRN Reason: Pain, Moderate (Pain Scale 4-6 Last Admin: 08/07/21 15:10 Dose: 325 mg Documented by: BRYANT Acetaminophen/Butalbital/Caffeine (Butalb/Acetamin/Caff 50/325/40 Tablet) 1 tab PO BID PRN PRN Reason: Headache Last Admin: 08/04/21 10:52 Dose: 1 tab Documented by: DEBRA Albuterol/Ipratropium (Albuterol/Iprat 2.5/0.5mg 3 Ml Ampul.Neb) 3 ml INHALE RQ4H PRN PRN Reason: Shortness of Breath/Wheezing Benztropine Mesylate (Benztropine Mesylate 0.5 Mg Tablet) 0.5 mg PO DAILY [facility] Last Admin: 08/08/21 08:40 Dose: 0.5 mg Documented by: AUGUST Cholestyramine Resin (Cholestyramine (With Sugar) 4 Gm Powd.Pack) 4 gm PO BID [facility] Last Admin: 08/08/21 08:41 Dose: Not Given Documented by: AUGUST Non-Admin Reason: Patient Refused Clomipramine HCl (Clomipramine Hcl 25 Mg Capsule) 150 mg PO DAILY [facility] Last Admin: 08/08/21 08:39 Dose: 150 mg Documented by: AUGUST Clonidine HCl (Clonidine Hcl 0.1 Mg Tablet) 0.1 mg PO BID [facility]; Protocol Last Admin: 08/08/21 08:40 Dose: 0.1 mg Documented by: AUGUST Cyclobenzaprine HCl (Cyclobenzaprine Hcl 10 Mg Tablet) 10 mg PO BID [facility] Last Admin: 08/08/21 08:41 Dose: 10 mg Documented by: AUGUST Docusate Sodium (Docusate Sodium 100 Mg Capsule) 100 mg PO DAILY PRN PRN Reason: Constipation Enoxaparin Sodium (Enoxaparin Sodium 40 Mg/0.4 Ml Syringe) 40 mg SUBCUT Q24H [facility] Last Admin: 08/07/21 21:41 Dose: 40 mg Documented by: ANTNIKKIE Famotidine (Famotidine 20 Mg Tablet) 40 mg PO DAILY [facility] Last Admin: 08/08/21 08:40 Dose: 40 mg Documented by: AUGUST Ferrous Sulfate (Ferrous Sulfate 324 Mg Tablet.Dr) 324 mg PO DAILY [facility] Last Admin: 08/08/21 08:39 Dose: 324 mg Documented by: AUGUST Fluticasone Propionate (Fluticasone Propionate Nasal 16 Gm [place]) 1 spray NOSTRIL-B DAILY PRN PRN Reason: Allergic Symptoms Gabapentin (Gabapentin 600 Mg Tablet) 600 mg PO QID [facility] Last Admin: 08/08/21 08:39 Dose: 600 mg Documented by: AUGUST Haloperidol (Haloperidol 5 Mg Tablet) 7.5 mg PO DAILY [facility] Last Admin: 08/08/21 08:40 Dose: 7.5 mg Documented by: AUGUST Doxycycline Hyclate 100 mg/ (Sodium Chloride) 250 mls @ 166.67 mls/hr IV Q12H [facility] Last Admin: 08/08/21 08:38 Dose: 166.7 mls/hr Documented by: AUGUST Sodium Chloride (Ns) 1,000 mls @ 50 mls/hr IVCONT .Q20H [facility] Last Admin: 08/08/21 04:39 Dose: 50 mls/hr Documented by: VALERY Piperacillin Sod/Tazobactam (Sod 2.25 gm/ Sodium Chloride) 50 mls @ 100 mls/hr IV Q6H [facility] Last Infusion: 08/08/21 05:10 Dose: 0 mls/hr Documented by: VALERY Levothyroxine Sodium (Levothyroxine Sodium 175 Mcg Tablet) 175 mcg PO DAILY@0630 [facility] Last Admin: 08/08/21 04:37 Dose: 175 mcg Documented by: VALERY Loratadine (Loratadine 10 Mg Tablet) 10 mg PO DAILY [facility] Last Admin: 08/08/21 08:40 Dose: 10 mg Documented by: AUGUST Magnesium Oxide (Magnesium Oxide 400 Mg Tablet) 400 mg PO DAILY [facility] Last Admin: 08/08/21 08:39 Dose: 400 mg Documented by: AUGUST Melatonin (Melatonin 3 Mg Tablet) 9 mg PO BEDTIME PRN PRN Reason: Insomnia Last Admin: 08/06/21 22:51 Dose: 9 mg Documented by: RAJANI Metoprolol Tartrate (Metoprolol Tartrate 25 Mg Tablet) 25 mg PO BID [facility]; Protocol Last Admin: 08/08/21 08:39 Dose: 25 mg Documented by: AUGUST Montelukast Sodium (Montelukast Sodium 10 Mg Tablet) 10 mg PO DAILY [facility] Last Admin: 08/08/21 08:40 Dose: 10 mg Documented by: AUGUST Omeprazole (Omeprazole 40 Mg Capsule.Dr) 40 mg PO DAILY [facility] Last Admin: 08/08/21 08:39 Dose: 40 mg Documented by: AUGUST Ondansetron HCl (Ondansetron Hcl 4 Mg/2 Ml Vial) 4 mg IVPUSH Q8H PRN PRN Reason: Nausea and Vomiting Last Admin: 08/07/21 07:40 Dose: 4 mg Documented by: BRYANT Pharmacy Consult (Consult Rx Perform Med Rec) 1 each MISCELLANE ONCE PRN PRN Reason: Consult order Pharmacy Consult (Consult Rx Vancomycin Dosing) 1 each MISCELLANE DAILY PRN PRN Reason: Consult order Ropinirole HCl (Ropinirole Hcl 0.5 Mg Tablet) 0.5 mg PO BEDTIME [facility] Last Admin: 08/07/21 21:41 Dose: 0.5 mg Documented by: VALERY Simethicone (Simethicone 80 Mg Tab.Chew) 80 mg PO QIDWMHS PRN PRN Reason: Gas Sodium Bicarbonate (Sodium Bicarbonate 650 Mg Tablet) 650 mg PO BID [facility] Last Admin: 08/08/21 08:39 Dose: 650 mg Documented by: AUGUST Sodium Chloride (0.9 % Sodium Chloride Flush 3 Ml Syringe) 3 ml IVFLUSH QSHIFT [facility] Last Admin: 08/08/21 08:38 Dose: 3 ml Documented by: AUGUST Triamcinolone Acetonide (Triamcinolone Acet 0.1 % Cream 15 Gm Tube) 1 appl TOPICAL BID [facility]; Protocol Last Admin: 08/08/21 08:47 Dose: 1 appl Documented by: AUGUST Labs CBC & Chem 7: 08/08/21 06:45 08/08/21 06:45 Labs: Laboratory Results - last 24 hr 08/08/21 08/08/21 08/08/21 06:45 06:45 09:53 MCV 80.2 MCH 26.4 L MCHC 33.0 RDW 14.3 Plt Count 207 MPV 9.3 L Absolute Nucleated RBC 0.000 Nucleated RBC % (auto) 0.0 Anion Gap 16 Estim Creat Clear Calc 38.8 Estimated GFR 21 Random Glucose 128 H Calcium 8.3 L Urine Color Urine Appearance Urine pH Ur Specific [place] Urine Protein Urine Glucose (UA) Urine Ketones Urine Blood Urine Nitrite Ur Leukocyte Esterase Urine RBC Urine WBC Ur Squamous Epith Cells Urine Bacteria Ur Random Sodium Urine Creatinine 13.10 Stool Occult Blood 08/08/21 08/08/21 08/08/21 09:53 09:53 11:27 MCV MCH MCHC RDW Plt Count MPV Absolute Nucleated RBC Nucleated RBC % (auto) Anion Gap Estim Creat Clear Calc Estimated GFR Random Glucose Calcium Urine Color STRAW Urine Appearance CLEAR Urine pH 6.0 Ur Specific [place] <= 1.005 Urine Protein NEG Urine Glucose (UA) NEG Urine Ketones NEG Urine Blood 1+ H Urine Nitrite NEG Ur Leukocyte Esterase NEG Urine RBC 1-4 Urine WBC 0-2 Ur Squamous Epith Cells 1+ Urine Bacteria NONE Ur Random Sodium 44.0 Urine Creatinine Stool Occult Blood NEGATIVE Microbiology Microbiology Results: Microbiology 08/02/21 21:01 Blood Culture - Final Blood - Venous No growth after 5 days. 08/02/21 18:52 Blood Culture - Final Blood - Venous No growth after 5 days. Assessment and Plan (1) NADEEM (acute kidney injury): Status: Acute (2) Hyponatremia: Status: Acute (3) Lactic acidosis: Status: Acute (4) Cellulitis: Status: Acute Assessment and Plan: 31yo F with hx DM2, GERD, depression, anxiety, chronic pain, RLS, hypothyroidism presenting with fever + myalgias admitted for hyponatremia, sepsis from cellulitis/foot ulcer now with NADEEM # NADEEM with metabolic acidosis - related to vancomycin toxicity, vanco discontinued ? Creatinine bumped 1.7 to 2.5 to 2.7, today down to 2.65. ? Continue IV fluids follow BMP, case discussed with Nephrology they recommend to continue current treatment Will add bicarb due to acidosis # hyponatremia, euvolemic - excess PO fluid intake vs SIADH from psychiatric medications.? resolved # severe sepsis [tachypnea, tachycardia] due to cellulitis/L 5th MTP ulcer ? Sepsis resolved ? MRI showed no osteomyelitis ? s/p 3d of vanco, now on IV doxycycline and iv? pip/noah d#7. Gradually improving redness and swelling ? BCx negative, advised to keep left leg elevated ? Continue oxycodone for pain control # mild nausea gas pain resolved continue as needed Zofran and simethicone # iron deficiency anemia - hemoglobin stable 33.4, continue by mouth iron follow CBC # DM2, A1c 6.4 - blood sugars stable not on home medication # mood disorder - continue benztropine, clomipramine, clonidine, gabapentin, haloperidol, prn lorazepam, no acute decompensation # RLS - continue ropinirole ? # hypothyroidism - continue LT4; TSH therapeutic # VTE ppx - LMWH # dispo - home on PO ABX once SCr improved Quality Stroke Does the patient have a stroke diagnosis?: No VTE Prior VTE?: No VTE Risk Level:: Medical - moderate - high VTE Device Contraindication: Treatment Not Indicated VTE Drug Contraindication: N/A - Med Ordered
--- NOTE | 2021-08-08 12:52 | PM.IDPN ---
Subjective Subjective Date of Service: 08/08/21 Critical Care Time (minutes): 15 Comment: She feels as though leg still reddened Objective Data Labs CBC & Chem 7: 08/08/21 06:45 08/08/21 06:45 Labs: Laboratory Results - last 24 hr 08/08/21 08/08/21 08/08/21 06:45 06:45 09:53 WBC 7.2 RBC 3.63 L Hgb 9.6 L Hct 29.1 L MCV 80.2 MCH 26.4 L MCHC 33.0 RDW 14.3 Plt Count 207 MPV 9.3 L Absolute Nucleated RBC 0.000 Nucleated RBC % (auto) 0.0 Sodium 137 Potassium 3.5 Chloride 109 H Carbon Dioxide 16 L Anion Gap 16 BUN 19 H Creatinine 2.65 H Estim Creat Clear Calc 38.8 Estimated GFR 21 Random Glucose 128 H Calcium 8.3 L Urine Color Urine Appearance Urine pH Ur Specific [place] Urine Protein Urine Glucose (UA) Urine Ketones Urine Blood Urine Nitrite Ur Leukocyte Esterase Urine RBC Urine WBC Ur Squamous Epith Cells Urine Bacteria Ur Random Sodium Urine Creatinine 13.10 Stool Occult Blood 08/08/21 08/08/21 08/08/21 09:53 09:53 11:27 WBC RBC Hgb Hct MCV MCH MCHC RDW Plt Count MPV Absolute Nucleated RBC Nucleated RBC % (auto) Sodium Potassium Chloride Carbon Dioxide Anion Gap BUN Creatinine Estim Creat Clear Calc Estimated GFR Random Glucose Calcium Urine Color STRAW Urine Appearance CLEAR Urine pH 6.0 Ur Specific [place] <= 1.005 Urine Protein NEG Urine Glucose (UA) NEG Urine Ketones NEG Urine Blood 1+ H Urine Nitrite NEG Ur Leukocyte Esterase NEG Urine RBC 1-4 Urine WBC 0-2 Ur Squamous Epith Cells 1+ Urine Bacteria NONE Ur Random Sodium 44.0 Urine Creatinine Stool Occult Blood NEGATIVE Microbiology Microbiology Results: Microbiology 08/02/21 21:01 Blood - Venous Blood Culture - Final No growth after 5 days. 08/02/21 18:52 Blood - Venous Blood Culture - Final No growth after 5 days. Physical Exam Vital Signs: Vital Signs: Last Vital Signs Temp 98.2 F 08/08/21 11:46 Pulse 75 08/08/21 11:46 Resp 20 08/08/21 11:46 BP 133/86 08/08/21 11:46 Pulse Ox 97 08/08/21 11:46 BMI result Body Mass Index 35.6 Const: General: cooperative Eyes: General: appearance normal, both eyes and all related structures Resp: Effort & Inspection: normal respiratory effort Cardio: Rate: regular rate Rhythm: regular rhythm GI: Palpation (GI): Soft to palpation and nontender Extrem: Other: left leg scaly area circumscribed with blisters Assessment and Plan Assessment and plan (1) Cellulitis: Status: Acute Assessment and Plan: The reddened area of left leg appears scaly and blistered more consistent with dermatitis/scaly areas There is no celllulitis of concern Assessment and Plan: Would continue steroid cream as will especially help blisters Would give po Amoxicillin for a week ?strep Time Spent With Patient Time: Total time spent is greater than 50% in coordination of care (as documented) at patient's floor/unit and/or counseling patient: Time with patient: 15 - 24 minutes
[2021-08-08] MEDS: LORazepam 1 MG TABLET PO (16:23)
[2021-08-08] MEDS: Amoxicillin 500 MG CAPSULE PO ×2 (16:23→23:46)
[2021-08-08] MEDS: Acetaminophen 325 MG TABLET PO (16:51)
[2021-08-08 20:02] LABS: Glucose, Whole Blood 110 mg/dL (60-115)
[2021-08-08] MEDS: Enoxaparin Sodium 40 MG/0.4 ML SYRINGE SUBCUT (23:46)
[2021-08-08] MEDS: rOPINIRole HCL 0.5 MG TABLET PO (23:46)
[2021-08-08] MEDS: Melatonin 3 MG TABLET 9 MG PO (23:55)
[2021-08-09] VITALS (8 sets, daily range): BP systolic 128–143; BP diastolic 60–80; PULSE 62–87; RESP 18–20; TEMP 36.2–36.8; O2SAT 93–98; BMI 35.1
[2021-08-09] MEDS: Amoxicillin 500 MG CAPSULE PO ×3 (05:46→20:23)
[2021-08-09] MEDS: 0.9 % Sodium Chloride 1,000 ML 50 ML IVCONT (05:46)
[2021-08-09] MEDS: Levothyroxine Sodium 175 MCG TABLET PO (05:55)
[2021-08-09 08:31] LABS: Anion Gap 16 (12-20); Blood Urea Nitrogen 20 mg/dL (9-16); Calcium 8.5 mg/dL (8.4-10.2); Carbon Dioxide 17 mmol/L (22-29); Chloride 111 mmol/L (96-108); Creatinine Clr Calc Pharmacy 42.6; Estimated Glomerular Filt Rate 23; Glucose Random 108 mg/dL (60-115); Potassium 3.8 mmol/L (3.3-5.1); Sodium 140 mmol/L (135-145)
[2021-08-09] MEDS: Triamcinolone Acet 0.1 % Cream 15 GM TUBE 1 APPL TOPICAL ×2 (09:51→20:28)
[2021-08-09] MEDS: Benztropine Mesylate 0.5 MG TABLET PO (09:51)
[2021-08-09] MEDS: Omeprazole 40 MG CAPSULE.DR PO (09:51)
[2021-08-09] MEDS: cloNIDine HCL 0.1 MG TABLET PO ×2 (09:51→20:23)
[2021-08-09] MEDS: Loratadine 10 MG TABLET PO (09:51)
[2021-08-09] MEDS: Cyclobenzaprine HCl 10 MG TABLET PO ×2 (09:51→20:23)
[2021-08-09] MEDS: clomiPRAMINE HCl 25 MG CAPSULE 150 MG PO (09:51)
[2021-08-09] MEDS: Sodium Bicarbonate 650 MG TABLET PO ×2 (09:51→20:23)
[2021-08-09] MEDS: Famotidine 20 MG TABLET 40 MG PO (09:51)
[2021-08-09] MEDS: Gabapentin 600 MG TABLET PO ×4 (09:52→20:23)
[2021-08-09] MEDS: Metoprolol Tartrate 25 MG TABLET PO ×2 (09:52→20:23)
[2021-08-09] MEDS: HaloperidoL 5 MG TABLET 7.5 MG PO (09:52)
[2021-08-09] MEDS: Ferrous Sulfate 324 MG TABLET.DR PO (09:52)
[2021-08-09] MEDS: Montelukast Sodium 10 MG TABLET PO (09:52)
[2021-08-09] MEDS: Magnesium Oxide 400 MG TABLET PO (09:52)
--- NOTE | 2021-08-09 12:00 | PM.PNNEP ---
Subjective Subjective Date of Service: 08/10/21 Interval history: Events noted Physical Exam Vital Signs: Vital Signs: Last Vital Signs Temp 97.1 F 08/09/21 11:00 Pulse 62 08/09/21 11:00 Resp 18 08/09/21 11:00 BP 128/76 08/09/21 11:00 Pulse Ox 96 08/09/21 11:00 BMI result Body Mass Index 35.1 Const: Other: patient is significant mono distress, crying General: cooperative, alert and awake Orientation/consciousness: patient oriented x3 HENMT: Head: Yes normal to inspection, Yes normocephalic and Yes atraumatic Mouth: Normal oral and palatal mucosa present Eyes: General: appearance normal, both eyes and all related structures Pupils: Equal, round and reactive pupils present Neck: Neck: Yes supple Resp: Effort & Inspection: normal respiratory effort Auscultation: clear to auscultation bilaterally Cardio: Rate: regular rate Rhythm: regular rhythm Heart sounds: S1 normal heart sound present and S2 normal heart sound present GI: Palpation (GI): Soft to palpation and nontender Auscultation: normal bowel sounds Skin: Other: has erythema , warmth, tenderness, edema from left foot all the way to just below the left knee, has an ulcer at the base of left 5th MTP, in base, nondraining, no swelling, patient reports tenderness when I palpate Neuro: General: patient oriented x3 Cranial nerves: Yes Equal, round and reactive pupils present Cognition (Neuro): normal cognition Extrem: Other: scab area left fifth toe mild cellulitis General: No pedal edema Objective Data Labs CBC & Chem 7: 08/10/21 06:17 08/10/21 06:17 Labs: Laboratory Results - last 24 hr 08/08/21 08/09/21 19:55 06:33 Sodium 140 Potassium 3.8 Chloride 111 H Carbon Dioxide 17 L Anion Gap 16 BUN 20 H Creatinine 2.40 H Estim Creat Clear Calc 42.6 Estimated GFR 23 POC Glucose 110 Random Glucose 108 Calcium 8.5 Microbiology Microbiology Results: Microbiology 08/02/21 21:01 Blood - Venous Blood Culture - Final No growth after 5 days. 08/02/21 18:52 Blood - Venous Blood Culture - Final No growth after 5 days. Procedures Date of Service Date of Service: 08/09/21 Assessment & Plan Assessment and plan (1) Cellulitis: Status: Acute (2) NADEEM (acute kidney injury): Status: Acute Assessment and Plan: 1) Hyponatremia: ?Status:?Acute (2) NADEEM (acute kidney injury): ?Status:?Acute ?Assessment and Plan: Scr up and Sna normalized NADEEM due to vancomycin nephrotoxicity CR is trending down euvolemic hyponatremia low urine osmolality and sodium multifacrtorial: -excessive p.o. fluid intake -poor solute excretion -multiple medications that can be associated with inappropriate ADH release as well as pain REC Avoid nephrotoxins including vancomycin Keep I > O no need for IVF Time Spent With Patient Time: Total time spent is greater than 50% in coordination of care (as documented) at patient's floor/unit and/or counseling patient: Progress Note: Quality Stroke Does the patient have a stroke diagnosis?: No
--- NOTE | 2021-08-09 13:35 | HO.PM.IMPN ---
Subjective Subjective Date of Service: 08/09/21 Interval History: Feeling better, denies right leg pain, redness is looking better, decreased swelling, no overnight acute issues no fevers no chills. Review of Systems General no headache, no dizziness, no fever chills.? CVS no chest pain, no palpitation.? Respiratory no cough, no sob.? Gastrointestinal no nausea, no vomiting, no abdominal pain Review of Systems: Yes all other systems are reviewed and are negative Physical Exam Vital Signs: Vital Signs: Last Vital Signs Temp 97.1 F 08/09/21 11:00 Pulse 62 08/09/21 11:00 Resp 18 08/09/21 11:00 BP 128/76 08/09/21 11:00 Pulse Ox 96 08/09/21 11:00 BMI result Body Mass Index 35.1 Gen:? Awake, alert x 3, no acute dis tress Neck: supple , no JVD Lungs: cl ear to auscultatio n bilaterally Hear t: regular rate an d rhythm, no murmu rs Abd: soft, non- tender, non-disten ded, bowel sounds audible Ext: no ed gage Skin: erythema and warmth of LLE from knee to L fo ot , swelling impr oving, dry scaly s kin, redness impro ving , clean-based shallow ulcer at base of L 5th MTP joint, no drainage Neuro: alert and oriented x3, no fo simba findings Psych : appropriate affe ct Objective Data Active Medications Acetaminophen (Acetaminophen Supp 650 Mg Supp.Rect) 650 mg NC Q6H PRN PRN Reason: Pain, Mild (Pain Scale 1-3) Acetaminophen (Acetaminophen 325 Mg Tablet) 325 mg PO QID PRN PRN Reason: Pain, Moderate (Pain Scale 4-6 Last Admin: 08/08/21 16:51 Dose: 325 mg Documented by: AUGUST Acetaminophen/Butalbital/Caffeine (Butalb/Acetamin/Caff 50/325/40 Tablet) 1 tab PO BID PRN PRN Reason: Headache Last Admin: 08/04/21 10:52 Dose: 1 tab Documented by: DEBRA Albuterol/Ipratropium (Albuterol/Iprat 2.5/0.5mg 3 Ml Ampul.Neb) 3 ml INHALE RQ4H PRN PRN Reason: Shortness of Breath/Wheezing Amoxicillin (Amoxicillin 500 Mg Capsule) 500 mg PO Q8H [facility] Last Admin: 08/09/21 12:41 Dose: 500 mg Documented by: COTEMA Benztropine Mesylate (Benztropine Mesylate 0.5 Mg Tablet) 0.5 mg PO DAILY [facility] Last Admin: 08/09/21 09:51 Dose: 0.5 mg Documented by: COTEMA Cholestyramine Resin (Cholestyramine (With Sugar) 4 Gm Powd.Pack) 4 gm PO BID [facility] Last Admin: 08/09/21 09:52 Dose: Not Given Documented by: COTEMA Non-Admin Reason: Patient Refused Clomipramine HCl (Clomipramine Hcl 25 Mg Capsule) 150 mg PO DAILY [facility] Last Admin: 08/09/21 09:51 Dose: 150 mg Documented by: COTEMA Clonidine HCl (Clonidine Hcl 0.1 Mg Tablet) 0.1 mg PO BID [facility]; Protocol Last Admin: 08/09/21 09:51 Dose: 0.1 mg Documented by: COTEMA Cyclobenzaprine HCl (Cyclobenzaprine Hcl 10 Mg Tablet) 10 mg PO BID [facility] Last Admin: 08/09/21 09:51 Dose: 10 mg Documented by: COTEMA Docusate Sodium (Docusate Sodium 100 Mg Capsule) 100 mg PO DAILY PRN PRN Reason: Constipation Enoxaparin Sodium (Enoxaparin Sodium 40 Mg/0.4 Ml Syringe) 40 mg SUBCUT Q24H [facility] Last Admin: 08/08/21 23:46 Dose: 40 mg Documented by: ANTOIC Famotidine (Famotidine 20 Mg Tablet) 40 mg PO DAILY [facility] Last Admin: 08/09/21 09:51 Dose: 40 mg Documented by: JUSTINE.COTEMA Ferrous Sulfate (Ferrous Sulfate 324 Mg Tablet.Dr) 324 mg PO DAILY [facility] Last Admin: 08/09/21 09:52 Dose: 324 mg Documented by: COTEMA Fluticasone Propionate (Fluticasone Propionate Nasal 16 Gm [place]) 1 spray NOSTRIL-B DAILY PRN PRN Reason: Allergic Symptoms Gabapentin (Gabapentin 600 Mg Tablet) 600 mg PO QID [facility] Last Admin: 08/09/21 12:41 Dose: 600 mg Documented by: COTEMA Haloperidol (Haloperidol 5 Mg Tablet) 7.5 mg PO DAILY [facility] Last Admin: 08/09/21 09:52 Dose: 7.5 mg Documented by: COTEMA Levothyroxine Sodium (Levothyroxine Sodium 175 Mcg Tablet) 175 mcg PO DAILY@0630 [facility] Last Admin: 08/09/21 05:55 Dose: 175 mcg Documented by: VITALY Loratadine (Loratadine 10 Mg Tablet) 10 mg PO DAILY [facility] Last Admin: 08/09/21 09:51 Dose: 10 mg Documented by: COTEMA Lorazepam (Lorazepam 1 Mg Tablet) 1 mg PO Q6H PRN PRN Reason: Anxiety Last Admin: 08/08/21 16:23 Dose: 1 mg Documented by: AUGUST Magnesium Oxide (Magnesium Oxide 400 Mg Tablet) 400 mg PO DAILY [facility] Last Admin: 08/09/21 09:52 Dose: 400 mg Documented by: COTEMA Melatonin (Melatonin 3 Mg Tablet) 9 mg PO BEDTIME PRN PRN Reason: Insomnia Last Admin: 08/08/21 23:55 Dose: 9 mg Documented by: ANTOIC Metoprolol Tartrate (Metoprolol Tartrate 25 Mg Tablet) 25 mg PO BID [facility]; Protocol Last Admin: 08/09/21 09:52 Dose: 25 mg Documented by: COTEMA Montelukast Sodium (Montelukast Sodium 10 Mg Tablet) 10 mg PO DAILY [facility] Last Admin: 08/09/21 09:52 Dose: 10 mg Documented by: JUSTINE.COTEMA Omeprazole (Omeprazole 40 Mg Capsule.Dr) 40 mg PO DAILY [facility] Last Admin: 08/09/21 09:51 Dose: 40 mg Documented by: PARULEMA Ondansetron HCl (Ondansetron Hcl 4 Mg/2 Ml Vial) 4 mg IVPUSH Q8H PRN PRN Reason: Nausea and Vomiting Last Admin: 08/07/21 07:40 Dose: 4 mg Documented by: BRYANT Pharmacy Consult (Consult Rx Perform Med Rec) 1 each MISCELLANE ONCE PRN PRN Reason: Consult order Pharmacy Consult (Consult Rx Vancomycin Dosing) 1 each MISCELLANE DAILY PRN PRN Reason: Consult order Ropinirole HCl (Ropinirole Hcl 0.5 Mg Tablet) 0.5 mg PO BEDTIME [facility] Last Admin: 08/08/21 23:46 Dose: 0.5 mg Documented by: ANTOIC Simethicone (Simethicone 80 Mg Tab.Chew) 80 mg PO QIDWMHS PRN PRN Reason: Gas Sodium Bicarbonate (Sodium Bicarbonate 650 Mg Tablet) 650 mg PO BID [facility] Last Admin: 08/09/21 09:51 Dose: 650 mg Documented by: COTEMA Sodium Chloride (0.9 % Sodium Chloride Flush 3 Ml Syringe) 3 ml IVFLUSH QSHIFT [facility] Last Admin: 08/09/21 07:33 Dose: Not Given Documented by: COTEMA Non-Admin Reason: IV Running Triamcinolone Acetonide (Triamcinolone Acet 0.1 % Cream 15 Gm Tube) 1 appl TOPICAL BID [facility]; Protocol Last Admin: 08/09/21 09:51 Dose: 1 appl Documented by: ANABELLE Labs CBC & Chem 7: 08/08/21 06:45 08/09/21 06:33 Labs: Laboratory Results - last 24 hr 08/08/21 08/09/21 19:55 06:33 Anion Gap 16 Estim Creat Clear Calc 42.6 Estimated GFR 23 POC Glucose 110 Random Glucose 108 Calcium 8.5 Assessment and Plan (1) NADEEM (acute kidney injury): Status: Acute (2) Hyponatremia: Status: Acute (3) Lactic acidosis: Status: Acute (4) Cellulitis: Status: Acute Assessment and Plan: 31yo F with hx DM2, GERD, depression, anxiety, chronic pain, RLS, hypothyroidism presenting with fever + myalgias admitted for hyponatremia, sepsis from cellulitis/foot ulcer now with NADEEM # NADEEM with metabolic acidosis - related to vancomycin toxicity, vanco discontinued ? Creatinine bumped 1.7 to 2.7, now trending down to 2.4 ? dc IV fluids, follow BMP, ? Continue bicarb due to acidosis # hyponatremia, euvolemic - excess PO fluid intake vs SIADH from psychiatric medications.? resolved # severe sepsis [tachypnea, tachycardia] due to cellulitis/L 5th MTP ulcer ? Sepsis resolved ? MRI showed no osteomyelitis ? s/p 3d of vanco, s/p IV doxycycline and iv? pip/noha x 7 days Seen by ID she recommend by mouth amoxicillin and Kenalog cream due to dermatitis ? BCx negative, advised to keep left leg elevated ? Continue oxycodone for pain control # mild nausea gas pain resolved continue as needed Zofran and simethicone # iron deficiency anemia - hemoglobin stable 33.4, continue by mouth iron follow CBC # DM2, A1c 6.4 - blood sugars stable not on home medication # mood disorder - continue benztropine, clomipramine, clonidine, gabapentin, haloperidol, prn lorazepam, no acute decompensation # RLS - continue ropinirole ? # hypothyroidism - continue LT4; TSH therapeutic # VTE ppx - LMWH # dispo - home on PO ABX in next 24 hours if creatinine continue to trend down. Quality Stroke Does the patient have a stroke diagnosis?: No VTE Prior VTE?: No VTE Risk Level:: Medical - moderate - high VTE Device Contraindication: Treatment Not Indicated VTE Drug Contraindication: N/A - Med Ordered
[2021-08-09] MEDS: 0.9 % Sodium Chloride Flush 3 ML SYRINGE IVFLUSH ×2 (16:29→20:22)
[2021-08-09] MEDS: Enoxaparin Sodium 40 MG/0.4 ML SYRINGE SUBCUT (20:22)
[2021-08-09] MEDS: Acetaminophen 325 MG TABLET PO (20:23)
[2021-08-09] MEDS: rOPINIRole HCL 0.5 MG TABLET PO (20:23)
[2021-08-10] MEDS: Melatonin 3 MG TABLET 9 MG PO (02:07)
[2021-08-10 04:00] VITALS: BP 152/81; PULSE 83; RESP 20; TEMP 36.8; O2SAT 98
[2021-08-10] MEDS: Levothyroxine Sodium 175 MCG TABLET PO (05:20)
[2021-08-10] MEDS: Amoxicillin 500 MG CAPSULE PO (05:21)
[2021-08-10 05:42] VITALS: BMI 35.0
[2021-08-10 06:31] LABS: Hematocrit 29.6 % (37.0-47.0); Hemoglobin 9.7 g/dl (12.0-16.0); Mean Corpuscular HGB Conc 32.8 g/dl (31.0-35.0); Mean Corpuscular Hemoglobin 26.4 pg (27.0-33.0); Mean Corpuscular Volume 80.4 fL (80.0-98.0); Mean Platelet Volume 9.2 fL (9.4-12.3); Platelet Count 309 X10*3/uL (160-400); Red Blood Count 3.68 X10*6/uL (4.20-5.50); Red Cell Distribution Width 14.3 % (11.0-16.0); White Blood Count 7.9 X10*3/uL (4.8-10.8)
[2021-08-10 07:10] LABS: Anion Gap 15 (12-20); Blood Urea Nitrogen 22 mg/dL (9-16); Calcium 8.7 mg/dL (8.4-10.2); Carbon Dioxide 19 mmol/L (22-29); Chloride 109 mmol/L (96-108); Estimated Glomerular Filt Rate 25; Glucose Random 112 mg/dL (60-115); Potassium 3.7 mmol/L (3.3-5.1); Sodium 139 mmol/L (135-145)
[2021-08-10 07:12] VITALS: BP 140/75; PULSE 75; RESP 18; TEMP 35.5; O2SAT 98
[2021-08-10] MEDS: HaloperidoL 5 MG TABLET 7.5 MG PO (09:09)
[2021-08-10] MEDS: clomiPRAMINE HCl 25 MG CAPSULE 150 MG PO (09:10)
[2021-08-10] MEDS: Famotidine 20 MG TABLET 40 MG PO (09:10)
[2021-08-10] MEDS: Cyclobenzaprine HCl 10 MG TABLET PO (09:12)
[2021-08-10 09:13] VITALS: BP 140/75; PULSE 75
[2021-08-10] MEDS: Montelukast Sodium 10 MG TABLET PO (09:13)
[2021-08-10] MEDS: Gabapentin 600 MG TABLET PO (09:13)
[2021-08-10] MEDS: Ferrous Sulfate 324 MG TABLET.DR PO (09:13)
[2021-08-10] MEDS: Magnesium Oxide 400 MG TABLET PO (09:13)
[2021-08-10] MEDS: Loratadine 10 MG TABLET PO (09:13)
[2021-08-10] MEDS: cloNIDine HCL 0.1 MG TABLET PO (09:13)
[2021-08-10 09:14] VITALS: BP 140/75; PULSE 75
[2021-08-10] MEDS: Sodium Bicarbonate 650 MG TABLET PO (09:14)
[2021-08-10] MEDS: Omeprazole 40 MG CAPSULE.DR PO (09:14)
[2021-08-10] MEDS: Benztropine Mesylate 0.5 MG TABLET PO (09:14)
[2021-08-10] MEDS: Metoprolol Tartrate 25 MG TABLET PO (09:14)
[2021-08-10] MEDS: Cholestyramine (With Sugar) 4 GM POWD.PACK PO (09:15)
[2021-08-10] MEDS: Triamcinolone Acet 0.1 % Cream 15 GM TUBE 1 APPL TOPICAL (09:15)
--- NOTE | 2021-08-10 10:06 | MHC.CM.PN ---
pt dcd today overlook vna notified to resume servceis
--- NOTE | 2021-08-10 11:04 | PM.PNNEP ---
Subjective Subjective Date of Service: 08/11/21 Interval history: Feeling better, denies right leg pain, redness is looking better, decreased swelling, no overnight acute issues no fevers no chills. Physical Exam Vital Signs: Vital Signs: Last Vital Signs Temp 96 F L 08/10/21 07:12 Pulse 75 08/10/21 09:14 Resp 18 08/10/21 07:12 BP 140/75 H 08/10/21 09:14 Pulse Ox 98 08/10/21 07:12 BMI result Body Mass Index 35.0 Const: Other: patient is significant mono distress, crying General: cooperative, alert and awake Orientation/consciousness: patient oriented x3 HENMT: Head: Yes normal to inspection, Yes normocephalic and Yes atraumatic Mouth: Normal oral and palatal mucosa present Eyes: General: appearance normal, both eyes and all related structures Pupils: Equal, round and reactive pupils present Neck: Neck: Yes supple Resp: Effort & Inspection: normal respiratory effort Auscultation: clear to auscultation bilaterally Cardio: Rate: regular rate Rhythm: regular rhythm Heart sounds: S1 normal heart sound present and S2 normal heart sound present GI: Palpation (GI): Soft to palpation and nontender Auscultation: normal bowel sounds Skin: Other: has erythema , warmth, tenderness, edema from left foot all the way to just below the left knee, has an ulcer at the base of left 5th MTP, in base, nondraining, no swelling, patient reports tenderness when I palpate Neuro: General: patient oriented x3 Cranial nerves: Yes Equal, round and reactive pupils present Cognition (Neuro): normal cognition Extrem: Other: scab area left fifth toe mild cellulitis General: No pedal edema Objective Data Labs CBC & Chem 7: 08/10/21 06:17 08/10/21 06:17 Labs: Laboratory Results - last 24 hr 08/10/21 08/10/21 06:17 06:17 WBC 7.9 RBC 3.68 L Hgb 9.7 L Hct 29.6 L MCV 80.4 MCH 26.4 L MCHC 32.8 RDW 14.3 Plt Count 309 D MPV 9.2 L Absolute Nucleated RBC 0.000 Nucleated RBC % (auto) 0.0 Sodium 139 Potassium 3.7 Chloride 109 H Carbon Dioxide 19 L Anion Gap 15 BUN 22 H Creatinine 2.27 H Estim Creat Clear Calc 45.0 Estimated GFR 25 Random Glucose 112 Calcium 8.7 Microbiology Microbiology Results: Microbiology 08/02/21 21:01 Blood - Venous Blood Culture - Final No growth after 5 days. 08/02/21 18:52 Blood - Venous Blood Culture - Final No growth after 5 days. Procedures Date of Service Date of Service: 08/10/21 Assessment & Plan Assessment and plan (1) Cellulitis: Status: Acute (2) NADEEM (acute kidney injury): Status: Acute Assessment and Plan: 1) Hyponatremia: ?Status:?Acute (2) NADEEM (acute kidney injury): ?Status:?Acute ?Assessment and Plan: Scr up and Sna normalized NADEEM due to vancomycin nephrotoxicity CR is trending down euvolemic hyponatremia low urine osmolality and sodium multifacrtorial: -excessive p.o. fluid intake -poor solute excretion -multiple medications that can be associated with inappropriate ADH release as well as pain REC Avoid nephrotoxins including vancomycin Keep I > O no need for IVF DC planning Shall arrange for outpt follow up Time Spent With Patient Time: Total time spent is greater than 50% in coordination of care (as documented) at patient's floor/unit and/or counseling patient: Time with patient: 15 - 24 minutes Progress Note: Quality Stroke Does the patient have a stroke diagnosis?: No
--- NOTE | 2021-08-10 12:00 | P.DS_ITS ---
DS: Providers Provider Date of Service: 08/10/21 Date of admission: 08/02/21 21:18 Primary care physician: Jeovanny Ford MD Consults: 08/02/21 21:20 Consult to Nephrology Routine Consulting Provider[facility] Reason for consultation: hyponatremia Has provider been notified: No 08/03/21 05:48 Consult to Infectious Diseases Routine Consulting Provider: Sharon Guerra Reason for consultation: diabetic foot ulcer Has provider been notified: No 08/05/21 07:50 Consult to Nephrology Routine Consulting Provider: Roland Osorio Reason for consultation: nadeem DS: Diagnosis Discharge Diagnosis (1) Cellulitis: Status: Acute (2) NADEEM (acute kidney injury): Status: Acute DS: Summary Hospital Course Hospital Course: Chief Complaint: muscle pain ?this is a 31-year-old female with an extensive past medical history that includes diabetes, GERD, depression, anxiety, chronic pain, hypothyroidism, restless leg syndrome among others who presents to the hospital with complaints? fever as well as overall not feeling well, having muscle pain.? Patient is very distraught, crying, not really giving a good history she just keeps saying that she is in pain all over her body and is chronic.? Her daughters visit her today, was concerned about her code she also has a left foot base ulcer that looked infected and therefore called the ambulance and was brought into the hospital.? Patient? reports a headache and history of migraines, denies any dizziness or blurred vision, denies any chest pain, no shortness of breath, she is complaining of generalized abdominal pain, has? nausea vomiting and diarrhea that has now improved, she is reporting that she has had fevers of 100.9 at home.? Denies any urinary symptoms. patient reports left hip pain ? All other review of system negative ?on arrival to the ED patient hemodynamically stable with a temp of 98.7?, heart rate of 111, respiratory rate of 25, satting? 96% on room air ?labs? on arrival significant for WBC count of 15.9, hemoglobin of 11.9, hematocrit 35.4, sodium level of 125, creatinine of 0.7, glucose of 166, lactic acid of 4.0, CRP of 21.2, UA negative, COV ?hip pelvic x-ray shows no evidence of acute fracture or? this cc of the pelvis. ?patient received 2 L of NS? In the ED which caused her sodium to correct from 125-130.? Patient will be admitted for further management. Hospital course 31yo F with hx DM2, GERD, depression, anxiety, chronic pain, RLS, hypothyroidism presenting with fever + myalgias and diagnosed to have hyponatremia, sepsis from cellulitis/foot ulcer Hyponatremia it was felt that low-sodium was related to excessive by mouth fluid intake versus SIADH from psychiatric medication, fluid was restricted patient's sodium improved, recommend to DC Lexapro Called patients sister and informed her to hold Lexapro 30 mg due to low sodium. Severe sepsis due to tachycardia, tachypnea related to left lower extremity cellulitis and L 5th MTP ulcer, patient treated with IV vancomycin initially but developed Vanco toxicity and acute kidney injury, therefore antibiotic switched to IV Zosyn and subsequently transitioned to by mouth amoxicillin for 1 week, patient also noted to have localized dermatitis for which she has been recommended to use steroid cream, blood cultures x2 are negative. NADEEM with metabolic acidosis related to vancomycin toxicity, Creatinine bumped from 0.7 to 1.7 and peaked to 2.7, now trending down to 2.4, patient was followed closely by Nephrology, she has been recommended to repeat BMP early next week with with follow-up with PCP and Nephrology, she is recommended to avoid nephrotoxins including NSAIDs. iron deficiency anemia hemoglobin stable 33.4, continue by mouth iron follow CBC DM2, A1c 6.4 blood sugars stable not on home medication mood disorder continue benztropine, clomipramine, clonidine, gabapentin, haloperidol, prn lorazepam, no acute decompensation noted hypothyroidism continue LT4; TSH therapeutic Time Spent with Patient Time attestation: Total time spent providing and/or coordinating discharge services: Discharge coordination time: Greater than 30 minutes Quality: Stroke Does the patient have a stroke diagnosis?: No Physical Exam Vital Signs: Vital Signs: Last Vital Signs Temp 96 F L 08/10/21 07:12 Pulse 75 08/10/21 09:14 Resp 18 08/10/21 07:12 BP 140/75 H 08/10/21 09:14 Pulse Ox 98 08/10/21 07:12 BMI result Body Mass Index 35.0 Gen:? Awake acute x 3, no acute distress Neck: supple, no JVD Lungs: clear to auscultation bilaterally Heart: regular rate and rhythm, no murmurs Abd: soft, non-tender, non-distended, bowel sounds audible Ext: no edema Skin: Left lower extremity redness and swelling significantly, nontender to palpation,clean-based shallow ulcer at base of L 5th MTP joint, no drainage Neuro: alert and oriented x3, no focal findings Psych: appropriate affect DS: Data Data Completed and Pending Labs on day of discharge: Laboratory Results - last 24 hr 08/10/21 08/10/21 06:17 06:17 WBC 7.9 RBC 3.68 L Hgb 9.7 L Hct 29.6 L MCV 80.4 MCH 26.4 L MCHC 32.8 RDW 14.3 Plt Count 309 D MPV 9.2 L Absolute Nucleated RBC 0.000 Nucleated RBC % (auto) 0.0 Sodium 139 Potassium 3.7 Chloride 109 H Carbon Dioxide 19 L Anion Gap 15 BUN 22 H Creatinine 2.27 H Estim Creat Clear Calc 45.0 Estimated GFR 25 Random Glucose 112 Calcium 8.7 Discharge Plan Discharge Patient Disposition: Home Health Service Discharge Diagnosis: Left lower extremity cellulitis Severe sepsis due to cellulitis Hyponatremia Acute kidney injur Referrals: silverio lisa [Other] - 1 Week Jeovanny Ford MD [Primary Care Provider] - 2 days (Change of mind please come back to the emergency department.) Discharge Medications: New amoxicillin 500 mg Capsule 500 mg PO Q8H Qty: 18 RF: 0 Continued levothyroxine 175 mcg tablet 1 tab PO DAILY RF: 0 clonidine HCl 0.1 mg tablet 1 tab PO BID RF: 0 gabapentin 600 mg tablet 600 mg PO QID RF: 0 clomipramine 75 mg capsule 150 mg PO DAILY RF: 0 famotidine 40 mg tablet 1 tab PO DAILY RF: 0 quetiapine 100 mg tablet 1 tab PO BEDTIME RF: 0 [id number]-rqhtbfgrpfzxy-dgsu 50-325-40 mg tablet 1 tab PO BID PRN (Reason: Headache) RF: 0 magnesium oxide 400 mg (241.3 mg magnesium) tablet 1 tab PO DAILY RF: 0 methocarbamol 750 mg tablet 1 tab PO TID RF: 0 oxycodone-acetaminophen 10-325 mg tablet 1 tab PO QID RF: 0 ropinirole 0.5 mg tablet 1 tab PO BEDTIME RF: 0 docusate sodium 100 mg capsule 1 cap PO DAILY RF: 0 montelukast 10 mg tablet 1 tab PO DAILY RF: 0 lorazepam 1 mg tablet 1 mg PO QID RF: 0 fluticasone propionate 50 mcg/actuation spray,suspension 1 spray intranasal DAILY PRN (Reason: Allergic Symptoms) RF: 0 metoprolol tartrate 25 mg tablet 1 tab PO BID RF: 0 Dexilant 60 mg capsule,biphase delayed releas 1 cap PO DAILY RF: 0 benztropine 0.5 mg tablet 0.5 mg PO DAILY RF: 0 haloperidol 5 mg tablet 7.5 mg PO DAILY RF: 0 fexofenadine 180 mg Tablet 180 mg PO DAILY RF: 0 colesevelam 625 mg tablet 1,250 mg PO BID RF: 0 ferrous sulfate [iron] 325 mg (65 mg iron) Tablet 325 mg PO DAILY RF: 0 albuterol sulfate 90 mcg/actuation HFA aerosol inhaler 2 puff inhalation Q4H PRN (Reason: Shortness Of Breath) RF: 0 cranberry 1,000 mg Capsule 4,200 mg PO DAILY RF: 0 cholecalciferol (vitamin D3) [Vitamin D3] 50 mcg (2,000 unit) Tablet 50 mcg PO DAILY RF: 0 melatonin 10 mg Tablet 10 mg PO BEDTIME PRN (Reason: Insomnia) RF: 0 Discontinued diclofenac sodium 75 mg tablet,delayed release (DR/EC) 1 tab PO BID RF: 0 escitalopram oxalate 20 mg tablet 30 mg PO DAILY RF: 0 Discharge Orders: Discharge Order (Routine); Ordered 08/10/21 Ordered By: Irasema Jay Diet: advance to usual diet Activity on Discharge: As tolerated Stand Alone Forms: Patient Portal Discharge page Other Ambulatory Orders: Basic Metabolic Panel (Routine) Timeframe: [id number] Facility: [facility] - Location: Laboratory Ordered By: Irasema Jay Care Plan Goals: Acute kidney injury do not take any Advil , Motrin hold Diclofenac acid tablets till the kidney function has normalized Take by mouth amoxicillin for 6 more days Apply Kenalog cream to left leg twice daily for 2 weeks Keep leg elevated, apply moisturizer to leg as needed Check BMP on Friday late entry Called patient at [phone] and informed her not to take Lexapro 30 mg Health Concerns: Cellulitis, mood disorder, take all other medications as prescribed. Plan of Treatment: Outpatient follow-up with primary care physician in 1 week, outpatient follow-up with Nephrology Dr. Contreras as per primary care recommendation Assessment: As above Patient Instructions: Hyponatremia (ED), Against Medical Advice (ED) Discharge Date/Time: 08/10/21 12:00
== END 2021-08-10 12:00 | disposition home health service (06) | DRG 872 ==
LOC: HO.ED 17:26 → HO.EDOVER 21:32 → HO.IMC 23:15
PROVIDERS: Family Medicine; Internal Medicine Nephrology; Admitting Provider Internal Medicine; Emergency Provider Emergency Medicine Emergency Medical Services; PCP Internal Medicine; Visit Provider Hospitalist
DX: A41.9 Sepsis, unspecified organism (principal); E87.1 Hypo-osmolality and hyponatremia; L03.116 Cellulitis of left lower limb; N17.9 Acute kidney failure, unspecified; R65.20 Severe sepsis without septic shock; K21.9 Gastro-esophageal reflux disease without esophagitis; E03.9 Hypothyroidism, unspecified; E11.621 Type 2 diabetes mellitus with foot ulcer; G25.81 Restless legs syndrome; F32.A Depression, unspecified; D50.9 Iron deficiency anemia, unspecified; F41.9 Anxiety disorder, unspecified; T36.8X5A Adverse effect of other systemic antibiotics, initial encounter; Y92.9 Unspecified place or not applicable; L97.529 Non-pressure chronic ulcer of other part of left foot with unspecified severity; Z88.5 Allergy status to narcotic agent; Z20.822 Contact with and (suspected) exposure to COVID-19; Z79.51 Long term (current) use of inhaled steroids; Z79.890 Hormone replacement therapy; Z79.899 Other long term (current) drug therapy
CPT/HCPCS: 36415; 73502; 73720; 76775; 80048; 80202; 81001; 82272; 82533; 82550; 82728; 82947; 83036; 83540; 83605; 83935; 84300; 84443; 84550; 84702; 85025; 85027; 85652; 86140; 87040; 87635; 87651; 96361; 96365; 96375; 96376; 97161; 99284; 99285; A9585; J1650; J1885; J2060; J2405; J2543; J3370

== ENCOUNTER 2021-08-13 11:22 | Outpatient (REF) | payer MEDICARE, MEDICAID, SELFPAY ==
[2021-08-13 12:27] LABS: Anion Gap 15 (12-20); Blood Urea Nitrogen 20 mg/dL (9-16); Calcium 9.7 mg/dL (8.4-10.2); Carbon Dioxide 21 mmol/L (22-29); Chloride 105 mmol/L (96-108); Estimated Glomerular Filt Rate 27; Glucose Random 92 mg/dL (60-115); Potassium 4.5 mmol/L (3.3-5.1); Sodium 136 mmol/L (135-145)
== END 2021-08-13 11:23 | disposition home or self-care (01) ==
LOC: HO.LAB 11:22
PROVIDERS: PCP Internal Medicine; Visit Provider Hospitalist
DX: N17.9 Acute kidney failure, unspecified (principal)
CPT/HCPCS: 36415; 80048

== ENCOUNTER 2021-08-27 11:18 | Outpatient (REF) | payer MEDICARE, MEDICAID, SELFPAY ==
[2021-08-27 12:18] LABS: Anion Gap 15 (12-20); Blood Urea Nitrogen 11 mg/dL (9-16); Calcium 9.6 mg/dL (8.4-10.2); Carbon Dioxide 25 mmol/L (22-29); Chloride 100 mmol/L (96-108); Estimated Glomerular Filt Rate > 60; Glucose Random 90 mg/dL (60-115); Sodium 136 mmol/L (135-145)
== END 2021-08-27 11:19 | disposition home or self-care (01) ==
LOC: HO.LAB 11:18
PROVIDERS: PCP Internal Medicine; Visit Provider Psychiatry & Neurology Psychiatry
DX: F42.2 Mixed obsessional thoughts and acts (principal)
CPT/HCPCS: 36415; 80048

== ENCOUNTER 2021-09-27 23:29 | Inpatient (IN) | payer MEDICARE, MEDICAID, SELFPAY ==
--- NOTE | ~2021-09-27 | CT_ITS ---
EXAMINATION: CT ABDOMEN AND PELVIS WITHOUT CONTRAST CLINICAL INFORMATION: Upper abdominal pain with vomiting. COMPARISON: No prior CT. TECHNIQUE: Multidetector volumetric imaging was performed from the superior aspect of the liver through the pubic symphysis. Sagittal and coronal reformatted images were obtained on the technologist's workstation. This CT examination was performed using dose optimization techniques as appropriate, variously including the following: *Automated exposure control *Adjustment of mA and/or kV according to patient size (this includes techniques or standardized protocols for targeted exams where dose is matched to indication/reason for exam; i.e. extremities or head) *Use of iterative reconstruction technique DLP: 915 mGy-cm FINDINGS: LUNG BASES: The visualized lung bases are unremarkable. LIVER, GALLBLADDER, AND BILIARY TREE: The liver is normal in size and shape with decreased attenuation. No focal hepatic lesion or biliary ductal dilatation is present. Cholecystectomy. PANCREAS: Unremarkable. SPLEEN: Unremarkable. ADRENAL GLANDS: Unremarkable. KIDNEYS AND URETERS: The kidneys are normal in size, shape, and attenuation. No hydronephrosis, hydroureter, or calculi seen. No perinephric stranding. BLADDER: Unremarkable. GASTROINTESTINAL TRACT: The stomach is unremarkable. Normal caliber small bowel. No obstruction. No colonic wall thickening or inflammatory change. Normal appendix. No free air or free fluid. ABDOMINAL WALL: No significant hernia is appreciated. Mild anasarca. LYMPH NODES: Small retroperitoneal lymph nodes are present. These are somewhat more prominent along the left iliac chain. The largest measures 1 cm short axis dimension on series 3 image 87. There is also mild stranding of the left inguinal region with lymph nodes present. VASCULAR: Normal caliber aorta with mild atherosclerotic calcification. PELVIC VISCERA: The uterus and adnexa are unremarkable. OSSEOUS STRUCTURES: Right total hip arthroplasty partially visualized. Avascular necrosis of the left femoral head with no acute abnormality. Vertebral body height and alignment maintained. CT/CT abdomen pelvis wo con IMPRESSION: No acute inflammatory change of the abdomen or pelvis. Hepatic steatosis. Mildly prominent lymph nodes along the left iliac chain and left inguinal region where there is inflammatory stranding. These are likely reactive. Fleischner guidelines were followed.
--- NOTE | ~2021-09-27 | XR_ITS ---
EXAMINATION: XR CHEST CLINICAL INFORMATION: Weakness COMPARISON: 06/10/2017 TECHNIQUE: Frontal view of the chest was obtained. FINDINGS: Cardiac leads overlie the chest. The lungs are well expanded. There is no focal consolidation, edema, or effusion. No pneumothorax. The cardiomediastinal silhouette is within normal limits. No acute osseous abnormality. XR/XR chest 1V IMPRESSION: Clear lungs.
--- NOTE | 2021-09-27 23:38 | ED_ITS ---
HPI - Nausea/Vomiting/Diarrhea General Chief complaint: Nausea/Vomiting/Diarrhea Stated complaint: nausea and vomiting Time Seen by Provider: 09/27/21 23:38 Source: patient Mode of arrival: EMS Limitations: no limitations History of Present Illness HPI Narrative: patient with history of anxiety started vomiting just few hours ago very anxious does get same complaints whenever she gets panic attacks a family member positive for COVID patient has not been vaccinated against COVID tested for COVID on 09/01 which was negative. patient states she does not feel good on arrival patient has low-grade temperature no diarrhea no cough no shortness of breath Related Data Home Medications Medication Instructions Recorded Confirmed albuterol sulfate 90 2 puff INHALATION Q4H PRN 08/02/21 08/02/21 mcg/actuation aerosol inhaler benztropine 0.5 mg tablet 0.5 mg PO DAILY 08/02/21 08/02/21 kgjadjxqni-huvjslvopzeda-eoy 1 tab PO BID PRN 08/02/21 08/02/21 feine 50 mg-325 mg-40 mg tablet cholecalciferol (vitamin D3) 50 mcg PO DAILY 08/02/21 08/02/21 50 mcg (2,000 unit) tablet (Vitamin D3) clomipramine 75 mg capsule 150 mg PO DAILY 08/02/21 08/02/21 colesevelam 625 mg tablet 1,250 mg PO BID 08/02/21 08/02/21 cranberry 1,000 mg capsule 4,200 mg PO DAILY 08/02/21 08/02/21 dexlansoprazole 60 mg 1 cap PO DAILY 08/02/21 08/02/21 capsule,biphase delayed release (Dexilant) docusate sodium 100 mg 1 cap PO DAILY 08/02/21 08/02/21 capsule famotidine 40 mg tablet 1 tab PO DAILY 08/02/21 08/02/21 ferrous sulfate 325 mg (65 325 mg PO DAILY 08/02/21 08/02/21 mg iron) tablet (iron) fexofenadine 180 mg tablet 180 mg PO DAILY 08/02/21 08/02/21 fluticasone propionate 50 1 spray INTRANASAL DAILY 08/02/21 08/02/21 PRN mcg/actuation nasal spray,suspension gabapentin 600 mg tablet 600 mg PO QID 08/02/21 08/02/21 haloperidol 5 mg tablet 7.5 mg PO DAILY 08/02/21 08/02/21 levothyroxine 175 mcg tablet 1 tab PO DAILY 08/02/21 08/02/21 lorazepam 1 mg tablet 1 mg PO QID 08/02/21 08/02/21 melatonin 10 mg tablet 10 mg PO BEDTIME PRN 08/02/21 08/02/21 methocarbamol 750 mg tablet 1 tab PO TID 08/02/21 08/02/21 montelukast 10 mg tablet 1 tab PO DAILY 08/02/21 08/02/21 oxycodone-acetaminophen 10 1 tab PO QID 08/02/21 08/02/21 mg-325 mg tablet quetiapine 100 mg tablet 1 tab PO BEDTIME 08/02/21 08/02/21 ropinirole 0.5 mg tablet 1 tab PO BEDTIME 08/02/21 08/02/21 Previous Rx's Medication Instructions Recorded amoxicillin 500 mg capsule 500 mg PO Q8H #18 cap 08/10/21 metoprolol tartrate 25 mg tablet 25 mg PO BID #60 tab 09/03/21 clonidine HCl 0.1 mg tablet 0.1 mg PO BID #180 tab 09/18/21 magnesium oxide 400 mg (241.3 mg 400 mg PO DAILY #30 tab 09/18/21 magnesium) tablet Allergies Allergy/AdvReac Type Severity Reaction Status Date / Time barium iodide [BARIUM Allergy Unknown UNKNOWN Verified 08/02/21 21:22 IODIDE] carrot [CARROTS] Allergy Unknown UNKOWN Verified 08/02/21 21: clonazepam [CLONAZEPAM] Allergy Unknown UNKNOWN Verified 08/02/21 21:22 fluoxetine [From PROZAC] Allergy Unknown UNKNOWN Verified 08/02/21 21:22 neris [NERIS] Allergy Unknown UNKNOWN Verified 08/02/21 21:22 lactose [LACTOSE] Allergy Unknown UNKNOWN Verified 08/02/21 21:22 latex [LATEX] Allergy Unknown UNKNOWN Verified 08/02/21 21:22 metoclopramide [From Allergy Unknown UNKNOWN Verified 08/02/21 21: REGLAN] morphine [MORPHINE] Allergy Unknown UNKNOWN Verified 08/02/21 21: oats [OATS] Allergy Unknown UNKNOWN Verified 08/02/21 21:22 peanut [PEANUT] Allergy Unknown UNKNOWN Verified 08/02/21 21:22 pepper (genus Capsicum) Allergy Unknown UNKNOWN Verified 08/02/21 21:22 [PEPPER] potato [POTATO] Allergy Unknown UNKNOWN Verified 08/02/21 21:22 red dye [RED DYE] Allergy Unknown UNKNOWN Verified 08/02/21 21:22 sumatriptan [From Allergy Unknown UNKNOWN Verified 08/02/21 21:22 IMITREX] tetanus and diphtheria Allergy Unknown HIVES Verified 08/02/21 21:22 toxoids [TETANUS AND DIPHTHERIA TOXOIDS] tomato [TOMATO] Allergy Unknown UNKNOWN Verified 08/02/21 21:22 tree nut [TREE NUT] Allergy Unknown UNKNOWN Verified 08/02/21 21:22 cephalexin Allergy Unknown Verified 08/02/21 21:22 AMBICA GUM Allergy Unknown UNKNOWN Uncoded 05/18/20 16:22 Review of Systems Verdana 4l Review of Systems: Yes all other systems are reviewed and Verdana 4d are negative PMFSH Past Medical History Medical History Anxiety and depression Avascular necrosis Chronic pain Diabetes Left against medical advice Restless leg syndrome Surgical History History of right hip replacement Family History Family History Father Non Hodgkin's lymphoma Social History Social History Household Members: Family Housing: Apartment Do you presently have visiting nurse or other home services: Yes (visiting nurse for wound care) Alcohol intake: never Patient Tobacco Use Status: Never used Tobacco Advance Directives: No Advance Directives Information Provided: No Patient : No service: No Physical Exam Verdana 4l Vital Signs: Verdana 4d Verdana 4d Vital Signs: Verdana 4d Verdana 4Bd Last Vital Signs Verdana 4d Finished Stock Inspector New 4d Finished Stock Inspector New 4d Temp 100.4 F 09/27/21 23:43 Finished Stock Inspector New 4d Pulse 139 H 09/27/21 23:43 Finished Stock Inspector New 4d Resp 20 09/27/21 23:43 BP 120/74 09/27/21 23:43 Pulse Ox 99 09/27/21 23:43 BMI result Body Mass Index 34.6 Appearance: Alert. Oriented X3. anxious Eyes: no pallor or icterus ENT: Pharynx normal. Oral Mucosa moist Neck: Normal inspection. Neck supple. CVS: Normal heart rate and rhythm. Pulses normal. Respiratory: No respiratory distress. Equal air entry bilateral, no wheezing/rales/rhonchi Abdomen: Soft and diffusely tender. Bowel sounds are present, no mass palpable, no CVA tenderness Skin: Skin warm and dry. Normal skin color. Normal skin turgor. Extremities: No lower extremity edema. No calf tenderness Neuro: Oriented X 3. MDM - Nausea/Vomiting/Diarrhea MDM Narrative Medical decision making narrative: patient with anxiety with the diffuse abdominal pain with vomiting slightly elevated WBC count and upper abdominal tenderness will get CT scan of the abdomen. Patient signed out to Dr. Louis pending labs and CT scan results Lab Data Attestation: I reviewed the patient's lab results. Result diagrams: 09/28/21 00:13 09/28/21 00:13 Labs: Lab Results 09/28/21 Range/Units 00:13 WBC 14.2 H (4.8-10.8) X10*3/uL RBC 3.97 L (4.20-5.50) X10*6/uL Hgb 10.9 L (12.0-16.0) g/dl Hct 33.0 L (37.0-47.0) % MCV 83.1 (80.0-98.0) fL MCH 27.5 (27.0-33.0) pg MCHC 33.0 (31.0-35.0) g/dl RDW 15.2 (11.0-16.0) % Plt Count 217 D (160-400) X10*3/uL MPV 8.9 L (9.4-12.3) fL Discharge Plan Discharge Clinical Impression: Gastroenteritis Prescriptions: No Action metoprolol tartrate 25 mg tablet 25 mg PO BID Qty: 60 1RF magnesium oxide 400 mg (241.3 mg magnesium) tablet 400 mg PO DAILY Qty: 30 3RF clonidine HCl 0.1 mg tablet 0.1 mg PO BID Qty: 180 0RF levothyroxine 175 mcg tablet 1 tab PO DAILY 0RF gabapentin 600 mg tablet 600 mg PO QID 0RF clomipramine 75 mg capsule 150 mg PO DAILY 0RF famotidine 40 mg tablet 1 tab PO DAILY 0RF quetiapine 100 mg tablet 1 tab PO BEDTIME 0RF xxkvtqlomx-awbgqwefjxmhr-czcp 50-325-40 mg tablet 1 tab PO BID PRN (Reason: Headache) 0RF methocarbamol 750 mg tablet 1 tab PO TID 0RF oxycodone-acetaminophen 10-325 mg tablet 1 tab PO QID 0RF ropinirole 0.5 mg tablet 1 tab PO BEDTIME 0RF docusate sodium 100 mg capsule 1 cap PO DAILY 0RF montelukast 10 mg tablet 1 tab PO DAILY 0RF lorazepam 1 mg tablet 1 mg PO QID 0RF fluticasone propionate 50 mcg/actuation spray,suspension 1 spray intranasal DAILY PRN (Reason: Allergic Symptoms) 0RF Dexilant 60 mg capsule,biphase delayed releas 1 cap PO DAILY 0RF benztropine 0.5 mg tablet 0.5 mg PO DAILY 0RF haloperidol 5 mg tablet 7.5 mg PO DAILY 0RF fexofenadine 180 mg Tablet 180 mg PO DAILY 0RF colesevelam 625 mg tablet 1,250 mg PO BID 0RF ferrous sulfate [iron] 325 mg (65 mg iron) Tablet 325 mg PO DAILY 0RF albuterol sulfate 90 mcg/actuation HFA aerosol inhaler 2 puff inhalation Q4H PRN (Reason: Shortness Of Breath) 0RF cranberry 1,000 mg Capsule 4,200 mg PO DAILY 0RF cholecalciferol (vitamin D3) [Vitamin D3] 50 mcg (2,000 unit) Tablet 50 mcg PO DAILY 0RF melatonin 10 mg Tablet 10 mg PO BEDTIME PRN (Reason: Insomnia) 0RF amoxicillin 500 mg Capsule 500 mg PO Q8H Qty: 18 0RF
[2021-09-27 23:43] VITALS: BP 120/74; BP 129/76; PULSE 139; PULSE 148; RESP 20; TEMP 38; O2SAT 98; O2SAT 99; BMI 34.6
[2021-09-27] MEDS: LORazepam 2 MG/ML VIAL IVPUSH (23:56)
[2021-09-27] MEDS: 0.9 % Sodium Chloride 1,000 ML 999 ML IV (23:56)
[2021-09-27] MEDS: ondansetron HCL 4 MG/2 ML VIAL IVPUSH (23:56)
[2021-09-28] VITALS (10 sets, daily range): BP systolic 97–152; BP diastolic 54–74; PULSE 113–130; RESP 17–21; TEMP 36.8–40.9; O2SAT 94–100
[2021-09-28 00:20] LABS: Basophils Percent Auto 0.3 % (0-2); Eosinophils Percent Auto 0.2 % (0-4); Hemoglobin 10.9 g/dl (12.0-16.0); Imm Gran Abs Auto 0.08 X10*3/uL (0.00-0.03); Imm Gran Pct Auto 0.6 % (0.0-0.4); Lymphocytes Absolute Auto 0.7 X10*3/uL (1.2-4.9); Lymphocytes Percent Auto 5.2 % (20-40); MANUAL DIFF FLAG SCAN; Mean Corpuscular Hemoglobin 27.5 pg (27.0-33.0); Mean Corpuscular Volume 83.1 fL (80.0-98.0); Mean Platelet Volume 8.9 fL (9.4-12.3); Monocytes Absolute Auto 0.4 X10*3/uL (0.1-1.2); Monocytes Percent Auto 2.7 % (2-11); Neutrophils Absolute Auto 12.9 x10*3/uL (2.0-8.3); Platelet Count 217 X10*3/uL (160-400); Red Blood Count 3.97 X10*6/uL (4.20-5.50); Red Cell Distribution Width 15.2 % (11.0-16.0); SCAN SMEAR FLAG 1; White Blood Count 14.2 X10*3/uL (4.8-10.8)
[2021-09-28 00:41] LABS: SLIDE REVIEW VERIFIED
[2021-09-28 00:43] LABS: COVID-19 Test Negative (Negative)
[2021-09-28 00:50] LABS: Alanine Aminotransferase 12 U/L (0-31); Albumin Level 3.8 g/dL (3.5-5.0); Alkaline Phosphatase 74 U/L (39-117); Anion Gap 17 (12-20); Aspartate Amino Transferase 24 U/L (5-31); Bilirubin Total 0.2 mg/dL (0.0-1.0); Blood Urea Nitrogen 3 mg/dL (9-16); Calcium 8.7 mg/dL (8.4-10.2); Carbon Dioxide 20 mmol/L (22-29); Chloride 99 mmol/L (96-108); Creatinine Clr Calc Pharmacy 131.8; Estimated Glomerular Filt Rate > 60; Glucose Random 198 mg/dL (60-115); Lipase 96 U/L (8-78); Sodium 132 mmol/L (135-145); Total Protein 6.4 g/dL (6.5-8.0)
[2021-09-28] MEDS: Acetaminophen 325 MG TABLET 650 MG PO ×3 (00:56→20:52)
[2021-09-28] MEDS: 0.9 % Sodium Chloride 1,000 ML 999 ML IV ×2 (00:56→02:56)
[2021-09-28] MEDS: Ibuprofen 600 MG TABLET PO (01:00)
[2021-09-28 01:43] LABS: Appearance Urine CLEAR; Color Urine YELLOW; Glucose Urine UA NEG (NEG); Leukocyte Esterase Urine NEG (NEG); Nitrite Urine NEG (NEG); PH 5.5 (5.0-8.0); Specific Gravity - Urine <= 1.005 (1.005-1.025); Urine Blood NEG (NEG); Urine Ketones NEG (NEG); Urine Protein NEG (NEG-TRACE)
[2021-09-28 01:44] LABS: UPreg QC Valid YES; Urine Pregnancy NEGATIVE (NEGATIVE)
[2021-09-28 02:05] LABS: Lactic Acid 6.2 mmol/L (0.5-2.0)
[2021-09-28] MEDS: Piperacillin Sodium/Tazobactam 3.375 GM in 0.9 % Sodium Chloride 50 ML IV ×3 (02:55→13:57)
[2021-09-28] MEDS: 0.9 % Sodium Chloride 500 ML IV (02:56)
--- NOTE | 2021-09-28 03:19 | PC.NURSE ---
pt returned from ct pt more relaxed and falling asleep.
[2021-09-28 03:38] LABS: Reflex Lactate? Lactic Acid Added
[2021-09-28 04:12] LABS: ~Lactic Acid-LAB USE ONLY 5.1 mmol/L (0.5-2.0)
--- NOTE | 2021-09-28 04:30 | PC.NURSE ---
pt receiving updraft for sat falling to 93%
[2021-09-28] MEDS: vancomycin HCL 1,250 MG in 0.9 % Sodium Chloride 250 ML 166.67 MG IV (04:36)
[2021-09-28 04:47] LABS: Influenza A PCR NEGATIVE (Negative); Influenza B PCR NEGATIVE (Negative); Resp Syncy Virus RNA Qual PCR NEGATIVE (Negative); SARS COV2 PCR INHOUSE NEGATIVE (Negative)
[2021-09-28 05:54] LABS: Reflex Lactate? 2 Y
[2021-09-28] MEDS: Acetaminophen 325 MG TABLET PO (06:02)
[2021-09-28] MEDS: Enoxaparin Sodium 40 MG/0.4 ML SYRINGE SUBCUT (06:03)
--- NOTE | 2021-09-28 06:31 | P.HPHOSP_ITS ---
History of Present Illness Date of Service: 09/28/21 Chief Complaint: panic attack This is a 31-year-old female with extensive past medical history including diabetes, GERD, depression, anxiety, chronic pain, hypothyroidism, restless leg syndrome who presents to the hospital today in anxious mood, reports that she had difficulty breathing, she had palpitations she was very anxious she was very worried, she recently discovered that a family member had tested positive for COVID, given that she is not vaccinated against COVID she was very anxious and worried and therefore came to the hospital. Patient was discharged from the hospital on 08/10 after she was found to be hyponatremic, and found to have sepsis from cellulitis/foot ulcer. She was at that time treated with IV vancomycin but developed amoxicillin toxicity, subsequently changed to Zosyn, and subsequently transitioned to mouth amoxicillin for 1 week. Patient reports compliance and that she completed her antibiotics. Patient reports that her left lower extremity redness is chronic but has an ulcer at the left 5th metatarsal, that has been there since last admission, foot MRI on 08/03 of the foot showed no evidence of osteomyelitis. The left lower extremity redness was found to be secondary to dermatitis and was recommended to use steroid cream which is not clear patient has been using it. On arrival to the ED patient found to have a temp of 105.7?, heart rate of 129, respiratory rate of 21, blood pressure of 152/74 satting 97 room air. Labs are significant for WBC count of 14.2, hemoglobin of 10.9 which is around her baseline, sodium of 132, lactic acid of 6.2, UA negative, COVID-19 negative Chest x-ray showed clear lungs Abdominal pelvic CT showed no acute inflammatory change of the abdomen or pelvis, but did find mildly prominent lymph nodes along the left iliac chain and left inguinal region where there is inflammatory stranding, these are likely reactive Patient started on IV antibiotics and admitted for further management Review of Systems Verdana 4l Review of Systems: Yes all other systems are reviewed and Verdana 4d are negative [facility] Medical History Anxiety and depression Avascular necrosis Chronic pain Diabetes Left against medical advice Restless leg syndrome Family History Father Non Hodgkin's lymphoma Surgical History History of right hip replacement Social History Household Members: Family Housing: Apartment Do you presently have visiting nurse or other home services: Yes (visiting nurse for wound care) Alcohol intake: never Patient Tobacco Use Status: Never used Tobacco Advance Directives: No Advance Directives Information Provided: No Patient : No service: No Meds Allergies Allergy/AdvReac Type Severity Reaction Status Date / Time barium iodide [BARIUM Allergy Unknown UNKNOWN Verified 08/02/21 21: IODIDE] carrot [CARROTS] Allergy Unknown UNKOWN Verified 08/02/21 21: clonazepam [CLONAZEPAM] Allergy Unknown UNKNOWN Verified 08/02/21 21: fluoxetine [From PROZAC] Allergy Unknown UNKNOWN Verified 08/02/21 21: neris [NERIS] Allergy Unknown UNKNOWN Verified 08/02/21 21: lactose [LACTOSE] Allergy Unknown UNKNOWN Verified 08/02/21 21: latex [LATEX] Allergy Unknown UNKNOWN Verified 08/02/21 21:22 metoclopramide [From Allergy Unknown UNKNOWN Verified 08/02/21 21: REGLAN] morphine [MORPHINE] Allergy Unknown UNKNOWN Verified 08/02/21 21: oats [OATS] Allergy Unknown UNKNOWN Verified 08/02/21 21:22 peanut [PEANUT] Allergy Unknown UNKNOWN Verified 08/02/21 21:22 pepper (genus Capsicum) Allergy Unknown UNKNOWN Verified 08/02/21 21: [PEPPER] potato [POTATO] Allergy Unknown UNKNOWN Verified 08/02/21 21:22 red dye [RED DYE] Allergy Unknown UNKNOWN Verified 08/02/21 21:22 sumatriptan [From Allergy Unknown UNKNOWN Verified 08/02/21 21:22 IMITREX] tetanus and diphtheria Allergy Unknown HIVES Verified 08/02/21 21:22 toxoids [TETANUS AND DIPHTHERIA TOXOIDS] tomato [TOMATO] Allergy Unknown UNKNOWN Verified 08/02/21 21:22 tree nut [TREE NUT] Allergy Unknown UNKNOWN Verified 08/02/21 21:22 cephalexin Allergy Unknown Verified 08/02/21 21: AMBICA GUM Allergy Unknown UNKNOWN Uncoded 05/18/20 16:22 Active Medications: Current Medications Acetaminophen (Acetaminophen 325 Mg Tablet) 650 mg PO Q6H PRN PRN Reason: Pain, Mild (Pain Scale 1-3) Docusate Sodium (Docusate Sodium 100 Mg Capsule) 100 mg PO DAILY PRN PRN Reason: Constipation Enoxaparin Sodium (Enoxaparin Sodium 40 Mg/0.4 Ml Syringe) 40 mg SUBCUT Q24H [facility] Last Admin: 09/28/21 06:03 Dose: 40 mg Documented by: Piperacillin Sod/Tazobactam (Sod 3.375 gm/ Sodium Chloride) 50 mls @ 100 mls/hr IV Q6H [facility] Ondansetron HCl (Ondansetron Hcl 4 Mg/2 Ml Vial) 4 mg IVPUSH Q8H PRN PRN Reason: Nausea and Vomiting Pharmacy Consult (Consult Rx Vancomycin Dosing) 1 each MISCELLANE DAILY PRN PRN Reason: Consult order Sodium Chloride (0.9 % Sodium Chloride Flush 3 Ml Syringe) 3 ml IVFLUSH QSHIFT [facility] Home Medications Medication Instructions Recorded Confirmed Last Taken Type albuterol sulfate 2 puff 08/02/21 09/28/21 09/27/21 History 90 mcg/actuation INHALATION Q4H PRN aerosol inhaler benztropine 0.5 0.5 mg PO DAILY 08/02/21 09/28/21 09/27/21 History mg tablet butalbital-acetam 1 tab PO BID PRN 08/02/21 09/28/21 09/27/21 History inophen-caffeine 50 mg-325 mg-40 mg tablet cholecalciferol 50 mcg PO DAILY 08/02/21 09/28/21 09/27/21 History (vitamin D3) 50 mcg (2,000 unit) tablet (Vitamin D3) clomipramine 75 150 mg PO DAILY 08/02/21 09/28/21 09/27/21 History mg capsule colesevelam 625 1,250 mg PO BID 08/02/21 09/28/21 09/27/21 History mg tablet cranberry 1,000 4,200 mg PO 08/02/21 09/28/21 09/27/21 History mg capsule DAILY dexlansoprazole 1 cap PO DAILY 08/02/21 09/28/21 09/27/21 History 60 mg capsule,biphase delayed release (Dexilant) docusate sodium 1 cap PO DAILY 08/02/21 09/28/21 09/27/21 History 100 mg capsule famotidine 40 mg 1 tab PO DAILY 08/02/21 09/28/21 09/27/21 History tablet ferrous sulfate 325 mg PO DAILY 08/02/21 09/28/21 09/27/21 History 325 mg (65 mg iron) tablet (iron) fexofenadine 180 180 mg PO DAILY 08/02/21 09/28/21 09/27/21 History mg tablet fluticasone 1 spray 08/02/21 09/28/21 09/27/21 History propionate 50 INTRANASAL DAILY PRN mcg/actuation nasal spray,suspension gabapentin 600 mg 600 mg PO QID 08/02/21 09/28/21 09/27/21 History tablet haloperidol 5 mg 7.5 mg PO DAILY 08/02/21 09/28/21 09/27/21 History tablet levothyroxine 175 1 tab PO DAILY 08/02/21 09/28/21 09/27/21 History mcg tablet lorazepam 1 mg 1 mg PO QID 08/02/21 09/28/21 09/27/21 History tablet melatonin 10 mg 10 mg PO BEDTIME 08/02/21 09/28/21 09/27/21 History tablet PRN methocarbamol 750 1 tab PO TID 08/02/21 09/28/21 09/27/21 History mg tablet montelukast 10 mg 1 tab PO DAILY 08/02/21 09/28/21 09/27/21 History tablet oxycodone-acetami 1 tab PO QID 08/02/21 09/28/21 09/27/21 History nophen 10 mg-325 mg tablet quetiapine 100 mg 1 tab PO BEDTIME 08/02/21 09/28/21 09/27/21 History tablet ropinirole 0.5 mg 1 tab PO BEDTIME 08/02/21 09/28/21 09/27/21 History tablet escitalopram 30 mg PO DAILY 09/28/21 09/28/21 09/27/21 History oxalate 20 mg tablet Physical Exam Verdana 4l Vital Signs and Narrative: Verdana 4d Verdana 4d Vital Signs: Verdana 4d Verdana 4Bd Last Vital Signs Verdana 4d [employer] New 4d [employer] New 4d Temp 101.2 F H 09/28/21 04:47 [employer] New 4d Pulse 116 H 09/28/21 05:58 Mik New 4d Resp 20 09/28/21 05:58 BP 108/57 L 09/28/21 05:58 Pulse Ox 100 09/28/21 05:58 BMI result Body Mass Index 34.6 Const: General: cooperative and no acute distress Orientation/consciousness: patient oriented x3 Eyes: General: appearance normal, both eyes and all related structures Pupils: Equal, round and reactive pupils present Resp: Effort & Inspection: normal respiratory effort Auscultation: clear to auscultation bilaterally Cardio: Rate: regular rate Rhythm: regular rhythm GI: Palpation (GI): Soft to palpation Auscultation: normal bowel sounds Skin: General skin exam: no rashes or lesions noted Neuro: General: patient oriented x3 Cranial nerves: Yes Equal, round and reactive pupils present Extrem: General: Yes normal to inspection and Yes no pedal edema Psych: Other: appears very anxious Results Labs CBC and Chem 7: 09/28/21 00:13 09/28/21 00:13 Labs: Laboratory Results - last 24 hr 09/28/21 09/28/21 09/28/21 00:13 00:13 00:13 MCV 83.1 MCH 27.5 MCHC 33.0 RDW 15.2 Plt Count 217 D MPV 8.9 L Immature Gran % (Auto) 0.6 H Neut % (Auto) 91.0 H Lymph % (Auto) 5.2 L [place] % (Auto) 2.7 Eos % (Auto) 0.2 Baso % (Auto) 0.3 Lymph # (Auto) 0.7 L [place] # (Auto) 0.4 Eos # (Auto) 0.0 Baso # (Auto) 0.0 Abs Immat Gran (auto) 0.08 H Absolute Neuts (auto) 12.9 H Absolute Nucleated RBC 0.000 Nucleated RBC % (auto) 0.0 Smear Tech's Comments VERIFIED Anion Gap 17 Estim Creat Clear Calc 131.8 Estimated GFR > 60 Random Glucose 198 H Lactic Acid Lactic Acid F/U @ 2Hr Calcium 8.7 D Total Bilirubin 0.2 AST 24 ALT 12 Alkaline Phosphatase 74 D Total Protein 6.4 L Albumin 3.8 Lipase 96 H Urine Color Urine Appearance Urine pH Ur Specific [place] Urine Protein Urine Glucose (UA) Urine Ketones Urine Blood Urine Nitrite Ur Leukocyte Esterase Urine Test COVID-19 (ULISES) Negative COVID-19 Clin Com See Note Influenza Type A (PCR) Influenza Type B (PCR) RSV RNA Qual (PCR) SARS-CoV-2 RNA (RT-PCR) 09/28/21 09/28/21 09/28/21 01:19 01:19 01:19 MCV MCH MCHC RDW Plt Count MPV Immature Gran % (Auto) Neut % (Auto) Lymph % (Auto) [place] % (Auto) Eos % (Auto) Baso % (Auto) Lymph # (Auto) [place] # (Auto) Eos # (Auto) Baso # (Auto) Abs Immat Gran (auto) Absolute Neuts (auto) Absolute Nucleated RBC Nucleated RBC % (auto) Smear Tech's Comments Anion Gap Estim Creat Clear Calc Estimated GFR Random Glucose Lactic Acid 6.2 H* Lactic Acid F/U @ 2Hr Calcium Total Bilirubin AST ALT Alkaline Phosphatase Total Protein Albumin Lipase Urine Color YELLOW Urine Appearance CLEAR Urine pH 5.5 Ur Specific [place] <= 1.005 Urine Protein NEG Urine Glucose (UA) NEG Urine Ketones NEG Urine Blood NEG Urine Nitrite NEG Ur Leukocyte Esterase NEG Urine Test NEGATIVE COVID-19 (ULISES) COVID-19 Clin Com Influenza Type A (PCR) Influenza Type B (PCR) RSV RNA Qual (PCR) SARS-CoV-2 RNA (RT-PCR) 09/28/21 09/28/21 Unknown Unknown MCV MCH MCHC RDW Plt Count MPV Immature Gran % (Auto) Neut % (Auto) Lymph % (Auto) [place] % (Auto) Eos % (Auto) Baso % (Auto) Lymph # (Auto) [place] # (Auto) Eos # (Auto) Baso # (Auto) Abs Immat Gran (auto) Absolute Neuts (auto) Absolute Nucleated RBC Nucleated RBC % (auto) Smear Tech's Comments Anion Gap Estim Creat Clear Calc Estimated GFR Random Glucose Lactic Acid Lactic Acid F/U @ 2Hr 5.1 H* Calcium Total Bilirubin AST ALT Alkaline Phosphatase Total Protein Albumin Lipase Urine Color Urine Appearance Urine pH Ur Specific [place] Urine Protein Urine Glucose (UA) Urine Ketones Urine Blood Urine Nitrite Ur Leukocyte Esterase Urine Test COVID-19 (ULISES) COVID-19 Clin Com Influenza Type A (PCR) NEGATIVE Influenza Type B (PCR) NEGATIVE RSV RNA Qual (PCR) NEGATIVE SARS-CoV-2 RNA (RT-PCR) NEGATIVE Imaging Radiologist's Impressions: Impressions Abdomen/Pelvis CT 09/28/21 03:06 IMPRESSION: No acute inflammatory change of the abdomen or pelvis. Hepatic steatosis. Mildly prominent lymph nodes along the left iliac chain and left inguinal region where there is inflammatory stranding. These are likely reactive. Fleischner guidelines were followed. Chest X-Ray 09/28/21 03:11 IMPRESSION: Clear lungs. Assessment and Plan (1) Sepsis: Status: Acute (2) Fever: Status: Acute (3) Acidosis, lactic: Status: Acute Plan 31-year-old female with extensive past medical history who presents to the hospital complaining of shortness of breath found to be having sepsis # sepsis -febrile, tachycardia, tachypnea, has leukocytosis - unclear etiology, although has a left 5th metatarsal ulcer, as well as left lower extremity erythema both are chronic, and were evaluated in August and patient was treated with IV antibiotics - MRI of the left foot showed no osteomyelitis in August - chest x-ray and abdominal CT are negative although abdominal CT is showing reactive enlarged lymph nodes - at this time will obtain ESR and CRP - consult infectious disease # lactic acidosis - likely secondary to above - IV fluids - trend #? diabetes -? slightly hyperglycemic on arrival -? will start her on low-dose sliding scale insulin, diabetic diet, pock q.i.d. a.c. #? multiple psych issues -? at this time will ? Hold her antidepressants given her hyponatremia pending further recommendation by nephrology #? hypothyroidism -? continue levothyroxine DVT ppx: Lovenox Quality Stroke Does the patient have a stroke diagnosis?: No VTE Prior VTE?: No VTE Risk Level:: Medical - moderate - high VTE Device Contraindication: Treatment Not Indicated VTE Drug Contraindication: N/A - Med Ordered
[2021-09-28] MEDS: 0.9 % Sodium Chloride 1,000 ML 100 ML IVCONT ×2 (06:58→16:21)
[2021-09-28 07:03] LABS: Glucose, Whole Blood 191 mg/dL (60-115)
[2021-09-28 07:26] LABS: Basophils Percent Auto 0.2 % (0-2); Hematocrit 30.7 % (37.0-47.0); Hemoglobin 9.7 g/dl (12.0-16.0); Imm Gran Abs Auto 0.14 X10*3/uL (0.00-0.03); Imm Gran Pct Auto 0.9 % (0.0-0.4); Lymphocytes Absolute Auto 0.7 X10*3/uL (1.2-4.9); Lymphocytes Percent Auto 4.6 % (20-40); MANUAL DIFF FLAG SCAN; Mean Corpuscular HGB Conc 31.6 g/dl (31.0-35.0); Mean Corpuscular Hemoglobin 27.4 pg (27.0-33.0); Mean Corpuscular Volume 86.7 fL (80.0-98.0); Mean Platelet Volume 9.2 fL (9.4-12.3); Monocytes Absolute Auto 0.4 X10*3/uL (0.1-1.2); Monocytes Percent Auto 2.8 % (2-11); Neutrophils Absolute Auto 13.8 x10*3/uL (2.0-8.3); Neutrophils Percent Auto 91.5 % (45-73); Platelet Count 180 X10*3/uL (160-400); Red Blood Count 3.54 X10*6/uL (4.20-5.50); Red Cell Distribution Width 15.5 % (11.0-16.0); SCAN SMEAR FLAG 1; White Blood Count 15.1 X10*3/uL (4.8-10.8)
[2021-09-28 07:42] LABS: Anion Gap 19 (12-20); Blood Urea Nitrogen 4 mg/dL (9-16); Calcium 7.6 mg/dL (8.4-10.2); Carbon Dioxide 13 mmol/L (22-29); Chloride 108 mmol/L (96-108); Creatinine Clr Calc Pharmacy 139.1; Estimated Glomerular Filt Rate > 60; Glucose Random 189 mg/dL (60-115); Potassium 4.5 mmol/L (3.3-5.1); Sodium 135 mmol/L (135-145)
[2021-09-28 07:46] LABS: ~Lactic Acid-LAB USE ONLY 6.3 mmol/L (0.5-2.0)
[2021-09-28] MEDS: LORazepam 2 MG/ML VIAL 1 MG IVPUSH (07:48)
[2021-09-28 07:59] LABS: C Reactive Protein 12.17 mg/dL (< or = 0.50)
[2021-09-28 08:29] LABS: Erythrocyte Sedimentation Rate 23 MM/HR (0-20)
--- NOTE | 2021-09-28 09:11 | PHA.MEDREC ---
Pharmacy Consult ? Medication Reconciliation Pharmacy has completed the medication reconciliation. Patient had medication list form 2019. I updated the list based on the claim history. Spoke with patient's mom Mireille on the phone. She confirmed medications that were no on the list from home as well as update directions on medication that were questionable. Vee Slaughter, PharmD
[2021-09-28 11:43] LABS: Glucose, Whole Blood 159 mg/dL (60-115)
--- NOTE | 2021-09-28 11:44 | MHC.CM.PN ---
Addendum entered by Nimisha Ruiz 09/28/21 11:54: CM RECEIVED A MESSAGE FROM [facility], THEY ARE UNABLE TO ACCEPT PT DUE TO A HISTORY OF NON-COMPLIANCE Original Note: CM ATTEMPTED TO MEET WITH PT WHO WAS SLEEPING AND DID NOT RESPOND TO VERBAL STIMULI CM CALLED PTS MOTHER, LEXIE ([phone]) WHO CONFIRMS THE PT LIVES WITH HER AND HAS NO SERVICES IN THE HOME. SHE REPORTS THE PT IS MOSTLY INDEPENDENT HOWEVER THEY HAVE TO RELY ON FAMILY AND FRIENDS FOR TRANSPORTATION LEXIE IS DISABLED. LEXIE REPORTS THE PT USES A CANE OR WALKER AND HAS A RAISED TOILET SEAT BECAUSE OF HER HIP. SHE REPORTS THE PT RECENTLY HAD A TOTAL HIP REPLACEMENT AND SHE IS WORRIED THAT THERE IS AN INFECTION IN THAT SITE. DONNA AGREED TO PASS THE CONCERN ONTO THE HOSPITALIST DURING ROUNDS (DONE). LEXIE CONFIRMS THE PTS PCP IS MEHUL WADE, SHE ALSO BELIEVES THERE IS A HCP ON FILE AT HIS OFFICE. LEXIE REPORTS NEITHER SHE NOR THE PT RECEIVED THE COVID VACCINES. SHE REPORTS THEY WERE CONCERNED ABOUT HAVING ADVERSE REACTIONS THEY ARE BOTH ALLERGIC TO SO MANY THINGS. IMM DELIVERED VIA T/C, ORIGINAL WAS LEFT AT BEDSIDE PER DISCUSSION, COPY SENT TO [facility] CURRENT DC PLAN IS HOME VS HOME WITH [facility] REFERRAL MADE TO [facility] PT HAS HAD THEM IN THE PAST AND PTS MOTHER INDICATED THEY WOULD BE PREFERRED LEXIE BELIEVES HER SON-IN-LAW WILL PROVIDE TRANSPORTATION AT DC
[2021-09-28] MEDS: ondansetron HCL 4 MG/2 ML VIAL IVPUSH (12:14)
--- NOTE | 2021-09-28 12:51 | PM.EVENT ---
Event Note Date of Service: 09/28/21 Event Note: 31-year-old female with extensive past medical history including diabetes, GERD, depression, anxiety, chronic pain, hypothyroidism, restless leg syndrome who presents to the hospital today in anxious mood, reports that she had difficulty breathing, she had palpitations she was very anxious she was very worried, she recently discovered that a family member had tested positive for COVID, given that she is not vaccinated against COVID she was very anxious and worried and therefore came to the hospital.? Patient was discharged from the hospital on 08/10 after she was found to be hyponatremic, and found to have sepsis from cellulitis/foot ulcer.? She was at that time treated with IV vancomycin but developed amoxicillin toxicity, subsequently changed to Zosyn, and subsequently transitioned to mouth amoxicillin for 1 week.? Patient reports compliance and that she completed her antibiotics.? Patient reports that her left lower extremity redness is chronic but has an ulcer at the left 5th metatarsal, that has been there since last admission, foot MRI on 08/03 of the foot showed no evidence of osteomyelitis. The left lower extremity redness was found to be secondary to dermatitis and was recommended to use steroid cream which is not clear patient has been using it. On arrival to the ED patient found to have a temp of 105.7?, heart rate of 129, respiratory rate of 21, blood pressure of 152/74 satting 97 room air. Labs are significant for WBC count of 14.2, hemoglobin of 10.9 which is around her baseline, sodium of 132, lactic acid of 6.2, UA negative, COVID-19 negative Chest x-ray showed clear lungs Abdominal pelvic CT showed no acute inflammatory change of the abdomen or pelvis, but did find mildly prominent lymph nodes along the left iliac chain and left inguinal region where there is inflammatory stranding, these are likely reactive 31-year-old female with extensive past medical history who presents to the hospital complaining of shortness of breath, anxiety and palpitation on examination patient awake alert less anxious than on admission not complaining of cough, no shortness of breath no chest pain denies nausea, vomiting or diarrhea Exam General no acute distress. CVS regular rate rhythm, Respiratory lungs clear to auscultation, no respiratory distress Gastrointestinal abdomen soft, nontender, bowel sounds audible Extremities no edema. Neuro nonfocal Skin left lower extremity, hyperemia and warmth no tenderness on palpation, left 5th small toe ulcer, well-healed with no fluctuation no drainage # sepsis likely due to left lower extremity cellulitis, no other source of infection found met sepsis criteria due to fever tachycardia tachypnea and leukocytosis lactic acid 6.3 trending down to 5.1, CRP 12.17 patient treated for left foot cellulitis and left 5th metatarsal joint ulcer in August 2021 MRI of foot at that time showed no osteomyelitis UA negative,chest x-ray, and abdominal CT are negative except showing reactive enlarged lymph nodes likely from cellulitis continue IV Zosyn, follow lactic acid,await ID input # lactic acidosis likely secondary to above,cont. IV fluids, follow level #? diabetes continue diabetic diet insulin sliding scale on glipizide at home #? multiple psych issues resume all home medication except hold Lexapro that was discontinued last admission due to hyponatremia #? hypothyroidism -? continue levothyroxine # RLS - continue ropinirole # hypertension soft blood pressure will hold clonidine and metoprolol, resume medications if blood pressure allows. # DVT prophylaxis with Lovenox
[2021-09-28] MEDS: LORazepam 1 MG TABLET PO ×3 (13:57→20:20)
[2021-09-28] MEDS: HaloperidoL 0.5 MG TABLET 2.5 MG PO (13:58)
--- NOTE | 2021-09-28 14:19 | PC.NURSE ---
pt requiring much attention from this rn this am, frequently dry heaving and appearing to have panic attacks. sts having pain from recent surgery, medicated per emar. pt has remained nauseous although receiving antiemetics, provider aware. holding prn po pain medication until pt ceases dry heaving and vomiting.
[2021-09-28] MEDS: Gabapentin 600 MG TABLET PO ×2 (16:20→23:17)
[2021-09-28] MEDS: oxyCODONE HCl Immed Release 5 MG TABLET PO (16:20)
[2021-09-28 16:36] LABS: Glucose, Whole Blood 147 mg/dL (60-115)
--- NOTE | 2021-09-28 16:38 | P.CNID_ITS ---
History of Present Illness Data of Consult Service Date: 09/28/21 Requesting physician: Irasema Jay Primary Care Provider: Jeovanny Ford MD HPI Reason for consult: left leg red She presents with abrasion LLE on foot and erythema concerns going up leg I had seen her before for same problem 08/2021 She has no fever or chills Review of Systems Verdana 4l Review of Systems: Yes all other systems are reviewed and Verdana 4d are negative PMFSH Past Medical History Medical History Anxiety and depression Avascular necrosis Chronic pain Diabetes Left against medical advice Restless leg syndrome Family History Family History Father Non Hodgkin's lymphoma Family history: reviewed and not pertinent Surgical History Surgical History History of right hip replacement Social History Social History Household Members: Other Household Members Other:: MOTHER Housing: Apartment Do you presently have visiting nurse or other home services: Yes (visiting nurs e for wound care) Alcohol intake: never Patient Tobacco Use Status: Never used Tobacco service: No Current occupational status: unemployed Meds Allergies Allergy/AdvReac Type Severity Reaction Status Date / Time barium iodide [BARIUM Allergy Unknown UNKNOWN Verified 08/02/21 21:22 IODIDE] carrot [CARROTS] Allergy Unknown UNKOWN Verified 08/02/21 21: clonazepam [CLONAZEPAM] Allergy Unknown UNKNOWN Verified 08/02/21 21:22 fluoxetine [From PROZAC] Allergy Unknown UNKNOWN Verified 08/02/21 21:22 neris [NERIS] Allergy Unknown UNKNOWN Verified 08/02/21 21:22 lactose [LACTOSE] Allergy Unknown UNKNOWN Verified 08/02/21 21:22 latex [LATEX] Allergy Unknown UNKNOWN Verified 08/02/21 21:22 metoclopramide [From Allergy Unknown UNKNOWN Verified 08/02/21 21: REGLAN] morphine [MORPHINE] Allergy Unknown UNKNOWN Verified 08/02/21 21:22 oats [OATS] Allergy Unknown UNKNOWN Verified 08/02/21 21:22 peanut [PEANUT] Allergy Unknown UNKNOWN Verified 08/02/21 21:22 pepper (genus Capsicum) Allergy Unknown UNKNOWN Verified 08/02/21 21:22 [PEPPER] potato [POTATO] Allergy Unknown UNKNOWN Verified 08/02/21 21:22 red dye [RED DYE] Allergy Unknown UNKNOWN Verified 08/02/21 21:22 sumatriptan [From Allergy Unknown UNKNOWN Verified 08/02/21 21:22 IMITREX] tetanus and diphtheria Allergy Unknown HIVES Verified 08/02/21 21:22 toxoids [TETANUS AND DIPHTHERIA TOXOIDS] tomato [TOMATO] Allergy Unknown UNKNOWN Verified 08/02/21 21:22 tree nut [TREE NUT] Allergy Unknown UNKNOWN Verified 08/02/21 21:22 cephalexin Allergy Unknown Verified 08/02/21 21:22 AMBICA GUM Allergy Unknown UNKNOWN Uncoded 05/18/20 16:22 Active Medications: Current Medications Acetaminophen (Acetaminophen 325 Mg Tablet) 650 mg PO Q6H PRN PRN Reason: Pain, Mild (Pain Scale 1-3) Last Admin: 09/28/21 13:57 Dose: 650 mg Documented by: Albuterol Sulfate (Albuterol Sulfate 90 Mcg 8 Gm Inhaler) 2 puff INHALE Q4H PRN PRN Reason: Shortness Of Breath Benztropine Mesylate (Benztropine Mesylate 0.5 Mg Tablet) 0.5 mg PO DAILY [facility] Cholestyramine Resin (Cholestyramine (With Sugar) 4 Gm Powd.Pack) 4 gm PO BID [facility] Clomipramine HCl (Clomipramine Hcl 25 Mg Capsule) 150 mg PO BEDTIME [facility] Cyclobenzaprine HCl (Cyclobenzaprine Hcl 10 Mg Tablet) 10 mg PO BID [facility] Dextrose (Dextrose 50 % 25 Gm/50 Ml Syringe) 25 gm IVPUSH Q15M PRN; Protocol PRN Reason: per Hypoglycemia Standing Ord. Docusate Sodium (Docusate Sodium 100 Mg Capsule) 100 mg PO DAILY PRN PRN Reason: Constipation Docusate Sodium (Docusate Sodium 100 Mg Capsule) 100 mg PO DAILY [facility] Enoxaparin Sodium (Enoxaparin Sodium 40 Mg/0.4 Ml Syringe) 40 mg SUBCUT Q24H [facility] Last Admin: 09/28/21 06:03 Dose: 40 mg Documented by: Famotidine (Famotidine 20 Mg Tablet) 40 mg PO DAILY [facility] Fluticasone Propionate (Fluticasone Propionate Nasal 16 Gm Universal) 1 spray NOSTRIL-B DAILY PRN PRN Reason: Allergic Symptoms Gabapentin (Gabapentin 600 Mg Tablet) 600 mg PO 0500,1100,1700,2300 [facility] Last Admin: 09/28/21 16:20 Dose: 600 mg Documented by: Glucose (Glucose Gel 15 Gm Gel..Gram.) 15 gm PO Q15M PRN; Protocol PRN Reason: per Hypoglycemia Standing Ord. Haloperidol (Haloperidol 5 Mg Tablet) 2.5 mg PO TID [facility] Last Admin: 09/28/21 15:17 Dose: Not Given Documented by: Piperacillin Sod/Tazobactam (Sod 3.375 gm/ Sodium Chloride) 50 mls @ 100 mls/hr IV Q6H [facility] Last Infusion: 09/28/21 15:27 Dose: Infused Documented by: Sodium Chloride (Ns) 1,000 mls @ 100 mls/hr IVCONT .Q10H [facility] Last Admin: 09/28/21 16:21 Dose: 100 mls/hr Documented by: Insulin Human Lispro (Insulin Lispro 100 Unit/Ml 3 Ml Vial) 0 unit SUBCUT QIDACHS [facility]; Protocol Last Admin: 09/28/21 12:15 Dose: Not Given Documented by: Levothyroxine Sodium (Levothyroxine Sodium 175 Mcg Tablet) 175 mcg PO DAILY@0630 [facility] Lorazepam (Lorazepam 1 Mg Tablet) 1 mg PO DAILY PRN PRN Reason: Anxiety Lorazepam (Lorazepam 1 Mg Tablet) 1 mg PO TID [facility] Last Admin: 09/28/21 13:57 Dose: 1 mg Documented by: Magnesium Oxide (Magnesium Oxide 400 Mg Tablet) 400 mg PO DAILY [facility] Melatonin (Melatonin 3 Mg Tablet) 9 mg PO BEDTIME PRN PRN Reason: Insomnia Metoprolol Tartrate (Metoprolol Tartrate 25 Mg Tablet) 25 mg PO BID [facility]; Protocol Montelukast Sodium (Montelukast Sodium 10 Mg Tablet) 10 mg PO DAILY [facility] Non-Formulary Medication (Drospirenone-Ethinyl Estradiol [Deneen]) 1 tab PO PAULA LY [facility] Omeprazole (Omeprazole 20 Mg Capsule.Dr) 20 mg PO DAILY@0630 [facility] Ondansetron HCl (Ondansetron Hcl 4 Mg/2 Ml Vial) 4 mg IVPUSH Q8H PRN PRN Reason: Nausea and Vomiting Last Admin: 09/28/21 12:14 Dose: 4 mg Documented by: Oxycodone HCl (Oxycodone Hcl Immed Release 5 Mg Tablet) 5 mg PO Q6H PRN PRN Reason: Pain, Severe (Pain Scale 7-10) Last Admin: 09/28/21 16:20 Dose: 5 mg Documented by: Quetiapine Fumarate (Quetiapine Fumarate 50 Mg Tablet) 50 mg PO BEDTIME [facility] Ropinirole HCl (Ropinirole Hcl 0.25 Mg Tablet) 0.25 mg PO BEDTIME [facility] Sodium Chloride (0.9 % Sodium Chloride Flush 3 Ml Syringe) [address] [facility] Last Admin: 09/28/21 15:17 Dose: Not Given Documented by: Vitamin D (Cholecalciferol (Vitamin D3) 25 Mcg Tablet) 50 mcg PO DAILY [facility] Home Medications Medication Instructions Recorded Confirmed Last Taken Type albuterol sulfate 2 puff 08/02/21 09/28/21 Unknown History 90 mcg/actuation INHALATION Q4H PRN aerosol inhaler benztropine 0.5 0.5 mg PO DAILY 08/02/21 09/28/21 09/27/21 History mg tablet cholecalciferol 50 mcg PO DAILY 08/02/21 09/28/21 09/27/21 History (vitamin D3) 50 mcg (2,000 unit) tablet (Vitamin D3) clomipramine 75 150 mg PO 08/02/21 09/28/21 09/26/21 History mg capsule BEDTIME colesevelam 625 2,500 mg PO BID 08/02/21 09/28/21 09/27/21 History mg tablet cranberry 1,000 4,200 mg PO 08/02/21 09/28/21 09/27/21 History mg capsule DAILY dexlansoprazole 1 cap PO DAILY 08/02/21 09/28/21 09/27/21 History 60 mg capsule,biphase delayed release (Dexilant) docusate sodium 1 cap PO DAILY 08/02/21 09/28/21 09/27/21 History 100 mg capsule famotidine 40 mg 1 tab PO DAILY 08/02/21 09/28/21 09/27/21 History tablet ferrous sulfate 325 mg PO DAILY 08/02/21 09/28/21 09/27/21 History 325 mg (65 mg iron) tablet (iron) fexofenadine 180 180 mg PO DAILY 08/02/21 09/28/21 09/27/21 History mg tablet fluticasone 1 spray 08/02/21 09/28/21 Unknown History propionate 50 INTRANASAL DAILY PRN mcg/actuation nasal spray,suspension gabapentin 600 mg 600 mg PO 08/02/21 09/28/21 09/27/21 History tablet 0500,1100,1700,2 300 haloperidol 5 mg 2.5 mg PO TID 08/02/21 09/28/21 09/27/21 History tablet levothyroxine 175 1 tab PO 08/02/21 09/28/21 09/27/21 History mcg tablet DAILY@0630 lorazepam 1 mg 1 mg PO TID 08/02/21 09/28/21 09/27/21 History tablet melatonin 10 mg 10 mg PO BEDTIME 08/02/21 09/28/21 09/27/21 History tablet PRN methocarbamol 750 1 tab PO TID 08/02/21 09/28/21 09/27/21 History mg tablet montelukast 10 mg 1 tab PO DAILY 08/02/21 09/28/21 09/27/21 History tablet oxycodone-acetami 2 tab PO QID 08/02/21 09/28/21 09/27/21 History nophen 10 mg-325 mg tablet quetiapine 100 mg 50 mg PO BEDTIME 08/02/21 09/28/21 09/26/21 History tablet ropinirole 0.5 mg 0.5 tab PO 08/02/21 09/28/21 09/26/21 History tablet BEDTIME clonidine HCl 0.1 0.1 tab PO BID 09/28/21 09/28/21 09/27/21 History mg tablet drospirenone 3 1 tab PO DAILY 09/28/21 09/28/21 09/27/21 History mg-ethinyl estradiol 0.03 mg tablet (Deneen) escitalopram 30 mg PO DAILY 09/28/21 09/28/21 09/27/21 History oxalate 20 mg tablet glipizide 5 mg 5 mg PO DAILY 09/28/21 09/28/21 09/27/21 History tablet, extended release 24 hr lorazepam 1 mg 1 mg PO DAILY 09/28/21 09/28/21 Unknown History tablet PRN ondansetron HCl 8 8 mg PO BID PRN 09/28/21 09/28/21 09/27/21 History mg tablet Physical Exam Verdana 4l Vital Signs: Verdana 4d Verdana 4d Vital Signs: Verdana 4d Verdana 4Bd Last Vital Signs Verdana 4d Forming Department End Finder New 4d Forming Department End Finder New 4d Temp 98.2 F 09/28/21 16:00 Forming Department End Finder New 4d Pulse 120 H 09/28/21 16:00 Forming Department End Finder New 4d Resp 17 09/28/21 16:00 BP 115/65 09/28/21 16:00 Pulse Ox 100 09/28/21 16:00 BMI result Body Mass Index 34.6 Const: General: cooperative HENMT: Head: Yes normal to inspection Mouth: Normal oral and palatal mucosa present Resp: Effort & Inspection: normal respiratory effort GI: Palpation (GI): Soft to palpation and nontender Extrem: Other: LLE mild erythema ,abrasion foot mild tinea? Results Labs CBC & Chem 7: 09/30/21 04:54 09/30/21 04:54 Labs: Short CBC 09/28/21 09/28/21 Range/Units 00:13 07:20 WBC 14.2 H 15.1 H (4.8-10.8) X10*3/uL Hgb 10.9 L 9.7 L (12.0-16.0) g/dl Hct 33.0 L 30.7 L (37.0-47.0) % Plt Count 217 D 180 (160-400) X10*3/uL BMP 09/28/21 09/28/21 00:13 07:20 Sodium 132 L 135 Potassium 4.0 4.5 Chloride 99 108 Carbon Dioxide 20 L 13 L BUN 3 L D 4 L Creatinine 0.77 0.73 Calcium 8.7 D 7.6 L D Liver Function 09/28/21 Range/Units 00:13 Total Bilirubin 0.2 (0.0-1.0) mg/dL AST 24 (5-31) U/L ALT 12 (0-31) U/L Alkaline Phosphatase 74 D (39-117) U/L Albumin 3.8 (3.5-5.0) g/dL Urine 09/28/21 Range/Units 01:19 Urine Color YELLOW Urine Appearance CLEAR Urine pH 5.5 (5.0-8.0) Ur Specific [place] <= 1.005 (1.005-1.025) Urine Protein NEG (NEG-TRACE) MG/DL Urine Glucose (UA) NEG (NEG) MG/DL Assessment and Plan (1) Cellulitis: Status: Acute Patient may have some skin concerns with recurrent trauma leading to cellulitis She also may have some tinea pedis (2) Sepsis: Status: Acute Plan Clindamycin IV Lotrimin cream, When leaves probable PCN V 250 bid prophylaxis indefinitely
--- NOTE | 2021-09-28 16:38 | W.PM.IDCN ---
History of Present Illness Data of Consult Service Date: 09/28/21 Requesting physician: Irasema Jay Primary Care Provider: Jeovanny Ford MD [facility] Reason for consult: left leg red She presents with abrasion LLE on foot and erythema concerns going up leg I had seen her before for same problem 08/2021 She has no fever or chills Review of Systems Review of Systems: Yes all other systems are reviewed and are negative PMFSH Past Medical History Medical History Anxiety and depression Avascular necrosis Chronic pain Diabetes Left against medical advice Restless leg syndrome Family History Family History Father Non Hodgkin's lymphoma Family history: reviewed and not pertinent Surgical History Surgical History History of right hip replacement Social History Social History Household Members: Other Household Members Other:: MOTHER Housing: Apartment Do you presently have visiting nurse or other home services: Yes (visiting nurse for wound care) Alcohol intake: never Patient Tobacco Use Status: Never used Tobacco service: No Current occupational status: unemployed Meds Allergies Allergy/AdvReac Type Severity Reaction Status Date / Time barium iodide [BARIUM IODIDE] Allergy Unknown UNKNOWN Verified 08/02/21 21: carrot [CARROTS] Allergy Unknown UNKOWN Verified 08/02/21 21: clonazepam [CLONAZEPAM] Allergy Unknown UNKNOWN Verified 08/02/21 21: fluoxetine [From PROZAC] Allergy Unknown UNKNOWN Verified 08/02/21 21:22 neris [NERIS] Allergy Unknown UNKNOWN Verified 08/02/21 21:22 lactose [LACTOSE] Allergy Unknown UNKNOWN Verified 08/02/21 21: latex [LATEX] Allergy Unknown UNKNOWN Verified 08/02/21 21: metoclopramide [From REGLAN] Allergy Unknown UNKNOWN Verified 08/02/21 21:22 morphine [MORPHINE] Allergy Unknown UNKNOWN Verified 08/02/21 21:22 oats [OATS] Allergy Unknown UNKNOWN Verified 08/02/21 21:22 peanut [PEANUT] Allergy Unknown UNKNOWN Verified 08/02/21 21:22 pepper (genus Capsicum) Allergy Unknown UNKNOWN Verified 08/02/21 21:22 [PEPPER] potato [POTATO] Allergy Unknown UNKNOWN Verified 08/02/21 21:22 red dye [RED DYE] Allergy Unknown UNKNOWN Verified 08/02/21 21:22 sumatriptan [From IMITREX] Allergy Unknown UNKNOWN Verified 08/02/21 21:22 tetanus and diphtheria Allergy Unknown HIVES Verified 08/02/21 21:22 toxoids [TETANUS AND DIPHTHERIA TOXOIDS] tomato [TOMATO] Allergy Unknown UNKNOWN Verified 08/02/21 21:22 tree nut [TREE NUT] Allergy Unknown UNKNOWN Verified 08/02/21 21:22 cephalexin Allergy Unknown Verified 08/02/21 21:22 AMBICA GUM Allergy Unknown UNKNOWN Uncoded 05/18/20 16:22 Active Medications: Current Medications Acetaminophen (Acetaminophen 325 Mg Tablet) 650 mg PO Q6H PRN PRN Reason: Pain, Mild (Pain Scale 1-3) Last Admin: 09/28/21 13:57 Dose: 650 mg Documented by: Albuterol Sulfate (Albuterol Sulfate 90 Mcg 8 Gm Inhaler) 2 puff INHALE Q4H PRN PRN Reason: Shortness Of Breath Benztropine Mesylate (Benztropine Mesylate 0.5 Mg Tablet) 0.5 mg PO DAILY [facility] Cholestyramine Resin (Cholestyramine (With Sugar) 4 Gm Powd.Pack) 4 gm PO BID [facility] Clomipramine HCl (Clomipramine Hcl 25 Mg Capsule) 150 mg PO BEDTIME [facility] Cyclobenzaprine HCl (Cyclobenzaprine Hcl 10 Mg Tablet) 10 mg PO BID [facility] Dextrose (Dextrose 50 % 25 Gm/50 Ml Syringe) 25 gm IVPUSH Q15M PRN; Protocol PRN Reason: per Hypoglycemia Standing Ord. Docusate Sodium (Docusate Sodium 100 Mg Capsule) 100 mg PO DAILY PRN PRN Reason: Constipation Docusate Sodium (Docusate Sodium 100 Mg Capsule) 100 mg PO DAILY [facility] Enoxaparin Sodium (Enoxaparin Sodium 40 Mg/0.4 Ml Syringe) 40 mg SUBCUT Q24H [facility] Last Admin: 09/28/21 06:03 Dose: 40 mg Documented by: Famotidine (Famotidine 20 Mg Tablet) 40 mg PO DAILY [facility] Fluticasone Propionate (Fluticasone Propionate Nasal 16 Gm [place]) 1 spray NOSTRIL-B DAILY PRN PRN Reason: Allergic Symptoms Gabapentin (Gabapentin 600 Mg Tablet) 600 mg PO 0500,1100,1700,2300 [facility] Last Admin: 09/28/21 16:20 Dose: 600 mg Documented by: Glucose (Glucose Gel 15 Gm Gel..Gram.) 15 gm PO Q15M PRN; Protocol PRN Reason: per Hypoglycemia Standing Ord. Haloperidol (Haloperidol 5 Mg Tablet) 2.5 mg PO TID [facility] Last Admin: 09/28/21 15:17 Dose: Not Given Documented by: Piperacillin Sod/Tazobactam (Sod 3.375 gm/ Sodium Chloride) 50 mls @ 100 mls/hr IV Q6H [facility] Last Infusion: 09/28/21 15:27 Dose: Infused Documented by: Sodium Chloride (Ns) 1,000 mls @ 100 mls/hr IVCONT .Q10H [facility] Last Admin: 09/28/21 16:21 Dose: 100 mls/hr Documented by: Insulin Human Lispro (Insulin Lispro 100 Unit/Ml 3 Ml Vial) 0 unit SUBCUT QIDACHS [facility]; Protocol Last Admin: 09/28/21 12:15 Dose: Not Given Documented by: Levothyroxine Sodium (Levothyroxine Sodium 175 Mcg Tablet) 175 mcg PO DAILY@0630 [facility] Lorazepam (Lorazepam 1 Mg Tablet) 1 mg PO DAILY PRN PRN Reason: Anxiety Lorazepam (Lorazepam 1 Mg Tablet) 1 mg PO TID [facility] Last Admin: 09/28/21 13:57 Dose: 1 mg Documented by: Magnesium Oxide (Magnesium Oxide 400 Mg Tablet) 400 mg PO DAILY [facility] Melatonin (Melatonin 3 Mg Tablet) 9 mg PO BEDTIME PRN PRN Reason: Insomnia Metoprolol Tartrate (Metoprolol Tartrate 25 Mg Tablet) 25 mg PO BID [facility]; Protocol Montelukast Sodium (Montelukast Sodium 10 Mg Tablet) 10 mg PO DAILY [facility] Non-Formulary Medication (Drospirenone-Ethinyl Estradiol [Deneen]) 1 tab PO DAILY [facility] Omeprazole (Omeprazole 20 Mg Capsule.Dr) 20 mg PO DAILY@0630 [facility] Ondansetron HCl (Ondansetron Hcl 4 Mg/2 Ml Vial) 4 mg IVPUSH Q8H PRN PRN Reason: Nausea and Vomiting Last Admin: 09/28/21 12:14 Dose: 4 mg Documented by: Oxycodone HCl (Oxycodone Hcl Immed Release 5 Mg Tablet) 5 mg PO Q6H PRN PRN Reason: Pain, Severe (Pain Scale 7-10) Last Admin: 09/28/21 16:20 Dose: 5 mg Documented by: Quetiapine Fumarate (Quetiapine Fumarate 50 Mg Tablet) 50 mg PO BEDTIME [facility] Ropinirole HCl (Ropinirole Hcl 0.25 Mg Tablet) 0.25 mg PO BEDTIME [facility] Sodium Chloride (0.9 % Sodium Chloride Flush 3 Ml Syringe) 3 ml IVFLUSH QSHIFT [facility] Last Admin: 09/28/21 15:17 Dose: Not Given Documented by: Vitamin D (Cholecalciferol (Vitamin D3) 25 Mcg Tablet) 50 mcg PO DAILY [facility] Home Medications Medication Instructions Recorded Confirmed Last Taken Type albuterol sulfate 90 mcg/actuation 2 puff INHALATION Q4H PRN 08/02/21 09/28/21 Unknown History aerosol inhaler benztropine 0.5 mg tablet 0.5 mg PO DAILY 08/02/21 09/28/21 09/27/21 History cholecalciferol (vitamin D3) 50 50 mcg PO DAILY 08/02/21 09/28/21 09/27/21 History mcg (2,000 unit) tablet (Vitamin D3) clomipramine 75 mg capsule 150 mg PO BEDTIME 08/02/21 09/28/21 09/26/21 History colesevelam 625 mg tablet 2,500 mg PO BID 08/02/21 09/28/21 09/27/21 History cranberry 1,000 mg capsule 4,200 mg PO DAILY 08/02/21 09/28/21 09/27/21 History dexlansoprazole 60 mg 1 cap PO DAILY 08/02/21 09/28/21 09/27/21 History capsule,biphase delayed release (Dexilant) docusate sodium 100 mg capsule 1 cap PO DAILY 08/02/21 09/28/21 09/27/21 History famotidine 40 mg tablet 1 tab PO DAILY 08/02/21 09/28/21 09/27/21 History ferrous sulfate 325 mg (65 mg 325 mg PO DAILY 08/02/21 09/28/21 09/27/21 History iron) tablet (iron) fexofenadine 180 mg tablet 180 mg PO DAILY 08/02/21 09/28/21 09/27/21 History fluticasone propionate 50 1 spray INTRANASAL DAILY PRN 08/02/21 09/28/21 Unknown History mcg/actuation nasal spray,suspension gabapentin 600 mg tablet 600 mg PO 0500,1100,1700,2300 08/02/21 09/28/21 09/27/21 History haloperidol 5 mg tablet 2.5 mg PO TID 08/02/21 09/28/21 09/27/21 History levothyroxine 175 mcg tablet 1 tab PO DAILY@0630 08/02/21 09/28/21 09/27/21 History lorazepam 1 mg tablet 1 mg PO TID 08/02/21 09/28/21 09/27/21 History melatonin 10 mg tablet 10 mg PO BEDTIME PRN 08/02/21 09/28/21 09/27/21 History methocarbamol 750 mg tablet 1 tab PO TID 08/02/21 09/28/21 09/27/21 History montelukast 10 mg tablet 1 tab PO DAILY 08/02/21 09/28/21 09/27/21 History oxycodone-acetaminophen 10 mg-325 2 tab PO QID 08/02/21 09/28/21 09/27/21 History mg tablet quetiapine 100 mg tablet 50 mg PO BEDTIME 08/02/21 09/28/21 09/26/21 History ropinirole 0.5 mg tablet 0.5 tab PO BEDTIME 08/02/21 09/28/21 09/26/21 History clonidine HCl 0.1 mg tablet 0.1 tab PO BID 09/28/21 09/28/21 09/27/21 History drospirenone 3 mg-ethinyl 1 tab PO DAILY 09/28/21 09/28/21 09/27/21 History estradiol 0.03 mg tablet (Deneen) escitalopram oxalate 20 mg tablet 30 mg PO DAILY 09/28/21 09/28/21 09/27/21 History glipizide 5 mg tablet, extended 5 mg PO DAILY 09/28/21 09/28/21 09/27/21 History release 24 hr lorazepam 1 mg tablet 1 mg PO DAILY PRN 09/28/21 09/28/21 Unknown History ondansetron HCl 8 mg tablet 8 mg PO BID PRN 09/28/21 09/28/21 09/27/21 History Physical Exam Vital Signs: Vital Signs: Last Vital Signs Temp 98.2 F 09/28/21 16:00 Pulse 120 H 09/28/21 16:00 Resp 17 09/28/21 16:00 BP 115/65 09/28/21 16:00 Pulse Ox 100 09/28/21 16:00 BMI result Body Mass Index 34.6 Const: General: cooperative HENMT: Head: Yes normal to inspection Mouth: Normal oral and palatal mucosa present Resp: Effort & Inspection: normal respiratory effort GI: Palpation (GI): Soft to palpation and nontender Extrem: Other: LLE mild erythema ,abrasion foot mild tinea? Results Labs CBC & Chem 7: 09/30/21 04:54 09/30/21 04:54 Labs: Short CBC 09/28/21 09/28/21 Range/Units 00:13 07:20 WBC 14.2 H 15.1 H (4.8-10.8) X10*3/uL Hgb 10.9 L 9.7 L (12.0-16.0) g/dl Hct 33.0 L 30.7 L (37.0-47.0) % Plt Count 217 D 180 (160-400) X10*3/uL BMP 09/28/21 09/28/21 00:13 07:20 Sodium 132 L 135 Potassium 4.0 4.5 Chloride 99 108 Carbon Dioxide 20 L 13 L BUN 3 L D 4 L Creatinine 0.77 0.73 Calcium 8.7 D 7.6 L D Liver Function 09/28/21 Range/Units 00:13 Total Bilirubin 0.2 (0.0-1.0) mg/dL AST 24 (5-31) U/L ALT 12 (0-31) U/L Alkaline Phosphatase 74 D (39-117) U/L Albumin 3.8 (3.5-5.0) g/dL Urine 09/28/21 Range/Units 01:19 Urine Color YELLOW Urine Appearance CLEAR Urine pH 5.5 (5.0-8.0) Ur Specific [place] <= 1.005 (1.005-1.025) Urine Protein NEG (NEG-TRACE) MG/DL Urine Glucose (UA) NEG (NEG) MG/DL Assessment and Plan (1) Cellulitis: Status: Acute Patient may have some skin concerns with recurrent trauma leading to cellulitis She also may have some tinea pedis (2) Sepsis: Status: Acute Plan Clindamycin IV Lotrimin cream, When leaves probable PCN V 250 bid prophylaxis indefinitely
[2021-09-28] MEDS: Clindamycin Phosphate/D5W 600 MG/50 ML PIGGYBACK 100 MG IV (17:41)
[2021-09-28] MEDS: clomiPRAMINE HCl 25 MG CAPSULE 150 MG PO (20:18)
[2021-09-28] MEDS: Cyclobenzaprine HCl 10 MG TABLET PO (20:20)
[2021-09-28] MEDS: Metoprolol Tartrate 25 MG TABLET PO (20:21)
[2021-09-28] MEDS: HaloperidoL 5 MG TABLET 2.5 MG PO (20:21)
[2021-09-28] MEDS: rOPINIRole HCL 0.25 MG TABLET PO (20:21)
[2021-09-28] MEDS: QUEtiapine Fumarate 50 MG TABLET PO (20:21)
[2021-09-28 20:38] LABS: Glucose, Whole Blood 128 mg/dL (60-115)
[2021-09-28] MEDS: Clotrimazole 1 % Cream 15 GM TUBE 1 APPL TOPICAL (23:17)
[2021-09-28] MEDS: 0.9 % Sodium Chloride Flush 3 ML SYRINGE IVFLUSH (23:17)
[2021-09-29] VITALS (8 sets, daily range): BP systolic 108–142; BP diastolic 59–78; PULSE 96–110; RESP 18–20; TEMP 35.9–37.1; O2SAT 95–100
[2021-09-29] MEDS: Clindamycin Phosphate/D5W 600 MG/50 ML PIGGYBACK 100 MG IV ×3 (01:49→17:48)
[2021-09-29] MEDS: 0.9 % Sodium Chloride 1,000 ML 100 ML IVCONT (01:53)
[2021-09-29] MEDS: Acetaminophen 325 MG TABLET 650 MG PO ×2 (03:50→11:24)
[2021-09-29] MEDS: Levothyroxine Sodium 175 MCG TABLET PO (05:49)
[2021-09-29] MEDS: Enoxaparin Sodium 40 MG/0.4 ML SYRINGE SUBCUT (05:49)
[2021-09-29] MEDS: Omeprazole 20 MG CAPSULE.DR PO (05:49)
[2021-09-29] MEDS: Gabapentin 600 MG TABLET PO ×4 (05:49→22:31)
[2021-09-29 06:05] LABS: MANUAL DIFF FLAG NO
[2021-09-29 06:12] LABS: Basophils Percent Auto 0.2 % (0-2); Hematocrit 26.2 % (37.0-47.0); Hemoglobin 8.8 g/dl (12.0-16.0); Imm Gran Abs Auto 0.16 X10*3/uL (0.00-0.03); Imm Gran Pct Auto 1.5 % (0.0-0.4); Lymphocytes Absolute Auto 0.8 X10*3/uL (1.2-4.9); Lymphocytes Percent Auto 7.9 % (20-40); Mean Corpuscular HGB Conc 33.6 g/dl (31.0-35.0); Mean Corpuscular Hemoglobin 27.1 pg (27.0-33.0); Mean Corpuscular Volume 80.6 fL (80.0-98.0); Mean Platelet Volume 9.3 fL (9.4-12.3); Monocytes Absolute Auto 0.3 X10*3/uL (0.1-1.2); Monocytes Percent Auto 2.4 % (2-11); Neutrophils Absolute Auto 9.3 x10*3/uL (2.0-8.3); Platelet Count 173 X10*3/uL (160-400); Red Blood Count 3.25 X10*6/uL (4.20-5.50); Red Cell Distribution Width 15.7 % (11.0-16.0); White Blood Count 10.6 X10*3/uL (4.8-10.8)
[2021-09-29 06:54] LABS: Anion Gap 13 (12-20); Blood Urea Nitrogen 6 mg/dL (9-16); Carbon Dioxide 18 mmol/L (22-29); Chloride 103 mmol/L (96-108); Creatinine Clr Calc Pharmacy 172.1; Estimated Glomerular Filt Rate > 60; Glucose Random 141 mg/dL (60-115); Sodium 131 mmol/L (135-145)
[2021-09-29 07:48] LABS: Glucose, Whole Blood 127 mg/dL (60-115)
[2021-09-29] MEDS: Cholestyramine (With Sugar) 4 GM POWD.PACK PO (10:55)
[2021-09-29] MEDS: 0.9 % Sodium Chloride Flush 3 ML SYRINGE IVFLUSH ×3 (10:55→22:39)
[2021-09-29] MEDS: Potassium Chloride ER 20 MEQ TAB.ER.PRT 40 MEQ PO ×2 (10:56→15:30)
[2021-09-29] MEDS: Benztropine Mesylate 0.5 MG TABLET PO (10:57)
[2021-09-29] MEDS: Cholecalciferol (Vitamin D3) 25 MCG TABLET 50 MCG PO (10:57)
[2021-09-29] MEDS: Famotidine 20 MG TABLET 40 MG PO (10:58)
[2021-09-29] MEDS: Cyclobenzaprine HCl 10 MG TABLET PO ×2 (10:58→22:31)
[2021-09-29] MEDS: HaloperidoL 5 MG TABLET 2.5 MG PO ×3 (11:00→22:36)
[2021-09-29] MEDS: Magnesium Oxide 400 MG TABLET PO (11:00)
[2021-09-29] MEDS: Montelukast Sodium 10 MG TABLET PO (11:00)
[2021-09-29] MEDS: Metoprolol Tartrate 25 MG TABLET PO ×2 (11:01→22:32)
[2021-09-29] MEDS: LORazepam 1 MG TABLET PO ×3 (11:02→22:32)
[2021-09-29] MEDS: Docusate Sodium 100 MG CAPSULE PO (11:02)
[2021-09-29] MEDS: Clotrimazole 1 % Cream 15 GM TUBE 1 APPL TOPICAL ×2 (11:14→22:37)
[2021-09-29 12:03] LABS: Glucose, Whole Blood 141 mg/dL (60-115)
--- NOTE | 2021-09-29 12:48 | P.PNIM_ITS ---
Subjective Subjective Date of Service: 09/29/21 Interval History: the patient was seen and evaluated this morning Laying in bed, complaining mainly of back pain Erythema improving in her lower extremity Denies any fever, chills or shortness of breath No reported other overnight events. Systemic review: No fever, chills but has back pain No chest pain, palpitation No shortness of breath or coughing No abdominal pain, nausea or vomiting No urinary symptoms Left lower extremity erythema Physical Exam Verdana 4l Vital Signs: Verdana 4d Verdana 4d Vital Signs: Verdana 4d Verdana 4Bd Last Vital Signs Verdana 4d [employer] Faculty Member New 4d [employer] Faculty Member New 4d Temp 98.8 F 09/29/21 11:54 [employer] Faculty Member New 4d Pulse 96 09/29/21 11:54 [employer] Faculty Member New 4d Resp 18 09/29/21 11:54 BP 128/78 09/29/21 11:54 Pulse Ox 98 09/29/21 11:54 BMI result Body Mass Index 34.6 Const: Other: Constitutional : Alert, oriented, not in distress Neck : Normal inspection, Supple Cardiovascular : RRR, S1 S2, no lower extremity edema Respiratory : Good bilateral air entry, no crackles, wheezes or rhonchi Gastrointestinal: soft, lax, Normal bowel sounds, Non tender Skin : Area of erythema in left lower extremity decreasing in size, tenderness Neurological : Alert & oriented x3, No focal deficit Objective Data Active Medications Acetaminophen (Acetaminophen 325 Mg Tablet) 650 mg PO Q6H PRN PRN Reason: Pain, Mild (Pain Scale 1-3) Last Admin: 09/29/21 11:24 Dose: 650 mg Documented by: YO Albuterol Sulfate (Albuterol Sulfate 90 Mcg 8 Gm Inhaler) 2 puff INHALE Q4H PRN PRN Reason: Shortness Of Breath Benztropine Mesylate (Benztropine Mesylate 0.5 Mg Tablet) 0.5 mg PO DAILY [facility] Last Admin: 09/29/21 10:57 Dose: 0.5 mg Documented by: YO Cholestyramine Resin (Cholestyramine (With Sugar) 4 Gm Powd.Pack) 4 gm PO BID [facility] Last Admin: 09/29/21 10:55 Dose: 4 gm Documented by: YO Clomipramine HCl (Clomipramine Hcl 25 Mg Capsule) 150 mg PO BEDTIME [facility] Last Admin: 09/28/21 20:18 Dose: 150 mg Documented by: SHRUTHI Clotrimazole (Clotrimazole 1 % Cream 15 Gm Tube) 1 appl TOPICAL BID [facility]; Protocol Last Admin: 09/29/21 11:14 Dose: 1 appl Documented by: YO Cyclobenzaprine HCl (Cyclobenzaprine Hcl 10 Mg Tablet) 10 mg PO BID [facility] Last Admin: 09/29/21 10:58 Dose: 10 mg Documented by: YO Dextrose (Dextrose 50 % 25 Gm/50 Ml Syringe) 25 gm IVPUSH Q15M PRN; Protocol PRN Reason: per Hypoglycemia Standing Ord. Docusate Sodium (Docusate Sodium 100 Mg Capsule) 100 mg PO DAILY PRN PRN Reason: Constipation Docusate Sodium (Docusate Sodium 100 Mg Capsule) 100 mg PO DAILY [facility] Last Admin: 09/29/21 11:02 Dose: 100 mg Documented by: YO Enoxaparin Sodium (Enoxaparin Sodium 40 Mg/0.4 Ml Syringe) 40 mg SUBCUT Q24H [facility] Last Admin: 09/29/21 05:49 Dose: 40 mg Documented by: SHRUTHI Famotidine (Famotidine 20 Mg Tablet) 40 mg PO DAILY [facility] Last Admin: 09/29/21 10:58 Dose: 40 mg Documented by: YO Fluticasone Propionate (Fluticasone Propionate Nasal 16 Gm [place]) 1 spray NOSTRIL-B DAILY PRN PRN Reason: Allergic Symptoms Gabapentin (Gabapentin 600 Mg Tablet) 600 mg PO 0500,1100,1700,2300 [facility] Last Admin: 09/29/21 10:59 Dose: 600 mg Documented by: YO Glucose (Glucose Gel 15 Gm Gel..Gram.) 15 gm PO Q15M PRN; Protocol PRN Reason: per Hypoglycemia Standing Ord. Haloperidol (Haloperidol 5 Mg Tablet) 2.5 mg PO TID [facility] Last Admin: 09/29/21 11:00 Dose: 2.5 mg Documented by: YO Clindamycin Phosphate (Cleocin) 600 mg in 50 mls @ 100 mls/hr IV Q8H [facility] Last Infusion: 09/29/21 11:25 Dose: 0 mls/hr Documented by: YO Insulin Human Lispro (Insulin Lispro 100 Unit/Ml 3 Ml Vial) 0 unit SUBCUT QIDACHS [facility]; Protocol Last Admin: 09/29/21 12:04 Dose: Not Given Documented by: [place] Non-Admin Reason: No Insulin Coverage Levothyroxine Sodium (Levothyroxine Sodium 175 Mcg Tablet) 175 mcg PO DAILY@06 [facility] Last Admin: 09/29/21 05:49 Dose: 175 mcg Documented by: SHRUTHI Lorazepam (Lorazepam 1 Mg Tablet) 1 mg PO DAILY PRN PRN Reason: Anxiety Last Admin: 09/28/21 17:41 Dose: 1 mg Documented by: LYSAlicja Lorazepam (Lorazepam 1 Mg Tablet) 1 mg PO TID [facility] Last Admin: 09/29/21 11:02 Dose: 1 mg Documented by: YO Magnesium Oxide (Magnesium Oxide 400 Mg Tablet) 400 mg PO DAILY [facility] Last Admin: 09/29/21 11:00 Dose: 400 mg Documented by: YO Melatonin (Melatonin 3 Mg Tablet) 9 mg PO BEDTIME PRN PRN Reason: Insomnia Metoprolol Tartrate (Metoprolol Tartrate 25 Mg Tablet) 25 mg PO BID [facility]; Protocol Last Admin: 09/29/21 11:01 Dose: 25 mg Documented by: YO Montelukast Sodium (Montelukast Sodium 10 Mg Tablet) 10 mg PO DAILY [facility] Last Admin: 09/29/21 11:00 Dose: 10 mg Documented by: YO Non-Formulary Medication (Drospirenone-Ethinyl Estradiol [Deneen]) 1 tab PO DAILY [facility] Omeprazole (Omeprazole 20 Mg Capsule.Dr) 20 mg PO DAILY@629 [facility] Last Admin: 09/29/21 05:49 Dose: 20 mg Documented by: SHRUTHI Ondansetron HCl (Ondansetron Hcl 4 Mg/2 Ml Vial) 4 mg IVPUSH Q8H PRN PRN Reason: Nausea and Vomiting Last Admin: 09/28/21 12:14 Dose: 4 mg Documented by: OMID Oxycodone HCl (Oxycodone Hcl Immed Release 5 Mg Tablet) 5 mg PO Q6H PRN PRN Reason: Pain, Severe (Pain Scale 7-10) Last Admin: 09/28/21 16:20 Dose: 5 mg Documented by: SHIRLEY Quetiapine Fumarate (Quetiapine Fumarate 50 Mg Tablet) 50 mg PO BEDTIME [facility] Last Admin: 09/28/21 20:21 Dose: 50 mg Documented by: SHRUTHI Ropinirole HCl (Ropinirole Hcl 0.25 Mg Tablet) 0.25 mg PO BEDTIME [facility] Last Admin: 09/28/21 20:21 Dose: 0.25 mg Documented by: SHRUTHI Sodium Chloride (0.9 % Sodium Chloride Flush 3 Ml Syringe) 3 ml IVFLUSH QSHIFT [facility] Last Admin: 09/29/21 10:55 Dose: 3 ml Documented by: YO Vitamin D (Cholecalciferol (Vitamin D3) 25 Mcg Tablet) 50 mcg PO DAILY [facility] Last Admin: 09/29/21 10:57 Dose: 50 mcg Documented by: YO Labs CBC & Chem 7: 09/29/21 05:34 09/29/21 05:34 Labs: Laboratory Results - last 24 hr 09/28/21 09/28/21 09/29/21 16:33 20:33 05:34 MCV 80.6 D MCH 27.1 MCHC 33.6 RDW 15.7 Plt Count 173 MPV 9.3 L Immature Gran % (Auto) 1.5 H Neut % (Auto) 88.0 H Lymph % (Auto) 7.9 L [place] % (Auto) 2.4 Eos % (Auto) 0.0 Baso % (Auto) 0.2 Lymph # (Auto) 0.8 L [place] # (Auto) 0.3 Eos # (Auto) 0.0 Baso # (Auto) 0.0 Abs Immat Gran (auto) 0.16 H Absolute Neuts (auto) 9.3 H Absolute Nucleated RBC 0.000 Nucleated RBC % (auto) 0.0 Anion Gap Estim Creat Clear Calc Estimated GFR POC Glucose 147 H 128 H Random Glucose Calcium 09/29/21 09/29/21 09/29/21 05:34 07:36 11:58 MCV MCH MCHC RDW Plt Count MPV Immature Gran % (Auto) Neut % (Auto) Lymph % (Auto) [place] % (Auto) Eos % (Auto) Baso % (Auto) Lymph # (Auto) [place] # (Auto) Eos # (Auto) Baso # (Auto) Abs Immat Gran (auto) Absolute Neuts (auto) Absolute Nucleated RBC Nucleated RBC % (auto) Anion Gap 13 Estim Creat Clear Calc 172.1 Estimated GFR > 60 POC Glucose 127 H 141 H Random Glucose 141 H Calcium 8.0 L Microbiology Microbiology Results: Microbiology 09/28/21 01:30 Blood Culture - Preliminary Blood - Venous No growth after 24 hours. 09/28/21 01:30 Blood Culture - Preliminary Blood - Venous No growth after 24 hours. Assessment and Plan (1) Sepsis: Status: Acute (2) Cellulitis: Status: Acute (3) NADEEM (acute kidney injury): Status: Acute (4) Acidosis, lactic: Status: Acute (5) Hyponatremia: Status: Acute Plan 31-year-old female with extensive past medical history who presents to the hospital complaining of shortness of breath found to be having sepsis # sepsis? # due to left lower extremity cellulitis ? ? Improving ? ? patient treated for left foot cellulitis and left 5th metatarsal joint ulcer in August 2021 MRI of foot at that time showed no osteomyelitis ?? ? Id input appreciated, When leaves probable PCN V 250 bid prophylaxis indefinitely continue clindamycin Pending cultures # hyponatremia Sodium dropped to 131 while on normal saline Hold IV fluid, likely multifactorial Monitor BMP to do urine electrolytes if worsens #? diabetes ? ? continue diabetic diet insulin sliding scale on glipizide at home #? multiple psych issues ?? ? resume all home medication except hold Lexapro that was discontinued last admission due to hyponatremia #? hypothyroidism -? continue levothyroxine # RLS - continue ropinirole # hypertension soft blood pressure will hold clonidine? and metoprolol, resume medications if blood pressure allows. #? DVT prophylaxis with Lovenox Quality Stroke Does the patient have a stroke diagnosis?: No VTE Prior VTE?: No VTE Risk Level:: Medical - moderate - high VTE Device Contraindication: Treatment Not Indicated VTE Drug Contraindication: N/A - Med Ordered
[2021-09-29 14:02] LABS: Anion Gap 14 (12-20); Blood Urea Nitrogen 5 mg/dL (9-16); Calcium 8.5 mg/dL (8.4-10.2); Carbon Dioxide 18 mmol/L (22-29); Chloride 105 mmol/L (96-108); Creatinine Clr Calc Pharmacy 166.4; Estimated Glomerular Filt Rate > 60; Glucose Random 149 mg/dL (60-115); Potassium 3.1 mmol/L (3.3-5.1); Sodium 134 mmol/L (135-145)
[2021-09-29 16:54] LABS: Glucose, Whole Blood 130 mg/dL (60-115)
[2021-09-29 19:49] LABS: Glucose, Whole Blood 162 mg/dL (60-115)
[2021-09-29] MEDS: QUEtiapine Fumarate 50 MG TABLET PO (22:31)
[2021-09-29] MEDS: rOPINIRole HCL 0.25 MG TABLET PO (22:32)
[2021-09-29] MEDS: clomiPRAMINE HCl 25 MG CAPSULE 150 MG PO (22:33)
[2021-09-29 22:38] LABS: Glucose, Whole Blood 128 mg/dL (60-115)
[2021-09-30] MEDS: Clindamycin Phosphate/D5W 600 MG/50 ML PIGGYBACK 100 MG IV ×3 (01:54→18:06)
[2021-09-30 04:00] VITALS: BP 134/82; PULSE 99; RESP 20; TEMP 36.6; O2SAT 96
[2021-09-30] MEDS: Enoxaparin Sodium 40 MG/0.4 ML SYRINGE SUBCUT (05:26)
[2021-09-30] MEDS: Gabapentin 600 MG TABLET PO ×4 (05:26→22:00)
[2021-09-30] MEDS: Omeprazole 20 MG CAPSULE.DR PO (05:26)
[2021-09-30] MEDS: Levothyroxine Sodium 175 MCG TABLET PO (05:26)
[2021-09-30 05:31] LABS: Hematocrit 29.4 % (37.0-47.0); Hemoglobin 9.6 g/dl (12.0-16.0); Mean Corpuscular HGB Conc 32.7 g/dl (31.0-35.0); Mean Corpuscular Hemoglobin 26.9 pg (27.0-33.0); Mean Corpuscular Volume 82.4 fL (80.0-98.0); Mean Platelet Volume 9.4 fL (9.4-12.3); Platelet Count 210 X10*3/uL (160-400); Red Blood Count 3.57 X10*6/uL (4.20-5.50); Red Cell Distribution Width 15.9 % (11.0-16.0); White Blood Count 7.5 X10*3/uL (4.8-10.8)
[2021-09-30 05:58] LABS: Anion Gap 14 (12-20); Blood Urea Nitrogen 5 mg/dL (9-16); Calcium 8.6 mg/dL (8.4-10.2); Carbon Dioxide 19 mmol/L (22-29); Chloride 107 mmol/L (96-108); Creatinine Clr Calc Pharmacy 161.2; Estimated Glomerular Filt Rate > 60; Glucose Random 121 mg/dL (60-115); Potassium 3.1 mmol/L (3.3-5.1); Sodium 137 mmol/L (135-145)
[2021-09-30 07:09] VITALS: BP 142/80; PULSE 99; RESP 18; TEMP 36.4; O2SAT 98
[2021-09-30 07:27] LABS: Glucose, Whole Blood 129 mg/dL (60-115)
[2021-09-30] MEDS: Benztropine Mesylate 0.5 MG TABLET PO (07:30)
[2021-09-30] MEDS: Famotidine 20 MG TABLET 40 MG PO (07:30)
[2021-09-30] MEDS: Montelukast Sodium 10 MG TABLET PO (07:31)
[2021-09-30] MEDS: Metoprolol Tartrate 25 MG TABLET PO (07:31)
[2021-09-30] MEDS: Magnesium Oxide 400 MG TABLET PO (07:31)
[2021-09-30] MEDS: LORazepam 1 MG TABLET PO ×3 (07:31→20:23)
[2021-09-30] MEDS: Docusate Sodium 100 MG CAPSULE PO (07:31)
[2021-09-30] MEDS: HaloperidoL 5 MG TABLET 2.5 MG PO ×3 (07:32→20:24)
[2021-09-30] MEDS: Cyclobenzaprine HCl 10 MG TABLET PO ×2 (07:32→20:24)
[2021-09-30] MEDS: Cholecalciferol (Vitamin D3) 25 MCG TABLET 50 MCG PO (07:32)
[2021-09-30] MEDS: 0.9 % Sodium Chloride Flush 3 ML SYRINGE IVFLUSH ×3 (07:33→20:27)
[2021-09-30] MEDS: Clotrimazole 1 % Cream 15 GM TUBE 1 APPL TOPICAL ×2 (07:36→20:33)
[2021-09-30] MEDS: Potassium Chloride ER 20 MEQ TAB.ER.PRT 40 MEQ PO (09:37)
[2021-09-30 11:39] VITALS: BP 112/65; PULSE 89; RESP 18; TEMP 37; O2SAT 95
[2021-09-30 11:47] LABS: Glucose, Whole Blood 64 mg/dL (60-115)
[2021-09-30 12:11] LABS: CDiff Gene PCR NEGATIVE (Negative)
--- NOTE | 2021-09-30 12:14 | P.PNIM_ITS ---
Subjective Subjective Date of Service: 09/30/21 Interval History: the patient was seen and evaluated this morning Laying in bed, complaining of diarrhea Erythema improving in her lower extremity No reported other overnight events. Systemic review: No fever, chills but has back pain No chest pain, palpitation No shortness of breath or coughing No abdominal pain, nausea or vomiting but having diarrhea No urinary symptoms Left lower extremity erythema Physical Exam Verdana 4l Vital Signs: Verdana 4d Verdana 4d Vital Signs: Verdana 4d Verdana 4Bd Last Vital Signs Verdana 4d Java Core Developer New 4d Java Core Developer New 4d Temp 98.6 F 09/30/21 11:39 Java Core Developer New 4d Pulse 89 09/30/21 11:39 Java Core Developer New 4d Resp 18 09/30/21 11:39 BP 112/65 09/30/21 11:39 Pulse Ox 95 09/30/21 11:39 BMI result Body Mass Index 34.6 Const: Other: Constitutional : Alert, oriented, not in distress Neck : Normal inspection, Supple Cardiovascular : RRR, S1 S2, no lower extremity edema Respiratory : Good bilateral air entry, no crackles, wheezes or rhonchi Gastrointestinal: soft, lax, Normal bowel sounds, Non tender Skin : Area of erythema in left lower extremity decreasing in size, no tenderness Neurological : Alert & oriented x3, No focal deficit Objective Data Active Medications Acetaminophen (Acetaminophen 325 Mg Tablet) 650 mg PO Q6H PRN PRN Reason: Pain, Mild (Pain Scale 1-3) Last Admin: 09/29/21 11:24 Dose: 650 mg Documented by: YO Albuterol Sulfate (Albuterol Sulfate 90 Mcg 8 Gm Inhaler) 2 puff INHALE Q4H PRN PRN Reason: Shortness Of Breath Benztropine Mesylate (Benztropine Mesylate 0.5 Mg Tablet) 0.5 mg PO DAILY [facility] Last Admin: 09/30/21 07:30 Dose: 0.5 mg Documented by: YO Cholestyramine Resin (Cholestyramine (With Sugar) 4 Gm Powd.Pack) 4 gm PO BID [facility] Last Admin: 09/30/21 07:41 Dose: Not Given Documented by: YO Non-Admin Reason: Patient Refused Clomipramine HCl (Clomipramine Hcl 25 Mg Capsule) 150 mg PO BEDTIME [facility] Last Admin: 09/29/21 22:33 Dose: 150 mg Documented by: KINA Clotrimazole (Clotrimazole 1 % Cream 15 Gm Tube) 1 appl TOPICAL BID [facility]; Protocol Last Admin: 09/30/21 07:36 Dose: 1 appl Documented by: YO Cyclobenzaprine HCl (Cyclobenzaprine Hcl 10 Mg Tablet) 10 mg PO BID [facility] Last Admin: 09/30/21 07:32 Dose: 10 mg Documented by: YO Dextrose (Dextrose 50 % 25 Gm/50 Ml Syringe) 25 gm IVPUSH Q15M PRN; Protocol PRN Reason: per Hypoglycemia Standing Ord. Docusate Sodium (Docusate Sodium 100 Mg Capsule) 100 mg PO DAILY PRN PRN Reason: Constipation Docusate Sodium (Docusate Sodium 100 Mg Capsule) 100 mg PO DAILY [facility] Last Admin: 09/30/21 07:31 Dose: 100 mg Documented by: YO Enoxaparin Sodium (Enoxaparin Sodium 40 Mg/0.4 Ml Syringe) 40 mg SUBCUT Q24H [facility] Last Admin: 09/30/21 05:26 Dose: 40 mg Documented by: CLAUDIO Famotidine (Famotidine 20 Mg Tablet) 40 mg PO DAILY [facility] Last Admin: 09/30/21 07:30 Dose: 40 mg Documented by: YO Fluticasone Propionate (Fluticasone Propionate Nasal 16 Gm [place]) 1 spray NOSTRIL-B DAILY PRN PRN Reason: Allergic Symptoms Gabapentin (Gabapentin 600 Mg Tablet) 600 mg PO 0500,1100,1700,2300 [facility] Last Admin: 09/30/21 10:51 Dose: 600 mg Documented by: YO Glucose (Glucose Gel 15 Gm Gel..Gram.) 15 gm PO Q15M PRN; Protocol PRN Reason: per Hypoglycemia Standing Ord. Haloperidol (Haloperidol 5 Mg Tablet) 2.5 mg PO TID [facility] Last Admin: 09/30/21 07:32 Dose: 2.5 mg Documented by: YO Clindamycin Phosphate (Cleocin) 600 mg in 50 mls @ 100 mls/hr IV Q8H [facility] Last Infusion: 09/30/21 10:07 Dose: 0 mls/hr Documented by: YO Insulin Human Lispro (Insulin Lispro 100 Unit/Ml 3 Ml Vial) 0 unit SUBCUT QIDACHS [facility]; Protocol Last Admin: 09/30/21 07:40 Dose: Not Given Documented by: YO Non-Admin Reason: No Insulin Coverage Lactic Acid (Ammonium Lactate 12 % Lotion 226 Gm Bottle) 1 appl TOPICAL BID [facility]; Protocol Levothyroxine Sodium (Levothyroxine Sodium 175 Mcg Tablet) 175 mcg PO DAILY@629 [facility] Last Admin: 09/30/21 05:26 Dose: 175 mcg Documented by: CLAUDIO Loperamide HCl (Loperamide Hcl 2 Mg Capsule) 4 mg PO Q4H PRN PRN Reason: Diarrhea Lorazepam (Lorazepam 1 Mg Tablet) 1 mg PO DAILY PRN PRN Reason: Anxiety Last Admin: 09/28/21 17:41 Dose: 1 mg Documented by: SHIRLEY Lorazepam (Lorazepam 1 Mg Tablet) 1 mg PO TID [facility] Last Admin: 09/30/21 07:31 Dose: 1 mg Documented by: YO Magnesium Oxide (Magnesium Oxide 400 Mg Tablet) 400 mg PO DAILY [facility] Last Admin: 09/30/21 07:31 Dose: 400 mg Documented by: YO Melatonin (Melatonin 3 Mg Tablet) 9 mg PO BEDTIME PRN PRN Reason: Insomnia Metoprolol Tartrate (Metoprolol Tartrate 25 Mg Tablet) 25 mg PO BID [facility]; Protocol Last Admin: 09/30/21 07:31 Dose: 25 mg Documented by: YO Montelukast Sodium (Montelukast Sodium 10 Mg Tablet) 10 mg PO DAILY [facility] Last Admin: 09/30/21 07:31 Dose: 10 mg Documented by: YO Non-Formulary Medication (Drospirenone-Ethinyl Estradiol [Deneen]) 1 tab PO DAILY [facility] Omeprazole (Omeprazole 20 Mg Capsule.) 20 mg PO DAILY@629 [facility] Last Admin: 09/30/21 05:26 Dose: 20 mg Documented by: CLAUDIO Ondansetron HCl (Ondansetron Hcl 4 Mg/2 Ml Vial) 4 mg IVPUSH Q8H PRN PRN Reason: Nausea and Vomiting Last Admin: 09/28/21 12:14 Dose: 4 mg Documented by: OMID Oxycodone HCl (Oxycodone Hcl Immed Release 5 Mg Tablet) 5 mg PO Q6H PRN PRN Reason: Pain, Severe (Pain Scale 7-10) Last Admin: 09/28/21 16:20 Dose: 5 mg Documented by: SHIRLEY Quetiapine Fumarate (Quetiapine Fumarate 50 Mg Tablet) 50 mg PO BEDTIME [facility] Last Admin: 09/29/21 22:31 Dose: 50 mg Documented by: KINA Ropinirole HCl (Ropinirole Hcl 0.25 Mg Tablet) 0.25 mg PO BEDTIME [facility] Last Admin: 09/29/21 22:32 Dose: 0.25 mg Documented by: KINA Sodium Chloride (0.9 % Sodium Chloride Flush 3 Ml Syringe) 3 ml IVFLUSH QSHIFT [facility] Last Admin: 09/30/21 07:33 Dose: 3 ml Documented by: YO Vitamin D (Cholecalciferol (Vitamin D3) 25 Mcg Tablet) 50 mcg PO DAILY [facility] Last Admin: 09/30/21 07:32 Dose: 50 mcg Documented by: YO Labs CBC & Chem 7: 09/30/21 04:54 09/30/21 04:54 Labs: Laboratory Results - last 24 hr 09/29/21 09/29/21 09/29/21 13:28 15:42 18:53 MCV MCH MCHC RDW Plt Count MPV Absolute Nucleated RBC Nucleated RBC % (auto) Anion Gap 14 Estim Creat Clear Calc 166.4 Estimated GFR > 60 POC Glucose 130 H 162 H Random Glucose 149 H Calcium 8.5 D C. difficile Tox B Gene 09/29/21 09/30/21 09/30/21 22:27 04:54 04:54 MCV 82.4 MCH 26.9 L MCHC 32.7 RDW 15.9 Plt Count 210 MPV 9.4 Absolute Nucleated RBC 0.000 Nucleated RBC % (auto) 0.0 Anion Gap 14 Estim Creat Clear Calc 161.2 Estimated GFR > 60 POC Glucose 128 H Random Glucose 121 H Calcium 8.6 C. difficile Tox B Gene 09/30/21 09/30/21 09/30/21 07:12 11:44 Unknown MCV MCH MCHC RDW Plt Count MPV Absolute Nucleated RBC Nucleated RBC % (auto) Anion Gap Estim Creat Clear Calc Estimated GFR POC Glucose 129 H 64 Random Glucose Calcium C. difficile Tox B Gene NEGATIVE Microbiology Microbiology Results: Microbiology 09/28/21 01:30 Blood Culture - Preliminary Blood - Venous No growth after 48 hours. 09/28/21 01:30 Blood Culture - Preliminary Blood - Venous No growth after 48 hours. Assessment and Plan (1) Hyponatremia: Status: Acute (2) Cellulitis: Status: Acute (3) Diarrhea: Status: Acute Plan 31-year-old female with extensive past medical history who presents to the hospital complaining of shortness of breath found to be having sepsis # sepsis?, resolved # due to left lower extremity cellulitis ? ? Improving ? ? patient treated for left foot cellulitis and left 5th metatarsal joint ulcer in August 2021 MRI of foot at that time showed no osteomyelitis ?? Id input appreciated, When leaves probable PCN V 250 bid prophylaxis indefinitely continue clindamycin Clotrimazole cream for possible tinea pedis Moisturizer for dry skin Pending cultures # diarrhea Seems functional, negative for C diff To use Imodium as needed # hyponatremia Sodium dropped to 131 while on normal saline Hold IV fluid, likely multifactorial Monitor BMP to do urine electrolytes if worsens #? diabetes ? ? continue diabetic diet insulin sliding scale on glipizide at home #? multiple psych issues ?? ? resume all home medication except hold Lexapro that was discontinued last admission due to hyponatremia #? hypothyroidism ? continue levothyroxine # RLS continue ropinirole # hypertension soft blood pressure will hold clonidine and metoprolol resume medications if blood pressure allows. #? DVT prophylaxis with Lovenox Quality Stroke Does the patient have a stroke diagnosis?: No VTE Prior VTE?: No VTE Risk Level:: Medical - moderate - high VTE Device Contraindication: Treatment Not Indicated VTE Drug Contraindication: N/A - Med Ordered
[2021-09-30] MEDS: Ammonium Lactate 12 % Lotion 226 GM BOTTLE 1 APPL TOPICAL ×2 (12:58→20:36)
[2021-09-30 13:04] LABS: Glucose, Whole Blood 152 mg/dL (60-115)
[2021-09-30 16:00] VITALS: BP 121/76; PULSE 88; RESP 18; TEMP 37.1; O2SAT 98
[2021-09-30 16:52] LABS: Glucose, Whole Blood 111 mg/dL (60-115)
[2021-09-30] MEDS: Acetaminophen 325 MG TABLET 650 MG PO (18:06)
[2021-09-30 19:15] VITALS: BP 135/79; PULSE 101; RESP 18; TEMP 36.8; O2SAT 97
[2021-09-30 19:54] LABS: Glucose, Whole Blood 184 mg/dL (60-115)
[2021-09-30] MEDS: QUEtiapine Fumarate 50 MG TABLET PO (20:23)
[2021-09-30] MEDS: rOPINIRole HCL 0.25 MG TABLET PO (20:23)
[2021-09-30] MEDS: clomiPRAMINE HCl 25 MG CAPSULE 150 MG PO (20:25)
[2021-09-30] MEDS: oxyCODONE HCl Immed Release 5 MG TABLET PO (22:00)
[2021-09-30 23:15] VITALS: BP 119/64; PULSE 96; RESP 18; TEMP 36.4; O2SAT 95
[2021-10-01] MEDS: Clindamycin Phosphate/D5W 600 MG/50 ML PIGGYBACK 100 MG IV ×2 (02:27→10:33)
[2021-10-01 04:00] VITALS: BP 153/75; PULSE 81; RESP 18; TEMP 36.3; O2SAT 96
[2021-10-01 04:23] VITALS: BP 121/83; PULSE 96; RESP 18; TEMP 36.2; O2SAT 97
[2021-10-01 05:12] LABS: Anion Gap 17 (12-20); Blood Urea Nitrogen 4 mg/dL (9-16); Carbon Dioxide 22 mmol/L (22-29); Chloride 102 mmol/L (96-108); Creatinine Clr Calc Pharmacy 147.1; Estimated Glomerular Filt Rate > 60; Glucose Random 123 mg/dL (60-115); Potassium 3.1 mmol/L (3.3-5.1); Sodium 138 mmol/L (135-145)
[2021-10-01] MEDS: Levothyroxine Sodium 175 MCG TABLET PO (05:44)
[2021-10-01] MEDS: Gabapentin 600 MG TABLET PO ×2 (05:44→10:33)
[2021-10-01] MEDS: Omeprazole 20 MG CAPSULE.DR PO (05:44)
[2021-10-01] MEDS: Enoxaparin Sodium 40 MG/0.4 ML SYRINGE SUBCUT (05:44)
[2021-10-01] MEDS: oxyCODONE HCl Immed Release 5 MG TABLET PO (06:43)
[2021-10-01 07:40] VITALS: BP 133/83; PULSE 105; RESP 18; TEMP 36.3; O2SAT 97
[2021-10-01 07:53] LABS: Glucose, Whole Blood 136 mg/dL (60-115)
[2021-10-01] MEDS: HaloperidoL 5 MG TABLET 2.5 MG PO ×2 (08:30→14:57)
[2021-10-01] MEDS: 0.9 % Sodium Chloride Flush 3 ML SYRINGE IVFLUSH (08:31)
[2021-10-01] MEDS: Cyclobenzaprine HCl 10 MG TABLET PO (08:31)
[2021-10-01] MEDS: LORazepam 1 MG TABLET PO ×2 (08:31→14:57)
[2021-10-01] MEDS: Potassium Chloride ER 20 MEQ TAB.ER.PRT 40 MEQ PO (08:31)
[2021-10-01] MEDS: Docusate Sodium 100 MG CAPSULE PO (08:32)
[2021-10-01] MEDS: Magnesium Oxide 400 MG TABLET PO (08:32)
[2021-10-01] MEDS: Famotidine 20 MG TABLET 40 MG PO (08:32)
[2021-10-01] MEDS: Montelukast Sodium 10 MG TABLET PO (08:32)
[2021-10-01] MEDS: Cholecalciferol (Vitamin D3) 25 MCG TABLET 50 MCG PO (08:33)
[2021-10-01] MEDS: Benztropine Mesylate 0.5 MG TABLET PO (08:33)
--- NOTE | 2021-10-01 10:00 | MHC.CLN ---
NUTRITION PATIENT WITH DX DIABETES AND MULTIPLE FOOD ALLERGIES. KITCHEN AWARE OF FOOD ALLERGIES. DIET CHANGED TO DIABETIC 2000 KCAL, LACTOSE FREE.
--- NOTE | 2021-10-01 10:19 | P.DS_ITS ---
DS: Providers Provider Date of Service: 10/01/21 Date of admission: 09/28/21 04:38 Primary care physician: Jeovanny Ford MD Consults: 09/28/21 04:36 Consult to Infectious Diseases Routine Consulting Provider: Sharon Guerra Reason for consultation: cellulitis Has provider been notified: No DS: Diagnosis Discharge Diagnosis (1) Cellulitis: Status: Acute (2) Sepsis: Status: Acute (3) Hypokalemia: Status: Acute (4) Hyponatremia: Status: Acute DS: Summary Hospital Course Hospital Course: Admission note HPI This is a 31-year-old female with extensive past medical history including diabetes, GERD, depression, anxiety, chronic pain, hypothyroidism, restless leg syndrome who presents to the hospital today in anxious mood, reports that she had difficulty breathing, she had palpitations she was very anxious she was very worried, she recently discovered that a family member had tested positive for COVID, given that she is not vaccinated against COVID she was very anxious and worried and therefore came to the hospital.? Patient was discharged from the hospital on 08/10 after she was found to be hyponatremic, and found to have sepsis from cellulitis/foot ulcer.? She was at that time treated with IV vancomycin but developed amoxicillin toxicity, subsequently changed to Zosyn, and subsequently transitioned to mouth amoxicillin for 1 week.? Patient reports compliance and that she completed her antibiotics.? Patient reports that her left lower extremity redness is chronic but has an ulcer at the left 5th metatarsal, that has been there since last admission, foot MRI on 08/03 of the foot showed no evidence of osteomyelitis. The left lower extremity redness was found to be secondary to dermatitis and was recommended to use steroid cream which is not clear patient has been using it. On arrival to the ED patient found to have a temp of 105.7?, heart rate of 129, respiratory rate of 21, blood pressure of 152/74 satting 97 room air. Labs are significant for WBC count of 14.2, hemoglobin of 10.9 which is around her baseline, sodium of 132, lactic acid of 6.2, UA negative, COVID-19 negative Chest x-ray showed clear lungs Abdominal pelvic CT showed no acute inflammatory change of the abdomen or pelvis, but did find mildly prominent lymph nodes along the left iliac chain and left inguinal region where there is inflammatory stranding, these are likely reactive. Hospital course The patient was on be septic as a result of having left lower extremity gisell lulitis that was part in the emergency and she was started on broad-spectrum antibiotics with fair response as the sepsis resolved the next day and she was evaluated by infectious disease specialist who recommended clindamycin treatment IV and to be on penicillin V after discharge for prophylaxis of recurrent skin infection. Started on clotrimazole cream for tinea pedis. Started on lotion for the legs to decrease skin dryness. Noted to have hypo natremia that resolved with usage of IV fluid. Reported diarrhea. Tested negative for C diff. Believed to be functional and improved with usage of Imodium. Time Spent with Patient Time attestation: Total time spent providing and/or coordinating discharge services: Discharge coordination time: Greater than 30 minutes Quality: Stroke Does the patient have a stroke diagnosis?: No Physical Exam Verdana 4l Vital Signs: Verdana 4d Verdana 4d Vital Signs: Verdana 4d Verdana 4Bd Last Vital Signs Verdana 4d Pump Press Operator New 4d Pump Press Operator New 4d Temp 97.4 F 10/01/21 07:40 Pump Press Operator New 4d Pulse 105 H 10/01/21 07:40 Pump Press Operator New 4d Resp 18 10/01/21 07:40 BP 133/83 10/01/21 07:40 Pulse Ox 97 10/01/21 07:40 BMI result Body Mass Index 34.6 Const: Other: Constitutional : Alert, oriented, not in distress Neck : Normal inspection, Supple Cardiovascular : RRR, S1 S2, no lower extremity edema Respiratory : Good bilateral air entry, no crackles, wheezes or rhonchi Gastrointestinal: soft, lax, Normal bowel sounds, Non tender Skin : Area of erythema in left lower extremity decreasing in size, less shiny, no tenderness or drainage note Neurological : Alert & oriented x3, No focal deficit DS: Data Data Completed and Pending Labs on day of discharge: Laboratory Results - last 24 hr 09/30/21 09/30/21 09/30/21 11:44 12:54 16:46 Sodium Potassium Chloride Carbon Dioxide Anion Gap BUN Creatinine Estim Creat Clear Calc Estimated GFR POC Glucose 64 152 H 111 Random Glucose Calcium C. difficile Tox B Gene 09/30/21 09/30/21 10/01/21 19:17 Unknown 03:59 Sodium 138 Potassium 3.1 L Chloride 102 Carbon Dioxide 22 Anion Gap 17 BUN 4 L Creatinine 0.69 Estim Creat Clear Calc 147.1 Estimated GFR > 60 POC Glucose 184 H Random Glucose 123 H Calcium 9.0 C. difficile Tox B Gene NEGATIVE 10/01/21 07:43 Sodium Potassium Chloride Carbon Dioxide Anion Gap BUN Creatinine Estim Creat Clear Calc Estimated GFR POC Glucose 136 H Random Glucose Calcium C. difficile Tox B Gene Preliminary micro results at discharge 09/28/21 01:30 Blood Culture - Preliminary Blood - Venous No growth after 48 hours. 09/28/21 01:30 Blood Culture - Preliminary Blood - Venous No growth after 48 hours. Discharge Plan Discharge Patient Disposition: Home, Self-Care Discharge Diagnosis: Sepsis secondary to cellulitis Acute kidney injury Referrals: Ignacia NARANJO [Outside] - 1 Day (long-term) Jeovanny Ford MD [Primary Care Provider] - 1 Week Discharge Medications: New ammonium lactate 12 % Lotion 1 appl topical BID 14 Days 0RF Protocol: Apply to: Apply to: bilateral lower extremities loperamide 2 mg Capsule 4 mg PO Q4H PRN (Reason: Diarrhea) Qty: 30 1RF clotrimazole 1 % Cream 1 appl topical BID 7 Days 0RF Protocol: Apply to: Apply to: between toes clindamycin HCl 300 mg capsule 300 mg PO Q8H 5 Days Qty: 15 0RF penicillin V potassium 250 mg tablet 250 mg PO BID Qty: 60 0RF Continued metoprolol tartrate 25 mg tablet 25 mg PO BID Qty: 60 1RF magnesium oxide 400 mg (241.3 mg magnesium) tablet 400 mg PO DAILY Qty: 30 3RF levothyroxine 175 mcg tablet 1 tab PO DAILY@0630 0RF gabapentin 600 mg tablet 600 mg PO 0500,1100,1700,2300 0RF clomipramine 75 mg capsule 150 mg PO BEDTIME 0RF famotidine 40 mg tablet 1 tab PO DAILY 0RF quetiapine 100 mg tablet 50 mg PO BEDTIME 0RF methocarbamol 750 mg tablet 1 tab PO TID 0RF oxycodone-acetaminophen 10-325 mg tablet 2 tab PO QID 0RF ropinirole 0.5 mg tablet 0.5 tab PO BEDTIME 0RF docusate sodium 100 mg capsule 1 cap PO DAILY 0RF montelukast 10 mg tablet 1 tab PO DAILY 0RF lorazepam 1 mg tablet 1 mg PO TID 0RF fluticasone propionate 50 mcg/actuation spray,suspension 1 spray intranasal DAILY PRN (Reason: Allergic Symptoms) 0RF Dexilant 60 mg capsule,biphase delayed releas 1 cap PO DAILY 0RF benztropine 0.5 mg tablet 0.5 mg PO DAILY 0RF haloperidol 5 mg tablet 2.5 mg PO TID 0RF fexofenadine 180 mg Tablet 180 mg PO DAILY 0RF colesevelam 625 mg tablet 2,500 mg PO BID 0RF ferrous sulfate [iron] 325 mg (65 mg iron) Tablet 325 mg PO DAILY 0RF albuterol sulfate 90 mcg/actuation HFA aerosol inhaler 2 puff inhalation Q4H PRN (Reason: Shortness Of Breath) 0RF cranberry 1,000 mg Capsule 4,200 mg PO DAILY 0RF cholecalciferol (vitamin D3) [Vitamin D3] 50 mcg (2,000 unit) Tablet 50 mcg PO DAILY 0RF melatonin 10 mg Tablet 10 mg PO BEDTIME PRN (Reason: Insomnia) 0RF escitalopram oxalate 20 mg tablet 30 mg PO DAILY 0RF clonidine HCl 0.1 mg tablet 0.1 tab PO BID 0RF glipizide 5 mg tablet extended release 24 hr 5 mg PO DAILY 0RF ondansetron HCl 8 mg tablet 8 mg PO BID PRN (Reason: Nausea) 0RF lorazepam 1 mg Tablet 1 mg PO DAILY PRN (Reason: Anxiety) 0RF drospirenone-ethinyl estradiol [Deneen] 3-0.03 mg tablet 1 tab PO DAILY 0RF Discharge Orders: Discharge Order (Routine); Ordered 10/01/21 Ordered By: Nichole Verduzco Activity on Discharge: As tolerated Stand Alone Forms: Patient Portal Discharge page Care Plan Goals: Read below Health Concerns: Read below Plan of Treatment: Read below Assessment: You were admitted to the hospital for evaluation of fevers. Found to have left lower extremity cellulitis and acute kidney injury. Treated with IV fluid, IV antibiotics as you were evaluated by infectious disease specialist. You improved overall as your kidneys improved back to normal and the fever broke down. Continue 5 more days of clindamycin , to start penicillin 250 mg twice daily after that Keep your leg elevated, wash every day with water and soap and use moisturizer Use anti fungal cream on your feet Imodium as needed for diarrhea To follow-up with PCP as scheduled and with Dr. Guerra after calling the office for an appointment in 1 month or so. Come back to the hospital for recurrent fever, worsening erythema over swelling in your leg. Discharge Date/Time: 10/01/21 16:00
--- NOTE | 2021-10-01 10:21 | MHC.CM.PN ---
Addendum entered by Wanda Maravilla RN 10/01/21 12:38: PT WILL D/C W/[facility], FAMILY FOR TRANSPORT. Original Note: PT MEDICALLY CLEARED FOR D/C HOME NO SERVICES, PT WILL ARRANGE OWN TRANSPORT.
[2021-10-01] MEDS: Ammonium Lactate 12 % Lotion 226 GM BOTTLE 1 APPL TOPICAL (10:38)
[2021-10-01] MEDS: Clotrimazole 1 % Cream 15 GM TUBE 1 APPL TOPICAL ×2 (10:39)
[2021-10-01 11:48] VITALS: BP 134/86; PULSE 110; RESP 18; TEMP 36.2; O2SAT 97
[2021-10-01 11:53] LABS: Glucose, Whole Blood 116 mg/dL (60-115)
--- NOTE | 2021-10-01 12:43 | W.MHC.F2F ---
Service Date Service Date: 10/01/21 Encounter Date of encounter: 10/01/21 Reasons for Services Signs and symptoms assessed: Left lower extremity cellulitis Reason for long term: wound care and teach disease management Homebound: Leaving the home is medically contraindicated at this time without the asist of a device and/or another person due th the listed conditions above and below. Reason homebound: other Certification: Based on the above findings, I certify that this patient is confined to the home and needs intermittent long term care, physical therapy and/or speech therapy, or continues to need occupational therapy. The patient is under my care, and I have initiated the establishment of the plan of care. The patient will be followed by a physician who will periodically review the plan of care.
== END 2021-10-01 16:00 | disposition home or self-care (01) | DRG 872 ==
LOC: HO.ED 09-28 04:27 → HO.EDOVER 09-28 04:50 → HO.S3 09-28 14:45
PROVIDERS: Emergency Medicine; Hospitalist; Admitting Provider Internal Medicine; Emergency Provider Internal Medicine; PCP Internal Medicine; Visit Provider Student in an Organized Health Care Education/Training Program
DX: A41.9 Sepsis, unspecified organism (principal); E87.2 Acidosis; L03.116 Cellulitis of left lower limb; N17.9 Acute kidney failure, unspecified; E87.1 Hypo-osmolality and hyponatremia; K21.9 Gastro-esophageal reflux disease without esophagitis; R19.7 Diarrhea, unspecified; G25.81 Restless legs syndrome; E87.6 Hypokalemia; E03.9 Hypothyroidism, unspecified; E11.621 Type 2 diabetes mellitus with foot ulcer; L97.529 Non-pressure chronic ulcer of other part of left foot with unspecified severity; F32.A Depression, unspecified; F41.0 Panic disorder [episodic paroxysmal anxiety]; Z20.822 Contact with and (suspected) exposure to COVID-19; Z79.890 Hormone replacement therapy; Z79.899 Other long term (current) drug therapy
CPT/HCPCS: 0241U; 36415; 71045; 74176; 80048; 80053; 81003; 81025; 82947; 83605; 83690; 85025; 85027; 85652; 86140; 87040; 87493; 87635; 96361; 96365; 96367; 96375; 99285; J1650; J2060; J2405; J2543; J2550; J3370

== ENCOUNTER → 2021-11-05 08:00 | Outpatient (BNVA) | payer MEDICARE, MEDICAID, SELFPAY | PROVIDERS: Visit Provider Psychiatry & Neurology Neurology | DX: G43.909 Migraine, unspecified, not intractable, without status migrainosus (principal); F95.2 Tourette's disorder | CPT/HCPCS: Q3014 ==

== ENCOUNTER → 2021-11-09 15:09 | Outpatient (BNVA) | payer MEDICARE, MEDICAID, SELFPAY | PROVIDERS: PCP Internal Medicine; Visit Provider Internal Medicine | DX: L03.90 Cellulitis, unspecified (principal) | CPT/HCPCS: 99212 ==

== ENCOUNTER 2021-11-28 14:08 | Outpatient (REF) | payer MEDICARE, MEDICAID, SELFPAY ==
[2021-11-28 14:25] LABS: Appearance Urine CLEAR; Color Urine STRAW; Glucose Urine UA NEG (NEG); Leukocyte Esterase Urine 1+ (NEG); Nitrite Urine NEG (NEG); PH 5.5 (5.0-8.0); Specific Gravity - Urine <= 1.005 (1.005-1.025); Urine Blood 2+ (NEG); Urine Ketones NEG (NEG); Urine Protein NEG (NEG-TRACE)
[2021-11-28 14:35] LABS: Bacteria Urine 3+ /LPF; Squamous Epithelial Cell Urine 2+ /LPF
== END 2021-11-28 14:09 | disposition home or self-care (01) ==
LOC: HO.HVNA 14:08
PROVIDERS: Visit Provider Internal Medicine
DX: N39.0 Urinary tract infection, site not specified (principal); R30.9 Painful micturition, unspecified
CPT/HCPCS: 81001; 87086; 87088; 87186

== ENCOUNTER 2021-12-19 14:07 | Outpatient (REF) | payer MEDICARE, MEDICAID, SELFPAY ==
[2021-12-19 14:25] LABS: Appearance Urine HAZY; Color Urine YELLOW; Glucose Urine UA NEG (NEG); Leukocyte Esterase Urine 2+ (NEG); Nitrite Urine NEG (NEG); UACC Culture Trigger YES; Urine Blood NEG (NEG); Urine Ketones NEG (NEG); Urine Protein NEG (NEG-TRACE)
[2021-12-19 14:35] LABS: Bacteria Urine 2+ /LPF; RBC Urine 0-2 /HPF (0); Squamous Epithelial Cell Urine 2+ /LPF; WBC Urine TNTC /HPF (0-4)
== END 2021-12-19 14:08 | disposition home or self-care (01) ==
LOC: HO.HVNA 14:07
PROVIDERS: Visit Provider Physician Assistant
DX: R30.0 Dysuria (principal)
CPT/HCPCS: 81001; 87086; 87088; 87186

== ENCOUNTER → 2022-02-05 14:27 | Outpatient (BNVA) | payer MEDICARE, MEDICAID, SELFPAY | PROVIDERS: PCP Internal Medicine; Visit Provider Psychiatry & Neurology Neurology | DX: F95.2 Tourette's disorder (principal); G43.909 Migraine, unspecified, not intractable, without status migrainosus; Z79.899 Other long term (current) drug therapy | CPT/HCPCS: 99212 ==

== ENCOUNTER → 2022-05-21 10:16 | Outpatient (BNVA) | payer MEDICARE, MEDICAID, SELFPAY | PROVIDERS: PCP Internal Medicine; Visit Provider Internal Medicine | DX: L03.90 Cellulitis, unspecified (principal) | CPT/HCPCS: 99212 ==

== ENCOUNTER 2022-09-17 14:40 | Outpatient (REF) | payer OTHER, SELFPAY ==
[2022-09-17 17:49] LABS: MANUAL DIFF FLAG NO
[2022-09-17 17:54] LABS: Basophils Percent Auto 0.5 % (0-2); Eosinophils Absolute Auto 0.3 X10*3/uL (0.0-0.4); Eosinophils Percent Auto 4.1 % (0-4); Hematocrit 35.3 % (37.0-47.0); Imm Gran Abs Auto 0.02 X10*3/uL (0.00-0.03); Imm Gran Pct Auto 0.3 % (0.0-0.4); Lymphocytes Absolute Auto 2.6 X10*3/uL (1.2-4.9); Lymphocytes Percent Auto 35.2 % (20-40); Mean Corpuscular Volume 82.3 fL (80.0-98.0); Mean Platelet Volume 9.1 fL (9.4-12.3); Monocytes Absolute Auto 0.4 X10*3/uL (0.1-1.2); Monocytes Percent Auto 4.9 % (2-11); Neutrophils Absolute Auto 4.1 x10*3/uL (2.0-8.3); Platelet Count 269 X10*3/uL (160-400); Red Blood Count 4.29 X10*6/uL (4.20-5.50); Red Cell Distribution Width 13.1 % (11.0-16.0); White Blood Count 7.4 X10*3/uL (4.8-10.8)
[2022-09-17 18:35] LABS: Appearance Urine Clear; Bacteria Urine None Seen (None Seen); Color Urine Yellow; Glucose Urine UA Negative (Negative); Hyaline Casts Urine 0-2 /LPF (0-2); Leukocyte Esterase Urine Negative (Negative); Nitrite Urine Negative (Negative); PH 5.5 (5.0-9.0); RBC Urine 0-2 /HPF (0-2); Specific Gravity - Urine <= 1.005 (1.005-1.025); Squamous Epithelial Cell Urine 0-2 /HPF (0-2); Urine Blood Negative (Negative); Urine Ketones Negative (Negative); Urine Protein Negative (Neg-Trace); WBC Urine 0-5 /HPF (0-5)
[2022-09-17 18:36] LABS: Erythrocyte Sedimentation Rate 6 MM/HR (0-20)
[2022-09-17 18:38] LABS: Alanine Aminotransferase 10 U/L (0-31); Albumin Level 3.9 g/dL (3.5-5.0); Alkaline Phosphatase 53 U/L (39-117); Anion Gap 14 (12-20); Aspartate Amino Transferase 19 U/L (5-31); Bilirubin Total 0.2 mg/dL (0.0-1.0); Blood Urea Nitrogen 5 mg/dL (9-16); C Reactive Protein 1.54 mg/dL (< or = 0.50); Calcium 9.2 mg/dL (8.4-10.2); Carbon Dioxide 25 mmol/L (22-29); Chloride 97 mmol/L (96-108); Estimated Glomerular Filt Rate > 60; Glucose Random 113 mg/dL (60-115); Potassium 4.4 mmol/L (3.3-5.1); Rheumatoid Factor < 13.0 IU/mL (<15.0); Sodium 132 mmol/L (135-145); Total Protein 6.3 g/dL (6.5-8.0); Uric Acid 3.2 mg/dL (2.4-5.7)
[2022-09-17 18:55] LABS: Free T4 (Free Thyroxine) 0.86 ng/dL (0.71-1.85); Vitamin D 25-OH Total 34.6 ng/mL (>30)
[2022-09-17 19:12] LABS: Folate 2.2 ng/mL (> or = 4.0); Vitamin B12 342 pg/mL (200-900)
[2022-09-19 18:19] LABS: DHEA Sulfate 51 mcg/dL (19-237); Follicle Stimulating Hormone <0.7 mIU/mL; Lutenizing Hormone <0.2 mIU/mL; Prolactin 27.1 ng/mL
[2022-09-23 16:23] LABS: Anti Nuclear Antibody Screen NEGATIVE (NEGATIVE)
[2022-09-23 17:14] LABS: Progesterone 0.3 ng/mL
[2022-09-24 14:04] LABS: Testosterone, Total 14 ng/dL (2-45)
[2022-09-26 22:09] LABS: Estradiol Free 0.04 pg/mL; Estradiol, Ultrasensitive 4 pg/mL
== END 2022-09-17 14:41 | disposition home or self-care (01) ==
LOC: HO.MANLDS 14:40
PROVIDERS: Visit Provider Physician Assistant
DX: F95.2 Tourette's disorder (principal); N10 Acute pyelonephritis; R61 Generalized hyperhidrosis; M25.50 Pain in unspecified joint; E28.2 Polycystic ovarian syndrome
CPT/HCPCS: 36415; 80053; 81001; 82306; 82607; 82627; 82670; 82681; 82746; 83001; 83002; 84144; 84146; 84403; 84439; 84443; 84550; 85025; 85652; 86038; 86039; 86140; 86431; 87086; 87088; 87186

== ENCOUNTER 2023-01-06 15:07 | Outpatient (REF) | payer OTHER, SELFPAY ==
[2023-01-06 18:38] LABS: Appearance Urine Clear; Color Urine Yellow; Glucose Urine UA Negative (Negative); Leukocyte Esterase Urine Negative (Negative); Nitrite Urine Negative (Negative); PH 5.5 (5.0-9.0); Specific Gravity - Urine <= 1.005 (1.005-1.025); Urine Blood Negative (Negative); Urine Ketones Negative (Negative); Urine Protein Negative (Neg-Trace)
== END 2023-01-06 15:08 | disposition home or self-care (01) ==
LOC: HO.MANLNP 15:07
PROVIDERS: Visit Provider Physician Assistant
DX: R30.0 Dysuria (principal)
CPT/HCPCS: 81003

== ENCOUNTER 2023-11-24 22:27 | Emergency (ER) | payer OTHER, SELFPAY ==
[2023-11-24 22:32] VITALS: BP 91/59; BP 98/47; PULSE 84; PULSE 88; RESP 16; TEMP 37.1; O2SAT 98; BMI 29.7
[2023-11-24 22:46] VITALS: BP 109/67
--- NOTE | 2023-11-24 22:49 | MHC.EDTECH ---
Patient inc therefore patient changed
[2023-11-24 22:52] LABS: MANUAL DIFF FLAG NO
[2023-11-24 22:53] LABS: Basophils Percent Auto 0.7 % (0-2); Eosinophils Absolute Auto 0.3 X10*3/uL (0.0-0.4); Eosinophils Percent Auto 4.3 % (0-4); Hematocrit 32.9 % (37.0-47.0); Hemoglobin 10.9 g/dl (12.0-16.0); Imm Gran Abs Auto 0.02 X10*3/uL (0.00-0.03); Imm Gran Pct Auto 0.3 % (0.0-0.4); Lymphocytes Absolute Auto 2.1 X10*3/uL (1.2-4.9); Lymphocytes Percent Auto 34.7 % (20-40); Mean Corpuscular HGB Conc 33.1 g/dl (31.0-35.0); Mean Corpuscular Hemoglobin 28.5 pg (27.0-33.0); Mean Corpuscular Volume 85.9 fL (80.0-98.0); Mean Platelet Volume 10.2 fL (9.4-12.3); Monocytes Absolute Auto 0.6 X10*3/uL (0.1-1.2); Monocytes Percent Auto 9.2 % (2-11); Neutrophils Absolute Auto 3.1 x10*3/uL (2.0-8.3); Neutrophils Percent Auto 50.8 % (45-73); Platelet Count 175 X10*3/uL (160-400); Red Blood Count 3.83 X10*6/uL (4.20-5.50); Red Cell Distribution Width 14.2 % (11.0-16.0); White Blood Count 6.1 X10*3/uL (4.8-10.8)
--- NOTE | 2023-11-24 23:19 | PC.NURSE ---
pt straight cathed for urine as pt reports hx septic shock d/t uti. pt tolerated well. afebrile. vss. speaking full clear sentences axox4. call sandoval within reach.
--- NOTE | 2023-11-24 23:20 | ED_ITS ---
HPI - General Adult General Chief complaint: General Medical Stated complaint: hypotension Time Seen by Provider: 11/24/23 22:35 Source: patient Mode of arrival: EMS History of Present Illness HPI narrative: 33-year-old female is brought in by EMS from rehab facility when she was asleep and staff stated that they were unable to get a normal blood pressure on her and had to sternal rub her. Patient states that she has known history of low blood pressure, repeat blood pressure by EMS demonstrated good improvement after IV fluids, patient otherwise denies any new cough, abdominal discomfort or dysuria but states that she has had previous significant septic shock secondary to urinary sepsis. Patient also received midodrine at the facility. Related Data Home Medications Medication Instructions Recorded Confirmed albuterol sulfate 90 mcg/actuation 2 puff inhalation Q4H PRN 08/02/21 02/05/22 aerosol inhaler Shortness Of Breath cholecalciferol (vitamin D3) 50 50 mcg PO DAILY 08/02/21 02/05/22 mcg (2,000 unit) tablet (Vitamin D3) colesevelam 625 mg tablet 2,500 mg PO BID 08/02/21 02/05/22 cranberry 1,000 mg capsule 4,200 mg PO DAILY 08/02/21 09/28/21 dexlansoprazole 60 mg 1 cap PO DAILY 08/02/21 02/05/22 capsule,biphase delayed release (Dexilant) docusate sodium 100 mg capsule 1 cap PO DAILY 08/02/21 02/05/22 famotidine 40 mg tablet 1 tab PO DAILY 08/02/21 02/05/22 ferrous sulfate 325 mg (65 mg 325 mg PO DAILY 08/02/21 02/05/22 iron) tablet (iron) fexofenadine 180 mg tablet 180 mg PO DAILY 08/02/21 02/05/22 fluticasone propionate 50 1 spray intranasal DAILY PRN 08/02/21 02/05/22 mcg/actuation nasal Allergic Symptoms spray,suspension haloperidol 5 mg tablet 2.5 mg PO TID 08/02/21 02/05/22 levothyroxine 175 mcg tablet 1 tab PO DAILY@0630 08/02/21 02/05/22 lorazepam 1 mg tablet 1 mg PO TID 08/02/21 02/05/22 melatonin 10 mg tablet 10 mg PO BEDTIME PRN Insomnia 08/02/21 02/05/22 methocarbamol 750 mg tablet 1 tab PO TID 08/02/21 02/05/22 montelukast 10 mg tablet 1 tab PO DAILY 08/02/21 02/05/22 oxycodone-acetaminophen 10 mg-325 2 tab PO QID 08/02/21 02/05/22 mg tablet quetiapine 100 mg tablet 50 mg PO BEDTIME 08/02/21 02/05/22 drospirenone 3 mg-ethinyl 1 tab PO DAILY 09/28/21 02/05/22 estradiol 0.03 mg tablet (Deneen) escitalopram oxalate 20 mg tablet 30 mg PO DAILY 09/28/21 02/05/22 glipizide 5 mg tablet, extended 5 mg PO DAILY 09/28/21 02/05/22 release 24 hr lorazepam 1 mg tablet 1 mg PO DAILY PRN Anxiety 09/28/21 02/05/22 ondansetron HCl 8 mg tablet 8 mg PO BID PRN Nausea 09/28/21 02/05/22 benztropine 0.5 mg tablet 0.5 mg PO TID 11/05/21 02/05/22 clomipramine 75 mg capsule 150 mg PO BEDTIME 11/05/21 02/05/22 ropinirole 0.5 mg tablet 1 mg PO BEDTIME 11/05/21 02/05/22 magnesium oxide 400 mg PO DAILY 02/05/22 02/05/22 meclizine 25 mg tablet 25 mg PO BID PRN 02/05/22 02/05/22 penicillamine 250 mg capsule 250 mg PO BID 02/05/22 02/05/22 Previous Rx's Medication Instructions Recorded ammonium lactate 12 % lotion 1 appl topical BID 2 weeks 10/01/21 clotrimazole 1 % topical cream 1 appl topical BID 1 week 10/01/21 loperamide 2 mg capsule 4 mg (2 x 2 mg) PO Q4H PRN 10/01/21 Diarrhea #30 caps magnesium oxide 400 mg (241.3 mg 400 mg PO DAILY #30 tabs 01/29/22 magnesium) tablet clonidine HCl 0.1 mg tablet 0.1 mg PO BID #60 tabs 03/15/22 metoprolol tartrate 25 mg tablet 25 mg PO BID #180 tabs 05/02/22 gabapentin 600 mg tablet 600 mg PO QID #120 tabs 05/21/22 penicillin V potassium 250 mg 250 mg PO BID 30 days #60 tabs 10/08/22 tablet Allergies Allergy/AdvReac Type Severity Reaction Status Date / Time levofloxacin Allergy Mild Difficulty Verified 05/21/22 10:35 Swallowing nitrofurantoin Allergy Mild Unknown Verified 05/21/22 10:35 barium iodide [BARIUM IODIDE] Allergy Unknown UNKNOWN Verified 05/21/22 10:35 carrot [CARROTS] Allergy Unknown UNKOWN Verified 05/21/22 10:35 clonazepam [CLONAZEPAM] Allergy Unknown UNKNOWN Verified 05/21/22 10:35 fluoxetine [From PROZAC] Allergy Unknown UNKNOWN Verified 05/21/22 10:35 neris [NERIS] Allergy Unknown UNKNOWN Verified 05/21/22 10:35 lactose [LACTOSE] Allergy Unknown UNKNOWN Verified 05/21/22 10:35 latex [LATEX] Allergy Unknown UNKNOWN Verified 05/21/22 10:35 metoclopramide [From REGLAN] Allergy Unknown UNKNOWN Verified 05/21/22 10:35 morphine [MORPHINE] Allergy Unknown UNKNOWN Verified 05/21/22 10:35 oats [OATS] Allergy Unknown UNKNOWN Verified 05/21/22 10:35 peanut [PEANUT] Allergy Unknown UNKNOWN Verified 05/21/22 10:35 pepper (genus Capsicum) Allergy Unknown UNKNOWN Verified 05/21/22 10:35 [PEPPER] potato [POTATO] Allergy Unknown UNKNOWN Verified 05/21/22 10:35 red dye [RED DYE] Allergy Unknown UNKNOWN Verified 05/21/22 10:35 sumatriptan [From IMITREX] Allergy Unknown UNKNOWN Verified 05/21/22 10:35 tetanus and diphtheria Allergy Unknown HIVES Verified 05/21/22 10:35 toxoids [TETANUS AND DIPHTHERIA TOXOIDS] tomato [TOMATO] Allergy Unknown UNKNOWN Verified 05/21/22 10:35 tree nut [TREE NUT] Allergy Unknown UNKNOWN Verified 05/21/22 10:35 cephalexin Allergy Unknown Verified 05/21/22 10:35 AMBICA GUM Allergy Unknown UNKNOWN Uncoded 05/21/22 10:35 Review of Systems 2 Review of Systems: Pertinent positives and negatives as stated in HPI [facility] Past Medical History Source: nursing notes reviewed Medical History Recurrent cellulitis Migraine Tourettes disease Avascular necrosis Restless leg syndrome Anxiety and depression Chronic pain Diabetes Left against medical advice Surgical History History of left hip replacement History of right hip replacement Family History Family History Father Non Hodgkin's lymphoma Social History Social History Household Members: Other Household Members Other:: MOTHER Housing: Apartment Do you presently have visiting nurse or other home services: Yes (visiting nurse for wound care) Alcohol intake: never Comment: pt refused bed alarm Patient Tobacco Use Status: Never used Tobacco Smoked in Last 30 Days: No Use of substances other than those prescribed or required for medical reasons: No Advance Directives: No Advance Directives Information Provided: No service: No Current occupational status: unemployed Physical Exam ED Vital Signs: Vital Signs - 24 hr 11/24/23 22:32 11/24/23 22:46 Temperature 98.8 F Pulse Rate 84 Respiratory Rate 16 Blood Pressure 98/47 L 109/67 Pulse Oximetry 98 Oxygen Delivery Method Room Air BMI result Body Mass Index 29.7 VITAL SIGNS: Reviewed. GENERAL: Well developed, well nourished, in no acute distress. HEAD: Normocephalic/atraumatic EYES: PERRLA, EOMI LUNGS: Normal breath sounds. No adventitious sounds or accessory muscle use. SpO2<98> CARDIOVASCULAR: Regular rate and rhythm without noted murmurs ABDOMEN: Soft, non-tender, non-distended with bowel sounds. MUSCULOSKELETAL: No tenderness, deformities, or effusions noted on gross inspection. EXTREMITIES: No cyanosis, clubbing or edema. SKIN: Inspection of the skin reveals no rashes NEUROLOGIC: Alert and oriented x 4. Strength and sensation to light touch were grossly intact x 2, and otherwise patient known to have decreased strength in bilateral lower extremities. Medical Decision Making Medical Decision Making MDM Narrative: 33-year-old female with history and clinical presentation, DDX: Neurogenic hypotension/postural, dehydration, urinary tract infection, viral illness. Reviewed all investigations and hematologic indices are chronically stable without leukocytosis/left shift/thrombocytopenia and there is a stable normocytic anemia. Chemistry indices do not demonstrate any NADEEM and there is a very mild low potassium which was repleted with 60 mEq potassium chloride orally there is minor elevation of AST/ALT and otherwise urinalysis is negative for UTI or hematuria. Patient's blood pressure has remained within normal limits, it is noted that she is on metoprolol and my recommendation will be to hold this medication until patient's blood pressure is re-evaluated by the supervising physician. Differential Diagnosis Differential Diagnoses: The differential diagnosis associated with the presentation includes Please see the discussion above Admission/Observation Consideration of admission/observation: Escalation of care including admission/observation considered Please see the discussion above Lab Data MDM Lab Attestation statement: I reviewed the patient's lab results. Please see the discussion above 11/24/23 22:48 11/24/23 23:24 Labs: Lab Results 11/24/23 11/24/23 11/24/23 Range/Units 22:48 23:15 23:24 WBC 6.1 (4.8-10.8) X10*3/uL RBC 3.83 L (4.20-5.50) X10*6/uL Hgb 10.9 L (12.0-16.0) g/dl Hct 32.9 L (37.0-47.0) % MCV 85.9 (80.0-98.0) fL MCH 28.5 (27.0-33.0) pg MCHC 33.1 (31.0-35.0) g/dl RDW 14.2 (11.0-16.0) % Plt Count 175 D (160-400) X10*3/uL MPV 10.2 (9.4-12.3) fL Immature Gran % (Auto) 0.3 (0.0-0.4) % Neut % (Auto) 50.8 (45-73) % Lymph % (Auto) 34.7 (20-40) % [place] % (Auto) 9.2 (2-11) % Eos % (Auto) 4.3 H (0-4) % Baso % (Auto) 0.7 (0-2) % Lymph # (Auto) 2.1 (1.2-4.9) X10*3/uL [place] # (Auto) 0.6 (0.1-1.2) X10*3/uL Eos # (Auto) 0.3 (0.0-0.4) X10*3/uL Baso # (Auto) 0.0 (0.0-0.2) X10*3/uL Abs Immat Gran (auto) 0.02 (0.00-0.03) X10*3/uL Absolute Neuts (auto) 3.1 (2.0-8.3) x10*3/uL Absolute Nucleated RBC 0.000 (0.0-0.012) X10*3/uL Nucleated RBC % (auto) 0.0 (0.0-0.2) /100WBC Sodium 141 (135-145) mmol/L Potassium 3.2 L (3.3-5.1) mmol/L Chloride 108 (96-108) mmol/L Carbon Dioxide 24 (22-29) mmol/L Anion Gap 12 (12-20) BUN 3 L (9-16) mg/dL Creatinine 0.57 (0.5-1.4) mg/dL Estim Creat Clear Calc 161.9 Estimated GFR > 60 Random Glucose 122 H (60-115) mg/dL Calcium 9.6 (8.4-10.2) mg/dL Total Bilirubin 0.4 (0.0-1.0) mg/dL AST 83 H (5-31) U/L ALT 87 H (0-31) U/L Alkaline Phosphatase 76 (39-117) U/L Total Protein 5.7 L (6.5-8.0) g/dL Albumin 3.5 (3.5-5.0) g/dL Urine Color Yellow Urine Appearance Clear Urine pH 6.0 (5.0-9.0) Ur Specific [place] <= 1.005 (1.005-1.025) Urine Protein Negative (Neg-Trace) mg/dL Urine Glucose (UA) Negative (Negative) mg/dL Urine Ketones Negative (Negative) mg/dL Urine Blood Negative (Negative) Urine Nitrite Negative (Negative) Ur Leukocyte Esterase Negative (Negative) External Record Review External record reviewed: Outpatient record, Prior outpatient labs and Prior outpatient radiology Critical Care Time Critical Care Time Critical Care Time: Yes Total Critical Care Time: 30 Attestation: I personally attest to this time spent taking care of the patient. Discharge Plan Discharge Clinical Impression: Hypokalemia, Hypotension Patient Disposition: Xfer Other Instructions: Hypotension (ED), Potassium Content of Foods List (ED), Hypokalemia (ED) Additional Instructions: 1. Recommend that supervising physician re-evaluate patient's blood pressure and assess need for medications that may lower this further to prevent repeat low readings. 2. Workup today was negative for evidence to suggest infection, patient received IV fluids and is otherwise discharged back to the facility in stable condition. Return to the ER for any worsening symptoms. Prescriptions: No Action magnesium oxide 400 mg (241.3 mg magnesium) tablet 400 mg PO DAILY Qty: 30 3RF clonidine HCl 0.1 mg tablet 0.1 mg PO BID Qty: 60 6RF metoprolol tartrate 25 mg tablet 25 mg PO BID Qty: 180 2RF gabapentin 600 mg tablet 600 mg PO QID Qty: 120 3RF penicillin V potassium 250 mg tablet 250 mg PO BID 30 Days Qty: 60 5RF levothyroxine 175 mcg tablet 1 tab PO DAILY@0630 famotidine 40 mg tablet 1 tab PO DAILY quetiapine 100 mg tablet 50 mg PO BEDTIME methocarbamol 750 mg tablet 1 tab PO TID oxycodone-acetaminophen 10-325 mg tablet 2 tab PO QID docusate sodium 100 mg capsule 1 cap PO DAILY montelukast 10 mg tablet 1 tab PO DAILY lorazepam 1 mg tablet 1 mg PO TID fluticasone propionate 50 mcg/actuation spray,suspension 1 spray intranasal DAILY PRN (Reason: Allergic Symptoms) Dexilant 60 mg capsule,biphase delayed releas 1 cap PO DAILY haloperidol 5 mg tablet 2.5 mg PO TID fexofenadine 180 mg Tablet 180 mg PO DAILY colesevelam 625 mg tablet 2,500 mg PO BID ferrous sulfate [iron] 325 mg (65 mg iron) Tablet 325 mg PO DAILY albuterol sulfate 90 mcg/actuation HFA aerosol inhaler 2 puff inhalation Q4H PRN (Reason: Shortness Of Breath) cranberry 1,000 mg Capsule 4,200 mg PO DAILY cholecalciferol (vitamin D3) [Vitamin D3] 50 mcg (2,000 unit) Tablet 50 mcg PO DAILY melatonin 10 mg Tablet 10 mg PO BEDTIME PRN (Reason: Insomnia) escitalopram oxalate 20 mg tablet 30 mg PO DAILY glipizide 5 mg tablet extended release 24 hr 5 mg PO DAILY ondansetron HCl 8 mg tablet 8 mg PO BID PRN (Reason: Nausea) lorazepam 1 mg Tablet 1 mg PO DAILY PRN (Reason: Anxiety) drospirenone-ethinyl estradiol [Deneen] 3-0.03 mg tablet 1 tab PO DAILY ammonium lactate 12 % Lotion 1 appl topical BID 14 Days 0RF Protocol: Apply to: Apply to: bilateral lower extremities loperamide 2 mg Capsule 4 mg PO Q4H PRN (Reason: Diarrhea) Qty: 30 1RF clotrimazole 1 % Cream 1 appl topical BID 7 Days 0RF Protocol: Apply to: Apply to: between toes penicillamine 250 mg capsule 250 mg PO BID Rx Instructions: administer on an empty stomach, 1 hour before or 2-3 hours after meals meclizine 25 mg tablet 25 mg PO BID PRN magnesium oxide 400 mg magnesium capsule 400 mg PO DAILY benztropine 0.5 mg tablet 0.5 mg PO TID clomipramine 75 mg capsule 150 mg PO BEDTIME Patient Comments: 2 caps 75 mg and 1 cap 50 mg for total 200mg ropinirole 0.5 mg tablet 1 mg PO BEDTIME Referrals: Jeovanny Ford MD [Primary Care Provider] -
[2023-11-24 23:37] LABS: Appearance Urine Clear; Color Urine Yellow; Glucose Urine UA Negative (Negative); Leukocyte Esterase Urine Negative (Negative); Nitrite Urine Negative (Negative); Specific Gravity - Urine <= 1.005 (1.005-1.025); Urine Blood Negative (Negative); Urine Ketones Negative (Negative); Urine Protein Negative (Neg-Trace)
[2023-11-24 23:43] LABS: Alanine Aminotransferase 87 U/L (0-31); Albumin Level 3.5 g/dL (3.5-5.0); Alkaline Phosphatase 76 U/L (39-117); Anion Gap 12 (12-20); Aspartate Amino Transferase 83 U/L (5-31); Bilirubin Total 0.4 mg/dL (0.0-1.0); Blood Urea Nitrogen 3 mg/dL (9-16); Calcium 9.6 mg/dL (8.4-10.2); Carbon Dioxide 24 mmol/L (22-29); Chloride 108 mmol/L (96-108); Creatinine Clr Calc Pharmacy 161.9; Estimated Glomerular Filt Rate > 60; Glucose Random 122 mg/dL (60-115); Potassium 3.2 mmol/L (3.3-5.1); Sodium 141 mmol/L (135-145); Total Protein 5.7 g/dL (6.5-8.0)
[2023-11-25] MEDS: Potassium Chloride ER 20 MEQ TAB.ER.PRT 60 MEQ PO (00:36)
[2023-11-25 01:43] VITALS: BP 111/68; PULSE 98; RESP 16; TEMP 37.1; O2SAT 98
== END 2023-11-25 01:48 | disposition other institution (70) ==
PROVIDERS: Emergency Provider Student in an Organized Health Care Education/Training Program; PCP Internal Medicine
DX: I95.9 Hypotension, unspecified (principal); E87.6 Hypokalemia; E11.9 Type 2 diabetes mellitus without complications
CPT/HCPCS: 36415; 51701; 80053; 81003; 85025; 99283; 99284

== ENCOUNTER 2024-03-22 12:36 | Outpatient (REF) | payer OTHER, SELFPAY ==
[2024-03-22 17:46] LABS: Appearance Urine Clear; Color Urine Yellow; Glucose Urine UA Negative (Negative); Leukocyte Esterase Urine Trace (Negative); Nitrite Urine Negative (Negative); Specific Gravity - Urine <= 1.005 (1.005-1.025); UMIC TRIGGER UACC YES; Urine Blood Negative (Negative); Urine Ketones Negative (Negative); Urine Protein Negative (Neg-Trace)
[2024-03-22 17:49] LABS: Bacteria Urine None Seen (None Seen); Hyaline Casts Urine 0-2 /LPF (0-2); RBC Urine 0-2 /HPF (0-2); Squamous Epithelial Cell Urine 0-2 /HPF (0-2); WBC Urine 0-5 /HPF (0-5)
== END 2024-03-22 12:37 | disposition home or self-care (01) ==
LOC: HO.MANLDS 12:36
PROVIDERS: Visit Provider Physician Assistant
DX: N39.0 Urinary tract infection, site not specified (principal)
CPT/HCPCS: 81001